=== PATIENT | male | born 1955 | race Caucasian/White ===

== ENCOUNTER → 2024-06-10 | Outpatient (CLI) | payer MEDICARE, SELFPAY ==
[2024-06-10 17:35] LABS: Color, Urine Yellow (Yellow); Glucose, Dipstick Normal (Normal); Ketone-Dipstick 5 mg/dl (Negative); Leukocyte Esterase-Dipstick 25 /ul (Negative); Nitrite-Dipstick Negative (Negative); Occult Blood-Urine 10 /ul (Negative); Protein-Dipstick Negative (Negative); Specific Gravity, Urine 1.025 (1.002-1.030); Urine Bilirubin Dipstick Negative (Negative); Urine Clarity Clear (Clear); Urine Urobilinogen 1 mg/dl (Normal)
[2024-06-10 17:42] LABS: Absolute Lymphocyte Count 4.28 X10^3/uL (0.83-4.51); Absolute Neutrophil Count 8.1 X10^3/uL (2.0-7.7); Basophil% 0.7 % (0-1); Eosinophil# 0.23 X10^3/uL; Eosinophils% 1.7 % (0-5); Hematocrit 45.1 % (40-54); Hemoglobin 14.4 g/dL (13.0-16.5); Lymphocyte # 4.28 X10^3/ul (0.83-4.51); Lymphocyte % 31.3 % (19-41); Mean Corp Hgb Conc 31.9 g/dL (32-36); Mean Corpuscular Hgb 28.3 pg (27.0-32.0); Mean Corpuscular Volume 88.6 fL (80-94); Mean Platelet Vol. 9.9 fl (6.2-12.0); Monocyte# 0.89 X10^3/uL; Monocyte% 6.5 % (0-10); NRBC Flagged by Analyzer 0 % (0-5); Neutrophil % 59.4 % (47-70); Platelet Count 372 K/mm3 (150-450); RBC Distribution Width CV 13.2 % (11.6-14.6); RBC Distribution Width SD 43.1 fl (35.1-43.9); Red Blood Count 5.09 M/mm3 (4.6-6.2); White Blood Count 13.7 K/mm3 (4.4-11.0)
[2024-06-10 18:20] LABS: ALB/GLOB Ratio 0.9 RATIO (0.9-2.4); AST(SGOT) 15 U/L (15-37); Alanine Aminotransfer ALT/SGPT 22 U/L (16-61); Albumin, Serum 3.5 g/dL (3.2-5.0); Alkaline Phosphatase 66 U/L (45-117); Anion Gap 5 (5-15); BUN 19 mg/dL (7-18); BUN/Creat Ratio 20.7 RATIO (10-20); Calcium,Total 8.8 mg/dL (8.5-10.1); Chloride 108 mmol/L (98-107); Cholesterol 189 mg/dL (200); Creatinine, Serum 0.92 mg/dL (0.70-1.30); EST Glomerular Filtration Rate 87 mL/min (>60); Est Glom Filt Rate - Afr Amer 105 mL/min (>60); Globulin 3.7 g/dL (2.2-4.2); Glucose 92 mg/dL (74-106); High Density Lipoprotein 42 mg/dL; Potassium 4.1 mmol/L (3.5-5.1); Protein, Total 7.2 g/dL (6.4-8.2); Sodium Level 142 mmol/L (136-145); T4 Free Direct 1.05 ng/dL (0.76-1.46); Thyroid Stim Hormone (TSH) 0.384 uIU/mL (0.358-3.740); Triglycerides 240 mg/dL; Very Low Density Lipoprotein 48 mg/dL (5-40)
[2024-06-10 19:04] LABS: White Blood Cells 10-25 SEEN /hpf (0-5)
[2024-06-10 19:06] LABS: Mucous, Urine 1+ /hpf (<or=2+); Red Blood Cells-Urine 0-5 SEEN /hpf (0-5); Squamous Epithelial Cells - UA 0-5 SEEN /hpf (0-5)
[2024-06-10 19:08] LABS: Bacteria RARE /hpf (None Seen)
[2024-06-15 09:08] LABS: Anti-Thyroglobulin AB < 1.0 IU/mL (0.0-0.9); Thyroglobulin, Serum Qt. 8.2 ng/mL (1.4-29.2); Thyroid Peroxidase AB 14 IU/mL (0-34); Thyroid Stim Immunoglob <0.10 IU/L (0.00-0.55)
== END | disposition home or self-care (01) ==
PROVIDERS: PCP Family Medicine; Referring Provider Family Medicine; Visit Provider Family Medicine
DX: R82.81 Pyuria (principal); E78.5 Hyperlipidemia, unspecified; E01.0 Iodine-deficiency related diffuse (endemic) goiter
CPT/HCPCS: 36415; 80053; 80061; 81001; 84432; 84439; 84443; 84445; 85025; 86376; 86800; 87086

== ENCOUNTER → 2024-06-19 | Outpatient (CLI) | payer MEDICARE, SELFPAY ==
--- NOTE | 2024-06-19 11:12 | US_ITS ---
EXAM: US SOFT TISSUES HEAD AND NECK, THYROID CLINICAL INDICATION: THYROMEGALY TECHNIQUE: Ramsay scale and color doppler imaging was performed of the thyroid gland. COMPARISON: No relevant prior studies available. FINDINGS: LEFT THYROID LOBE: Left thyroid lobe measures 4.7 x 1.4 x 2.7 cm. Tiny millimeters nodule noted. This nodule is mixed cystic and solid, hyperechoic or isoechoic, [id number], smoothly marginated and contains no echogenic foci. TI-RADS points: 2. TI-RADS category: TR2. This nodule is not suspicious and no FNA or follow-up is necessary. RIGHT THYROID LOBE: Right thyroid lobe measures 5.2 x 1.3 x 2.5 cm. 5 mm colloid cyst noted. There is also a 3 mm hypoechoic nodule appearing wider than tall, well-defined and without microcalcification. TI-RADS points: 4. TI-RADS category: TR4. This nodule is moderately suspicious but no FNA or follow-up is necessary given the small size of this nodule. ISTHMUS: Isthmus measures 2.3 mm in AP dimension. No thyroid nodules are present. US/Thyroid IMPRESSION: Thyromegaly with nodules noted bilaterally as described above. Electronically Signed: Noble Freeman MD at 13:38 EST ,
== END | disposition home or self-care (01) ==
PROVIDERS: PCP Family Medicine; Referring Provider Family Medicine; Visit Provider Family Medicine
DX: E01.0 Iodine-deficiency related diffuse (endemic) goiter (principal)
CPT/HCPCS: 76536

== ENCOUNTER → 2024-09-01 | Outpatient (CLI) | payer MEDICARE, SELFPAY ==
--- NOTE | 2024-09-01 16:10 | RAD_ITS ---
PROCEDURE: KNEE 3 VIEWS 09/01/2024 REASON FOR EXAM: PAIN, FALL TECHNIQUE: 3 view(s) of the right knee COMPARISON: None available FINDINGS: Bones: No acute displaced fracture or dislocation. Joints: Joint spaces are preserved. Effusion: No joint effusion Soft tissues: No overlying soft tissue swelling Other: None RAD/Knee 3 Views IMPRESSION: No acute displaced fracture or dislocation. Reading Location: [id number]
== END | disposition home or self-care (01) ==
LOC: MTRAD 16:10
PROVIDERS: PCP Family Medicine; Referring Provider Family Medicine; Visit Provider Family Medicine
DX: M25.561 Pain in right knee (principal)
CPT/HCPCS: 73562

== ENCOUNTER → 2024-10-07 | Outpatient (CLI) | payer MEDICARE, SELFPAY ==
[2024-10-07 10:48] LABS: PSA,Total - Annual Screen 3.68 ng/mL (0.02-4.00)
== END | disposition home or self-care (01) ==
LOC: MFPLAB 09:29
PROVIDERS: PCP Family Medicine; Referring Provider Family Medicine; Visit Provider Family Medicine
DX: Z12.5 Encounter for screening for malignant neoplasm of prostate (principal)
CPT/HCPCS: 36415; 84153; G0103

== ENCOUNTER → 2024-11-23 | Outpatient (CLI) | payer MEDICARE, SELFPAY ==
--- NOTE | 2024-11-23 08:07 | CT_ITS ---
PROCEDURE: LOW DOSE CT LUNG SCREENING 11/23/2024 REASON FOR EXAM: SMOKER 1 pack per day smoker times 54 years, quit 3 years ago TECHNIQUE: LOW DOSE CT LUNG SCREENING Coronal and Sagittal reconstruction series were provided. One or more dose reduction techniques were used (e.g., Automated exposure control, adjustment of the mA and/or kV according to patient size, use of iterative reconstruction technique). REFERENCE LINK: [employer] Lung-RADS RADIATION DOSE SUMMARY: CTDlvol: 3.18 mGy DLP: 109.20 mGycm COMPARISON: None FINDINGS: Lung windows show underlying emphysema with nonspecific pleural thickening in both apices in both hemithoraces. Emphysematous blebs noted throughout both lung hall, there is evidence of chronic bronchitis but no organized infiltrate or effusion. No suspicious noncalcified mass or nodule. Soft tissue windows show a normal-appearing thyroid gland. No suspicious adenopathy. There are calcified coronary vessels. The thoracic aorta tapers normally. Bony structures show degenerative change. Limited cuts of the upper abdomen show a low-density lesion within the liver which is incompletely evaluated. CT/Low Dose CT Lung Screening IMPRESSION: Underlying emphysema without evidence of a superimposed process or suspicious n oncalcified mass or nodule Coronary artery calcification (CAC) is is present Lung-RADS Category: 2 BENIGN (BASED ON IMAGING FEATURES OR INDOLENT BEHAVIOR). RECOMMEND 12-MONTH SCREENING LDCT. Other Significant Findings: Incompletely evaluated low-density lesion within th e liver, likely a cyst but further evaluation of this is needed with either ultrasound or contrasted CT or MRI Reading Location: [id number]
== END | disposition home or self-care (01) ==
LOC: CT 08:05
PROVIDERS: PCP Family Medicine; Referring Provider Family Medicine; Visit Provider Family Medicine
DX: F17.210 Nicotine dependence, cigarettes, uncomplicated (principal)
CPT/HCPCS: 71271

== ENCOUNTER → 2024-11-29 | Outpatient (CLI) | payer MEDICARE, SELFPAY | END | disposition home or self-care (01) | LOC: CVS 08:22 → US 08:22 | PROVIDERS: PCP Family Medicine; Referring Provider Family Medicine; Visit Provider Family Medicine | DX: K76.89 Other specified diseases of liver (principal) | CPT/HCPCS: 76705 ==

== ENCOUNTER → 2024-12-22 | Outpatient (CLI) | payer MEDICARE, SELFPAY ==
--- NOTE | 2024-12-22 06:06 | CT_ITS ---
PROCEDURE: ABDOMEN W/WO IV CONTRAST 12/22/2024 REASON FOR EXAM: Abnormal ultrasound TECHNIQUE: ABDOMEN W/WO IV CONTRAST. Multiplanar Sagittal and Coronal images were obtained. One or more dose reduction techniques were used (e.g., Automated exposure control, adjustment of the mA and/or kV according to patient size, use of iterative reconstruction technique. CONTRAST: Isovue 370 VOLUME: 100 mL RADIATION DOSE SUMMARY: CTDlvol: 82.68 mGy DLP: 2159.91 mGycm COMPARISON: Ultrasound from 11/30/2019 FINDINGS: Lung bases: Mild dependent atelectasis. There is a small 5 mm thick pericardial effusion Liver: Mild fatty infiltration of the liver is noted without a suspicious enhancing lesion. There are scattered simple cysts in the liver the largest is in the right lobe measuring 3.5 cm. Gallbladder: Surgically absent. Spleen: Normal size. Pancreas: Normal size without evidence of mass surrounding inflammation or ductal dilation. Adrenals: Unremarkable Kidneys: Normal renal sizes. No hydronephrosis. Bowel: Small bowel loops are unremarkable, retained stool noted in the colon with scattered diverticula. No CT evidence of acute diverticulitis. Lymph nodes: No suspicious mesenteric or retroperitoneal lymph nodes Vasculature: Peripheral calcifications in the aorta without aneurysm or dissection. Peritoneum / Retroperitoneum: No free fluid or air Bones: Degenerative bony changes with postsurgical changes noted in the lumbar spine. No hardware complication or failure CT/Abdomen W/WO IV Contrast IMPRESSION: Fatty infiltration of the liver with scattered simple hepatic cysts in both lob es. Largest is in the right lobe measuring 3.5 cm. No specific follow-up needed. No suspicious enhancing solid lesion. No free intraperitoneal fluid, air, or suspicious adenopathy, normal appendix v isualized on coronal recon images 67 through 75 Retained stool in the colon with scattered diverticula, no CT evidence of acute diverticulitis Degenerative and postsurgical changes in the lumbar spine without hardware comp lication or failure Reading Location: [id number]
--- OUTSIDE RECORDS SUMMARY | 2024-12-22 06:24 | XMS RPT_ITS | CCD ---
Author Organization [facility] Care Team Providers Care Keg Header Name Role Phone Jaqueline Shoemaker Unavailable NON STAFF Primary Care Provider Unavailabl CARLEY Church Attending Provider NO FAMILY, PHYSICIAN Primary Care Provider Unava ilTONI Wheeler Attending Provider MD Adiel Sandoval Attending Provider [phone] Unavailable Primary Care Provider Unavailabl e NO FAMILY, PHYSICIAN Primary Care Provider Unava Adiel Cavanaugh MD Attending Provider Lukas Tolliver PA-C Attending Provider YASMIN BENITES Attending Unavailable NO, PHYSICIAN Primary Care Unavailable MICHAEL ARNOLD Admitting Unavailable NANCY FRAUSTO Referring Unavailab le NANCY FRAUSTO Attending Unavailab le NO, PHYSICIAN Primary Care Unavailable NO FAMILY, PHYSICIAN Primary Care Provider Unava Bruno Wheatley MD Attending Provider [phone] NO FAMILY, PHYSICIAN Primary Care Provider Unava Bruno Wheatley MD Attending Provider NON STAFF Primary Care Provider Unavailabl e NO FAMILY, PHYSICIAN Primary Care Provider Unava Bruno Wheatley MD Attending Provider NON STAFF Primary Care Provider Unavailabl e NO FAMILY, PHYSICIAN Primary Care Provider Unava Bruno Wheatley MD Attending Provider [phone] Bruno Cruz MD Admit Provider Josesito MANN, Dr. Fabiana Rodas Primary Care Provider Josesito MANN, Dr. Fabiana Rodas Attending Provider Josesito MANN, Dr. Fabiana Rodas Referring Provider Fabiana Sharma MD Primary Care Provider HORTENCIA GILBERT Referring Unavailable FABIANA SHARMA Primary Care Unavailable HORTENCIA GILBERT Attending Unavailable FABIANA SHARMA Primary Care Unavailable Bruno Cruz MD Attending Provider [phone] NO FAMILY, PHYSICIAN Primary Care Provider Unava ilable Josesito MANN, Dr. Fabiana Rodas Primary Care Provider Josesito MANN, Dr. Fabiana Rodas Attending Provider Josesito MANN, Dr. Fabiana Rodas Referring Provider Josesito MANN, Dr. Fabiana Rodas Primary Care Provider Josesito MANN, Dr. Fabiana Rodas Attending Provider Josesito MANN, Dr. Fabiana Rodas Referring Provider Cruz Bruno E Attending Unavailable Cruz, Bruno E Admitting Unavailable NO FAMILY, PHYSICIAN Primary Care Unavailable NON STAFF Primary Care Unavailable Cruz, Bruno E Attending Unavailable Cruz, Bruno E Admitting Unavailable Cruz, Bruno E Attending Unavailable Cruz, Bruno E Admitting Unavailable NON STAFF Primary Care Unavailable Curz, Bruno E Attending Unavailable Cruz, Bruno E Admitting Unavailable NO FAMILY, PHYSICIAN Primary Care Unavailable Cruz, Bruno E Admitting Unavailable Cruz, Bruno E Attending Unavailable NO FAMILY, PHYSICIAN Primary Care Unavailable Rita Floresna Attending Unavailable Sandra Nisreen Admitting Unavailable NO FAMILY, PHYSICIAN Primary Care Unavailable Jaime Adiel S Admitting Unavailable Adiel Sandoval S Attending Unavailable NO FAMILY, PHYSICIAN Primary Care Unavailable NO FAMILY, PHYSICIAN Primary Care Unavailable Lukas Tolliver Admitting Unavailable Lukas Tolliver Attending Unavailable Cruz, Bruno E Attending Unavailable Cruz, Bruno E Admitting Unavailable NO FAMILY, PHYSICIAN Primary Care Unavailable Cruz, Bruno E Attending Unavailable Cruz, Bruno E Admitting Unavailable NO FAMILY, PHYSICIAN Primary Care Unavailable Cruz, Bruno E Attending Unavailable Cruz, Bruno E Admitting Unavailable NO FAMILY, PHYSICIAN Primary Care Unavailable Jaime, Adiel S Admitting Unavailable Jaime, Adiel S Attending Unavailable NO FAMILY, PHYSICIAN Primary Care Unavailable Fabiana Sharma Primary Care Unavailable Fabiana Sharma Referring Unavailable Fabiana Sharma Attending Unavailable Fabiana Sharma Referring Unavailable Fabiana Sharma Attending Unavailable Fabiana Sharma Primary Care Unavailable Fabiana Sharma Referring Unavailable Fabiana Sharma Attending Unavailable Fabiana Sharma Primary Care Unavailable Fabiana Sharma Referring Unavailable Fabiana Sharma Primary Care Unavailable Fabiana Sharma Attending Unavailable Fabiana Sharma Primary Care Unavailable Fabiana Sharma Referring Unavailable Fabiana Sharma Attending Unavailable Fabiana Sharma Primary Care Unavailable Fabiana Sahrma Referring Unavailable Fabiana Sharma Attending Unavailable Fabiana Sharma Primary Care Unavailable Fabiana Sharma Referring Unavailable Fabiana Sharma Attending Unavailable Medications Current Medications Medication Drug Class(es) Dates Sig (Normalized) Sig (Original) amoxicillin 875 mg oral tablet (2 sources) Penicillin-class Antibacterial Start: 10-31-2014 take 1 tablet by mouth every twelve hours Amoxicillin 875 MG 1 tablet Orally Twice a day for 7 day(s) Oct, Active docusate sodium 100 mg oral capsule (2 sources) take 1 capsule by mouth once daily as needed Colace 100 mg 1 capsule as needed Orally Once a day/PRN Active doxycycline monohydrate 100 mg oral tablet (2 sources) Tetracycline-class Drug Start: 05-28-2024 End: 06-04-2024 take 1 tablet by mouth twice daily doxycycline monohydrate 100 mg tablet Indications: Lower resp. tract infection , Pneumonia exposure Take 1 tablet by mouth two times a day for 7 days. 14 tablet 05/28/2024 06/04/2024 Active Start: 04-02-2024 End: 04-16-2024 take 1 capsule by mouth twice daily doxycycline hyclate (VIBRAMYCIN) 100 mg capsule Indications: Puncture wound Take 1 capsule (100 mg) by mouth two times a day for 14 days. 28 capsule 04/02/2024 04/16/2024 Active 72 hr fentaNYL 0.025 mg/hr transdermal system (2 sources) Opioid Agonist apply 25 ug transdermal route every hour fentaNYL 25 MCG/HR 1 patch to skin Transdermal Active fluticasone propionate 0.05 mg/actuat metered dose nasal spray (1 source) Corticosteroid Start: 025 take 2 spray(s) by mouth once daily fluticasone (FLONASE) 50 mcg/actuation nasal spray Use 2 sprays in each nostril once daily. Rinse mouth after use. 9.9 mL 09/20/2024 Active ibuprofen 800 mg oral tablet (17 sources) Nonsteroidal Anti-inflammatory Drug Start: 024 take 1 tablet by mouth every eight hours as needed for pain Ibuprofen 800 mg tablet Active 800 MG PO Every 8 hours as needed for pain September 09, 2023 12:00am POLYETHYLENE GLYCOL 3350 (2 sources) Osmotic Laxative Miralax 17 gram s orally at hour of sleep Active Completed/Discontinued Medications Medication Drug Class(es) Dates Sig (Normalized) Sig (Original) cephalexin 500 mg oral capsule (6 sources) Cephalosporin Antibacterial Start: 08-13-2024 End: 08-26-2024 take 1 capsule by mouth three times daily Cephalexin 500 mg capsule Discontinued 500 MG PO Three times daily August 13, 2024 12:00am August 26, 2024 1:18pm take 1 capsule by mouth three ti mes daily Keflex 500 mg 1 capsule Orally tid Active cyclobenzaprine hydrochloride 10 mg oral tablet (6 sources) Muscle Relaxant Start: 08-13-2024 End: 10-05-2024 take 1 tablet by mouth three times daily as needed for muscle spasms Cyclobenzaprine 10 mg tablet Discontinued 10 MG PO Three times daily as needed for back spasms August 13, 2024 12:00am October 05, 2024 1:27pm take 1 tablet by cristobal th every eight hours Cyclobenzaprine HCl 10 MG 1 tablet Orall y Three times a day Active diazePAM 5 mg oral tablet (1 source) Benzodiazepine Start: 08-02-2014 End: 04-02-2024 diazepam (VALIUM) 5 mg tablet Take 1 tab orally 30 minutes prior to procedure and may repeat x1. 2 tablet 0 08/02/2014 04/02/2024 Discontinued (Other) DULoxetine 30 mg delayed release oral capsule (1 source) Serotonin and Norepinephrine Reuptake Inhibitor Start: 09-07-2014 End: 04-02-2024 take 1 capsule by mouth once daily DULoxetine (CYMBALTA) 30 mg capsule Take 1 capsule by mouth once daily. 30 capsule 0 09/07/2014 04/02/2024 Discontinued (Other) gabapentin 300 mg oral capsule (20 sources) Anti-epileptic Agent Start: 05-31-2024 End: 07-21-2024 Gabapentin 300 mg capsule Discontinued 0 .ROUTE .COMPLEX 60 July 02, 2024 10:34am July 21, 2024 10:38am TAKE 1 CAPSULE BY MOUTH AT BEDTIME FOR 3 TO 5 DAYS, THEN INCREASE TO TWICE DAILY TOLERATED. Start: 05-06-2024 End: 05-31-2024 Gabapentin 300 mg capsule Di scontinued 300 MG PO .COMPLEX 60 May 06, 2024 1:00am May 31, 2024 9:20am 300 mg orally take 1 capsule at bedtime for 3-5 days then increase to twice daily as tolerated; oxyCODONE hydrochloride 5 mg oral tablet (11 sources) Opioid Agonist Start: 08-13-2024 End: 10-05-2024 take 5-10 mg by mouth every six hours as needed for pain Oxycodone 5 mg tablet Discontinued 5 - 10 MG PO Q6H as needed for Pain 56 August 27, 2024 October 05, 2024 1:27pm take 1-2 tablets by mouth every six hours oxyCODONE HCl 5 mg 1-2 tablets Orally every 6 hrs Active predniSONE 10 mg oral tablet (18 sources) Start: 08-13-2024 End: 08-26-2024 Prednisone 10 mg tablets,dos e pack Discontinued 1 dose pk PO per package directions August 13, 2024 12:00am August 26, 2024 1:18pm take 4 tabs for 3 days then take 3 tabs for 3 days then take 2 tabs for 3 days then take 1 tab for 3 days Start: 12-18-2023 End: 01-30-2024 take 4 tablets by mouth once daily, then take 1 tablet by mouth once daily Prednisone 10 mg tablet Discontinued 10 MG PO As Directed December 18, 2023 12:00am January 30, 2024 9:34am see taper instructions Take 40 mg daily x 3 days then Take 20 mg daily x 3 days Then 10 mg daily x 3 days Start: 12-18-2023 End: 01-30-2024 take 40 mg by mouth once daily, then take 10 mg by mouth once daily Prednisone Discontinued 10 MG PO As Directed December 18, 2023 12:00am January 30, 2024 9:34am see taper instructions Take 40 mg daily x 3 days then Take 20 mg daily x 3 days Then 10 mg daily x 3 days VITAMIN B COMPLEX ORAL (1 source) End: 04-02-2024 VITAMIN B COMPLEX ORAL Indic ations: Neuralgia, neuritis, and radiculitis, unspecified , Lumbago Take by mouth. 04/02/2024 Discontinued Problems Active Problems Problem Classification Problem Date Documented Date Episodic/Chronic Immunizations and screening for infectious disease (1 source) Contact with and (suspected) exposure to other communicable diseases; Translations: [Contact with or exposure to other communicable diseases] 05-28-2024 Episodic Nonspecific chest pain (4 sources) Chest pain, unspecified; Translations: [Chest pain, unspecified] Onset: 05-15-2024 Episodic Osteoarthritis (18 sources) Osteoarthritis of left hip joint; Translations: [Unilateral primary osteoarthritis, left hip] Onset: 01-30-2024 01-30-2024 Chronic Osteoporosis (1 source) Age-related osteoporosis without current pathological fracture; Translations: [Age-related osteoporosis without current pathological fracture] Onset: 06-10-2024 Chronic Other acquired deformities (4 sources) Spondylolisthesis, lumbar region; Translations: [Acquired spondylolisthesis] Onset: 11-16-2024 07-22-2023 Episodic Other connective tissue disease (17 sources) Trochanteric bursitis; Translations: [Trochanteric bursitis, left hip] 09-09-2023 Episodic Other connective tissue disease (15 sources) Trochanteric bursitis, left hip; Translations: [Enthesopathy of hip region] 09-09-2023 Episodic Other injuries and conditions due to external causes (1 source) Puncture wound - injury; Translations: [Other injury of unspecified body region, initial encounter] 04-02-2024 Episodic Other liver diseases (2 sources) Other specified diseases of liver; Translations: [Other specified diseases of liver] Onset: 12-02-2024 Chronic Other lower respiratory disease (1 source) Lower respiratory tract infection; Translations: [Unspecified acute lower respiratory infection] 05-28-2024 Episodic Other lower respiratory disease (1 source) Cough; Translations: [Acute cough] 09-20-2024 Episodic Other nervous system disorders (16 sources) Chronic pain; Translations: [Other chronic pain] 09-17-2023 Chronic Other nervous system disorders (15 sources) Other chronic pain; Translations: [Other chronic pain] Onset: 02-11-2024 09-17-2023 Chronic Other nervous system disorders (3 sources) Peripheral nerve disease ; Translations: [Polyneuropathy, unspecified] Onset: 12-29-2012 12-29-2012 Chronic Other nervous system disorders (1 source) Difficulty in walking, not elsewhere classified; Translations: [Difficulty in walking, not elsewhere classified] Onset: 08-11-2024 Chronic Other non-traumatic joint disorders (16 sources) Hip pain; Translations: [Pain in left hip] 09-17-2023 Episodic Other nutritional; endocrine; and metabolic disorders (2 sources) Body mass index 30+ - obesity; Translations: [Body mass index (BMI) 31.0-31.9, adult] Chronic Other nutritional; endocrine; and metabolic disorders (1 source) Body mass index (BMI) 31.0-31.9, adult Chronic Other screening for suspected conditions (not mental disorders or infectious disease) (1 source) Encounter for screening for malignant neoplasm of prostate; Translations: [Encounter for screening for malignant neoplasm of prostate] Onset: 10-12-2024 Episodic Other upper respiratory infections (1 source) Acute sinusitis, unspecified; Translations: [Acute non-recurrent sinusitis, unspecified location] Onset: 09-20-2024 Episodic Screening and history of mental health and substance abuse codes (1 source) Encounter for screening for depression Episodic Spondylosis; intervertebral disc disorders; other back problems (20 sources) Degeneration of lumbar intervertebral disc; Translations: [DDD (degenerative disc disease), lumbar] Onset: 10-22-2011 Chronic Spondylosis; intervertebral disc disorders; other back problems (20 sources) Radiculopathy, lumbar region; Translations: [Neurogenic claudication] Onset: 10-22-2011 Episodic Substance-related disorders (2 sources) Nicotine dependence, unspecified, uncomplicated; Translations: [Nicotine dependence, cigarettes, uncomplicated] Onset: 07-28-2024 Chronic Thyroid disorders (1 source) Iodine-deficiency related diffuse (endemic) goiter; Translations: [Iodine-deficiency related diffuse (endemic) goiter] Onset: 08-19-2024 Chronic Unclassified (1 source) Acute cough; Translations: [Acute cough] Onset: 09-20-2024 Unclassified (1 source) Low back pain, unspecified; Translations: [Low back pain, unspecified] Onset: 04-20-2024 Unclassified (1 source) Pyuria; Translations: [Pyuria] Onset: 07-01-2024 Past or Other Problems Problem Classification Problem Date Documented Da te Episodic/Chronic Other connective tissue disease (3 sources) Neuropathy; Translations: [Neuralgia, neuritis, and radiculitis, unspecified] Onset: 10-22-2011 10-22-2011 Episodic Other non-traumatic joint disorders (6 sources) Pain in left hip; Translations: [Pain in joint, pelvic region and thigh] Onset: 04-01-2024 09-17-2023 Episodic Other non-traumatic joint disorders (18 sources) Pain in right shoulder; Translations: [Right shoulder pain] Onset: 01-30-2024 01-30-2024 Episodic Other non-traumatic joint disorders (1 source) Pain in right knee; Translations: [Pain in right knee] Onset: 09-07-2024 Episodic Residual codes; unclassified (3 sources) Tobacco user; Translations: [Tobacco use] Onset: 10-22-2011 10-22-2011 Episodic Results Test Name Value Interpretation Reference Range Facility Abdomen Limitedon 11-29-2024 Abdomen Limited [facility] Imaging Services [address] [place] [id number] Abdomen Limited MR#: [id number] Acct: [id number] Name: SOFIA CALVIN Rep #: [id number] : 1955 M 69 From: Lewis funez MD PCP: Dr. Fabiana Sharma MD Status: REG CLI Study: Abdomen Limited Date of Exam: 11/29/24 Exam# [id number] Ordering Dr: Fabiana Sharma MD PROCEDURE: ABDOMEN LIMITED 11/29/2024 REASON FOR EXAM: DIAGNOSIS OF LIVER CYST COMPARISON: None FINDINGS: Liver: Grossly normal size and echotexture. There is a 2.1 cm 2.1 cm 2.7 cm septated cyst in the right lobe of the liver. Gallbladder: Surgically absent. Common bile duct: Normal measuring 3.8 mm. . Pancreas: Visualized portions are unremarkable. The distal body and tail are obscured by bowel gas. Other: Visualized portions of the right kidney are unremarkable. No right upper quadrant ascites. US/Abdomen Limited IMPRESSION: Septated cyst in the right lobe of the liver. Status post cholecystectomy. Reading Location: [place] [address] CC: Dr. Fabiana Sharma MD Senior Medical Director: Signed Normal [facility] Low Dose CT Lung Screeningon 11-23-[address] Lung Screening [facility] Imaging Services [address] [place] [address] Lung Screening MR#: [id number] Acct: [id number] Name: SOFIA CALVIN Rep #: [id number] : 1955 M 69 From: Eleazar Wu MD PCP: Dr. Fabiana Sharma MD Status: [facility] CLI Study: Low Dose CT Lung Screening Date of Exam: 11/23 Exam# [id number] Ordering Dr: Fabiana Sharma MD PROCEDURE: LOW DOSE CT LUNG SCREENING 11/23/2024 REASON FOR EXAM: SMOKER 1 pack per day smoker times 54 years, quit 3 years ago TECHNIQUE: LOW DOSE CT LUNG SCREENING Coronal and Sagittal reconstruction series were provided. One or more dose reduction techniques were used (e.g., Automated exposure control, adjustment of the mA and/or kV according to patient size, use of iterative reconstruction technique). REFERENCE LINK: Engage Lung-RADS RADIATION DOSE SUMMARY: CTDlvol: 3.18 mGy DLP: 109.20 mGycm COMPARISON: None FINDINGS: Lung windows show underlying emphysema with nonspecific pleural thickening in both apices in both hemithoraces. Emphysematous blebs noted throughout both lung hall, there is evidence of chronic bronchitis but no organized infiltrate or effusion. No suspicious noncalcified mass or nodule. Soft tissue windows show a normal-appearing thyroid gland. No suspicious adenopathy. There are calcified coronary vessels. The thoracic aorta tapers normally. Bony structures show degenerative change. Limited cuts of the upper abdomen show a low-density lesion within the liver which is incompletely evaluated. CT/Low Dose CT Lung Screening IMPRESSION: Underlying emphysema without evidence of a superimposed process or suspicious noncalcified mass or nodule Coronary artery calcification (CAC) is is present Lung-RADS Category: 2 BENIGN (BASED ON IMAGING FEATURES OR INDOLENT BEHAVIOR). RECOMMEND 12-MONTH SCREENING LDCT. Other Significant Findings: Incompletely evaluated low-density lesion within the liver, likely a cyst but further evaluation of this is needed with either ultrasound or contrasted CT or MRI Reading Location: [id number] CC: Dr. Fabiana Sharma MD Senior Medical Director: Signed Normal [facility] XR lumbar spine 2-3V*on 10-25 XR lumbar spine 2-3V* [facility] [place] [address] [place] [address] XRay Report Signed Patient: Sofia Calvin MR#: [id number] 10 : 1955 Acct:[id number] Age/Sex: 69 / M ADM Date: 11/16/24 Loc: XD Room: Type: [facility] Attending Dr: Bruno Cruz MD Copies to: Bruno Cruz MD Ordering Provider: Bruno Cruz MD Date of Service: 11/16/24 XR/XR lumbar spine 2-3V*: M54.16 - Radiculopathy, lumbar region LUMBAR SPINE - 2 views CLINICAL HISTORY: Numbness and tingling in lower extremities. Follow up lumbar fusion COMPARISON: Lumbar spine 10/05/2024 FINDINGS: Posterior hardware fixation L3-L4 without hardware complication. Retained pedicular screws are seen involving S1 unchanged. Vertebral body heights appear maintained. XR/XR lumbar spine 2-3V* IMPRESSION: NO NEW HARDWARE COMPLICATION. Impression dictated by: Christian Obrien Jr., D.OKaycee 11/16/2024 2:18 PM Dictation Location: [facility]-22 Transcribed By: [facility] 11/16/24 1418 Dictated By: Christian Obrien Jr, DO 11/16/24 1412 Signed By: 11/16/24 1418 Normal [facility] PSA,Total - Annual Screenon 10-07-2024 PSA,TOT SCREEN 3.68 ng/mL Normal 0.02-4.00 [facility] Comment on above: Order Comment: Order Date: 10/07/24 Order Info: [id number] - PSA Result Comment: This test was performed using the [employer] tPSA method. Measured values of a patient??sample can vary depending on the testing procedure used. PSA values determined on patient samples by different testing procedures cannot be used interchangeably. If there is a change in PSA assays while monitoring therapy, sequential testing should be performed to confirm baseline values. Performed By: #### L [id number] #### [facility] [address] [place], [address] X-ray reportOrdered By: Bennett Obrien on 10-05-2024 Study report [facility] [place] [address] [place] [address] XRay Report Signed Patient: Sofia Calvin MR#: [id number] : 1955 Acct:[id number] Age/Sex: 69 / M ADM Date: 5 Loc: XD Room: Type: [facility] Attending Dr: Bruno Cruz MD Copies to: Bruno Cruz MD~ Ordering Provider: Bruno Cruz MD Date of Service: 10/05/24 XR/XR lumbar spine 2-3V*: M54.16 - Radiculopathy, lumbar region LUMBAR SPINE - 2 views CLINICAL HISTORY: Follow-up lumbar surgery COMPARISON: Lumbar spine 08/12/2024 FINDINGS: Posterior hardware fixation L2-L4 without hardware complication. Retained screws are seen involving S1. Vertebral body heights appear maintained. Scattered endplate and facet joint degenerative changes. SI jointsalso demonstrate degenerative change. XR/XR lumbar spine 2-3V* IMPRESSION: POSTERIOR HARDWARE FIXATION L2-L4 WITHOUT HARDWARE COMPLICATION. Impression dictated by: Christian Obrien Jr., D.OKaycee 10/05/2024 1:06 PM Dictation Location: [place] [address] Transcribed By: [facility] 10/05/24 1306 Dictated By: Christian Obrien Jr, DO 10/05/24 1304 Signed By: 10/05/24 1306 [facility] XR lumbar spine 2-3V*on 05-1 3-2025 XR lumbar spine 2-3V* [facility] [place] [address] [place] [address] XRay Report Signed Patient: Sofia Calvin MR#: [id number] 10 : 1955 Acct:[id number] Age/Sex: 69 / M ADM Date: 10/05/24 Loc: XD Room: Type: [facility] Attending Dr: Bruno Cruz MD Copies to: Bruno Cruz MD Ordering Provider: Bruno Cruz MD Date of Service: 10/05/24 XR/XR lumbar spine 2-3V*: M54.16 - Radiculopathy, lumbar region LUMBAR SPINE - 2 views CLINICAL HISTORY: Follow-up lumbar surgery COMPARISON: Lumbar spine 08/12/2024 FINDINGS: Posterior hardware fixation L2-L4 without hardware complication. Retained screws are seen involving S1. Vertebral body heights appear maintained. Scattered endplate and facet joint degenerative changes. SI joints also demonstrate degenerative change. XR/XR lumbar spine 2-3V* IMPRESSION: POSTERIOR HARDWARE FIXATION L2-L4 WITHOUT HARDWARE COMPLICATION. Impression dictated by: Christian Obrien Jr., D.O. 10/05/2024 1:06 PM Dictation Location: [facility]- Transcribed By: [facility] 10/05/24 1306 Dictated By: Christian Obrien Jr, DO 10/05/24 1304 Signed By: 10/05/24 1306 Normal [facility] CNOVon 09-20-2024 CNOV Office Visit (UCWSTR ) -- MARIXASOFIA Weaver ([id number]) 1955 M Date Time Provider Department 09/20/24 9:30 AM HORTENCIA GILBERT [facility] During your visit today, we recorded the following information about you: Temperature Pulse Respiration Blood pressure 98.1 degrees 95/minute 18/minute 122/86 Weight 102.4 kg [place], Hortencia M, PA-C 09/20/2024 10:22 AM Signed SUBJECTIVE Sofia Weaver Marixa is a 68 year old male who presents with 1 week of symptoms that are stable. Symptoms include: Fever (>=100.4F): No or Chills: yes Cough: Yes Shortness of breath: No or Difficulty breathing: No Fatigue: Yes Muscle aches: Yes Headache: Yes New loss of smell or taste: No Sore throat: No Nasal congestion: Yes or Rhinorrhea: No Nausea: Yes or Vomiting: No Diarrhea: No PAST MEDICAL HISTORY Diagnosis Date Peripheral neuropathy No past surgical history on file. ALLERGIES Patient has no known allergies. MEDICATIONS gabapentin (NEURONTIN) 300 mg capsule Take 300 mg by mouth two times a day. No family history on file. Social History Tobacco Use Smoking status: Every Day Tobacco comments: On e-cig now OTC meds/remedies that patient has tried: Mucinex daily antihistamine. High risk category assessment He reports that he has been smoking. He does not have any smokeless tobacco history on file. OBJECTIVE BP 122/86 (BP Site: Left Arm, BP Position: Sitting, BP Cuff Size: Regular Adult) Pulse 95 Temp 36.7 ?C (98.1 ?F) (Tympanic) Resp 18 Wt 102.4 kg (225 lb 12 oz) SpO2 96% GENERAL: well appearing, alert, in no acute distress HEENT: no conjunctival injection, pupils equal, moist mucous membranes, oropharynx clear without erythema, and TMs clear bilaterally PULMONARY: breathing comfortably on room air , no coughing noted, no wheezing noted, and lungs CTA bilaterally Heart: RRR Last XR Chest - Impression Only XR CHEST 2V FRONTAL/LAT Exam End: 09/20/2024 9:54 AM (Final result) Impression: IMPRESSION: No acute radiographic abnormality. ... ASSESSMENT/PLAN: 1. Acute cough - ICD9: 786.2, ICD10: R05.1 (primary diagnosis) - XR CHEST 2V FRONTAL/LAT 2. Acute non-recurrent sinusitis, unspecified location - ICD9: 461.9, ICD10: J01.90 - Will begin treatment with Doxycycline - Supportive care with plenty of fluids, rest, and analgesia prn. - flonase nasal spray for congestion and daily antihistamine Patient declines COVID/flu and RSV testing here Hortencia Gilbert PA-C This note was partially generated using [employer] voice recognition system, any errors noted are unintentional and are due to this technology. Patient declines printed AVS. Prefers to look at AVS in [place]. s History and Record Review External record(s) reviewed: prior outpatient record. Differential Diagnoses - uri/sinusitis is more likely for the following reason(s): suggested by HANDP - pneumonia is less likely for the following reason(s): no evidence on imaging Disposition The patient was discharged. OTC Medications were advised: Procedures Hortencia Gilbert PA-C 09/20/2024 10:21 AM Signed [facility] PATIENT INFO ACUTE SINUSITIS OVERVIEW Rhinosinusitis, or more commonly sinusitis, is the medical term for inflammation (swelling) of the lining of the sinuses and nose. The sinuses are the hollow areas within the facial bones that are connected to the nasal openings. The sinuses are lined with mucous membranes, similar to the inside of the nose. There are two main types of sinusitis: acute and chronic. Acute sinusitis is inflammation that lasts for less than four weeks while chronic sinusitis lasts for more than 12 weeks. Acute sinusitis is common, affecting approximately one million people per year in the [place]. ACUTE SINUSITIS CAUSES The most common cause of acute sinusitis is a viral infection associated with the common cold. Bacterial sinusitis occurs much less commonly, in only 0.5 to 2 percent of cases, usually as a complication of viral sinusitis. Because antibiotics are effective only against bacterial, and not viral, infections, most people do not need antibiotics for acute sinusitis. ACUTE SINUSITIS SYMPTOMS Symptoms of acute sinusitis include: Nasal congestion or blockage Thick, yellow to green discharge from the nose Pain in the teeth Pain or pressure in the face that is worse when bending forwards Other acute sinusitis symptoms can include fever (temperature greater than 100.4?F or 38?C), fatigue, cough, difficulty or inability to smell, ear pressure or fullness, headache, and bad breath. In most cases, these symptoms develop over the course of one day and begin to improve within seven to 10 days. DO I NEED TO BE EXAMINED? It is difficult to know if you have a viral or bacterial sinus infection initially. However, most people with a viral infection improve without treatment (more content not included)... Normal [facility] XR CHEST 2V FRONTAL/LATon XR CHEST 2V FRONTAL/LAT * * *Final Report* * * DATE OF EXAM: Sep 20 2024 9:54AM WOX 5291 - XR CHEST 2V FRONTAL/LAT / PROCEDURE REASON: Acute cough * * * * Physician Interpretation * * * * EXAMINATION: CHEST RADIOGRAPH (2 VIEW FRONTAL and LATERAL) CLINICAL HISTORY: Acute cough MQ: XC2_6 EXAM DATE/TIME: 09/20/2024 9:54 AM COMPARISON: Chest x-ray dated 04/17/2013 RESULT: Lines, tubes, and devices: None. Lungs and pleura: No consolidation. No lung mass. No pleural effusion. No pneumothorax. Cardiomediastinal silhouette: Normal cardiomediastinal silhouette. Bones and soft tissues: Degenerative changes are present within the thoracic spine. IMPRESSION: No acute radiographic abnormality. Senior Medical Director: [facility] Transcribe Date/Time: Sep 20 2024 9:58A Dictated by : ALEX SARKAR MD This examination was interpreted and the report reviewed and electronically signed by: ALEX SARKAR MD on Sep 20 2024 9:59AM EST [id number] Normal [facility] XR Chest PA and Lateralon IMPRESSION: No acute radiographic abnormality. Senior Medical Director: [facility] Transcribe Date/Time: Sep 20 2024 9:58A Dictated by : ALEX SARKAR MD This examination was interpreted and the report reviewed and electronically signed by: ALEX SARKAR MD on Sep 20 2024 9:59AM EST DIVISION OF RADIOLOGY * * *Final Report* * * DATE OF EXAM: Sep 20 2024 9:54AM WOX 5291 - XR CHEST 2V FRONTAL/LAT / PROCEDURE REASON: Acute cough * * * * Physician Interpretation * * * * EXAMINATION: CHEST RADIOGRAPH (2 VIEW FRONTAL & LATERAL) CLINICAL HISTORY: Acute cough MQ: XC2_6 EXAM DATE/TIME: 09/20/2024 9:54 AM COMPARISON: Chest x-ray dated 04/17/2013 RESULT: Lines, tubes, and devices: None. Lungs and pleura: No consolidation. No lung mass. No pleural effusion. No pneumothorax. Cardiomediastinal silhouette: Normal cardiomediastinal silhouette. Bones and soft tissues: Degenerative changes are present within the thoracic spine. DIVISION OF RADIOLOGY Provider, Elvis Ibrahim - 09/20/2024 * * *Final Report* * * DATE OF EXAM: Sep 20 2024 9:54AM WOX 5291 - XR CHEST 2V FRONTAL/LAT / PROCEDURE REASON: Acute cough * * * * Physician Interpretation * * * * EXAMINATION: CHEST RADIOGRAPH (2 VIEW FRONTAL & LATERAL) CLINICAL HISTORY: Acute cough MQ: XC2_6 EXAM DATE/TIME: 09/20/2024 9:54 AM COMPARISON: Chest x-ray dated 04/17/2013 RESULT: Lines, tubes, and devices: None. Lungs and pleura: No consolidation. No lung mass. No pleural effusion. No pneumothorax. Cardiomediastinal silhouette: Normal cardiomediastinal silhouette. Bones and soft tissues: Degenerative changes are present within the thoracic spine. IMPRESSION IMPRESSION: No acute radiographic abnormality. Senior Medical Director: [facility] Transcribe Date/Time: Sep 20 2024 9:58A Dictated by : ALEX SARKAR MD This examination was interpreted and the report reviewed and electronically signed by: ALEX SARKAR MD on Sep 20 2024 9:59AM EST [facility] Radiology Study observation (narrative) [facility] XR Chest PA and LateralOrder ed By: [facility] Provider on 09-20-2024 [facility] Knee 3 Viewson 09-01-2024 Knee 3 Views [facility] Imaging Services [address] [place] [id number] Knee 3 Views MR#: [id number] Acct: [id number] Name: MARIXASOFIA ALAN Rep #: [id number] : 1955 M 68 From: Geraldine Avila MD PCP: Dr. Fabiana Sharma MD Status: REG CLI Study: Knee 3 Views Date of Exam: 09/01/24 Exam# [id number] Ordering Dr: Fabiana Sharma MD PROCEDURE: KNEE 3 VIEWS 09/01/2024 REASON FOR EXAM: PAIN, FALL TECHNIQUE: 3 view(s) of the right knee COMPARISON: None available FINDINGS: Bones: No acute displaced fracture or dislocation. Joints: Joint spaces are preserved. Effusion: No joint effusion Soft tissues: No overlying soft tissue swelling Other: None RAD/Knee 3 Views IMPRESSION: No acute displaced fracture or dislocation. Reading Location: [facility] CC: Dr. Fabiana Sharma MD Senior Medical Director: Signed Normal [facility] Basic Metabolic Panelon 2 Anion gap [Moles/Vol] 11.3 mmol/L Normal 6.0-15.0 [facility] Comment on above: Performed By: #### C BC, BMP #### [address] Calcium [Mass/Vol] 8.4 mg/dL Low 8.6-10.3 [facility] Comment on above: Performed By: #### C BC, BMP #### [address] Chloride [Moles/Vol] 106 mmol/L Normal 98-107 [facility] Comment on above: Performed By: #### C BC, BMP #### [address] CO2 [Moles/Vol] 25.0 mmol/L Normal 21.0-31.0 [facility] Comment on above: Performed By: #### C BC, BMP #### [address] Creatinine [Mass/Vol] 0.89 mg/dL Normal 0.70-1.30 [facility] Comment on above: Performed By: #### C BC, BMP #### [place] [address] [place] Creatinine Clr Calc Pharmacy 101.55 Normal [facility] Comment on above: Result Comment: PERF ORMED BY: [place] [address] PATHOLOGIST MOWER SHARPENER GEO WELCH M.D. Performed By: #### C BC, BMP #### [facility] [address] [place] [address] [place] GFR/1.73 sq M.predicted MDRD (S/P/Bld) [Vol rate/Area] mL/min/{1.73_m2} Normal [facility] Comment on above: Performed By: #### C BC, BMP #### [address] Glucose [Mass/Vol] 155 mg/dL High 70-100 [facility] Comment on above: Result Comment: [facility] Glucose Reference Range is dependent on time and content of last meal. Glucose of more than 200 mg/dL in a nonstressed, ambulatory subject supports the diagnosis of Diabetes Mellitus. ADA recommended reference range Performed By: #### C BC, BMP #### [address] Potassium [Moles/Vol] 4.3 mmol/L Normal 3.5-5.1 [facility] Comment on above: Performed By: #### C BC, BMP #### [address] Sodium [Moles/Vol] 138 mmol/L Normal 136-145 [facility] Comment on above: Performed By: #### C BC, BMP #### [address] Urea nitrogen [Mass/Vol] 17 mg/dL Normal 7-25 [facility] Comment on above: Performed By: #### C TIANNA, BMP #### [place] [address] [place] Basophils Auto (Bld) [#/Vol] Ordered By: Bruno Cruz on 08-12-2024 Basophils (Bld) [#/Vol] Automated basophil count 0.0-0.2 [facility] Basophils/100 WBC Auto (Bld) Ordered By: Bruno Cruz on 08-12-2024 Basophils/100 WBC (Bld) Automated basophil % . [facility] Calcium [Mass/volume] in Ser um or PlasmaOrdered By: Bruno Cruz on 08-12-2024 Calcium [Mass/Vol] Calcium [Mass/volume ] in Serum or Plasma Low 8.6-10.3 [facility] Carbon dioxide, total [Moles /volume] in Serum or PlasmaOrdered By: Bruno Cruz on 08-12-2024 CO2 [Moles/Vol] Carbon dioxide, tota l [Moles/volume] in Serum or Plasma 21.0-31.0 [facility] Chloride [Moles/volume] in S stephanie or PlasmaOrdered By: Bruno Cruz on 08-12-2024 Chloride [Moles/Vol] Chloride [Moles/vol ume] in Serum or Plasma 98-107 [facility] Complete Blood Count Auto Di ffon 08-12-2024 Basophils (Bld) [#/Vol] 0.2 10*3/uL Normal 0.0-0.2 [facility] Comment on above: Result Comment: PERF ORMED BY: [place] [address] PATHOLOGIST MOWER SHARPENER GEO WELCH M.D. Performed By: #### C BC, BMP #### [address] Basophils/100 WBC (Bld) 1.1 % Normal . [facility] Comment on above: Performed By: #### C BC, BMP #### [address] Eosinophils (Bld) [#/Vol] 0.0 10*3/uL Normal 0.0-0.45 [facility] Comment on above: Performed By: #### C BC, BMP #### [address] Eosinophils/100 WBC (Bld) 0.0 % Normal . [facility] Comment on above: Performed By: #### C BC, BMP #### [address] Erythrocyte distribution width (RBC) [Ratio] 14.4 % Normal 12.0-14.8 [facility] Comment on above: Performed By: #### C BC, BMP #### [address] Hematocrit (Bld) [Volume fraction] 41.4 % Normal 38.8-50.0 [facility] Comment on above: Performed By: #### C BC, BMP #### [address] Hemoglobin (Bld) [Mass/Vol] 13.8 g/dL Normal 13.0-17.0 [facility] Comment on above: Performed By: #### C BC, BMP #### [address] Lymphocytes (Bld) [#/Vol] 2.1 10*3/uL Normal 1.00-4.8 [facility] Comment on above: Performed By: #### C BC, BMP #### [address] Lymphocytes/100 WBC (Bld) 11.4 % Normal . [facility] Comment on above: Performed By: #### C BC, BMP #### [address] MCH (RBC) [Entitic mass] 28.3 pg Normal 27.5-35.2 [facility] Comment on above: Performed By: #### C BC, BMP #### [address] MCV (RBC) [Entitic vol] 84.9 fL Normal 83.5-101 [facility] Comment on above: Performed By: #### C BC, BMP #### [address] Mean Corpuscular HGB Conc 33.4 g/dL Normal 32.5-35.6 [facility] Comment on above: Performed By: #### C BC, BMP #### [address] Monocytes (Bld) [#/Vol] 0.8 10*3/uL Normal 0.0-0.8 [facility] Comment on above: Performed By: #### C BC, BMP #### [address] [place] [address] [place] Monocytes/100 WBC (Bld) 4.5 % Normal . [facility] Comment on above: Performed By: #### C BC, BMP #### [facility] [address] Neutrophils (Bld) [#/Vol] 14.9 10*3/uL High 1.8-7.7 [facility] Comment on above: Performed By: #### C BC, BMP #### [address] Neutrophils/100 WBC (Bld) 83.0 % Normal . [facility] Comment on above: Performed By: #### C BC, BMP #### [address] NRBC% 0.1 /100{WBC} Normal 0-0.5 [facility] Comment on above: Performed By: #### C BC, BMP #### [address] Platelet mean volume (Bld) [Entitic vol] 8.1 fL Normal 6.6-10.1 [facility] Comment on above: Performed By: #### C BC, BMP #### [place] [address] [place] Platelets (Bld) [#/Vol] 266 10*3/uL Normal 150-450 [facility] Comment on above: Performed By: #### C BC, BMP #### [address] RBC (Bld) [#/Vol] 4.87 10*6/uL Normal 3.90-5.60 [facility] Comment on above: Performed By: #### C BC, BMP #### [address] WBC (Bld) [#/Vol] 18.0 10*3/uL High 4.1-10.5 [facility] Comment on above: Performed By: #### C BC, BMP #### [address] [place] [address] [facility] Creatinine [Mass/volume] in Serum or PlasmaOrdered By: Bruno Cruz on 08-12-2024 Creatinine [Mass/Vol] Creatinine [Mass/v olume] in Serum or Plasma 0.70-1.30 [facility] Eosinophils Auto (Bld) [#/Vo l]Ordered By: Bruno Cruz on 08-12-2024 Eosinophils (Bld) [#/Vol] Automated eosinophil count 0.0-0.45 [facility] Eosinophils/100 WBC Auto (Bl d)Ordered By: Bruno Cruz on 08-12-2024 Eosinophils/100 WBC (Bld) Automated eosinophil % . [facility] Erythrocyte distribution wid th Auto (RBC) [Ratio]Ordered By: Bruno Cruz on 08-12-2024 Erythrocyte distribution width (RBC) [Ratio] Erythrocyte distribution width [Ratio] by Automated count 12.0-14.8 [facility] Glucose [Mass/volume] in Ser um or PlasmaOrdered By: Bruno Cruz on 08-12-2024 Glucose [Mass/Vol] Glucose [Mass/volume ] in Serum or Plasma High 70-100 [facility] Comment on above: ADA recommended refe rence rangeRandom Glucose Reference Range is dependent on time and content of last meal. Glucose of more than 200 mg/dL in a nonstressed, ambulatory subject supports the diagnosis of Diabetes Mellitus. Hematocrit Auto (Bld) [Volum e fraction]Ordered By: Bruno Cruz on 08-12-2024 Hematocrit (Bld) [Volume fraction] Hematocrit [Volume Fraction] of Blood by Automated count 38.8-50.0 [facility] Hemoglobin [Mass/volume] in BloodOrdered By: Bruno Cruz on 08-12-2024 Hemoglobin (Bld) [Mass/Vol] Hemoglobin [Mass/volume] in Blood 13.0-17.0 [facility] Leukocytes [#/volume] correc xiomara for nucleated erythrocytes in Blood by Automated counOrdered By: Bruno Cruz on 08-12-2024 WBC corrected for nucl RBC Auto (Bld) [#/Vol] Leukocytes [#/volume] corrected for nucleated erythrocytes in Blood by Automated coun High 4.1-10.5 [facility] Lymphocytes Auto (Bld) [#/Vo l]Ordered By: Bruno Cruz on 08-12-2024 Lymphocytes (Bld) [#/Vol] Lymphocytes [#/volume] in Blood by Automated count 1.00-4.8 [facility] Lymphocytes/100 WBC Auto (Bl d)Ordered By: Bruno Cruz on 08-12-2024 Lymphocytes/100 WBC (Bld) Lymphocytes/100 leukocytes in Blood by Automated count . [facility] MCH Auto (RBC) [Entitic mass ]Ordered By: Bruno Cruz on 08-12-2024 MCH (RBC) [Entitic mass] MCH [Entitic mass] by Automated count 27.5-35.2 [facility] MCHC Auto (RBC) [Mass/Vol]Or dered By: Bruno Cruz on 08-12-2024 MCHC (RBC) [Mass/Vol] MCHC [Mass/volume] by Automated count 32.5-35.6 [facility] MCV Auto (RBC) [Entitic vol] Ordered By: Bruno Cruz on 08-12-2024 MCV (RBC) [Entitic vol] MCV [Entitic volume] by Automated count 83.5-101 [facility] Monocytes Auto (Bld) [#/Vol] Ordered By: Bruno Cruz on 08-12-2024 Monocytes (Bld) [#/Vol] Automated blood monocyte count 0.0-0.8 [facility] Monocytes/100 WBC Auto (Bld) Ordered By: Bruno Cruz on 08-12-2024 Monocytes/100 WBC (Bld) Automated monocyte % . [facility] Neutrophils Auto (Bld) [#/Vo l]Ordered By: Bruno Cruz on 08-12-2024 Neutrophils (Bld) [#/Vol] Neutrophils [#/volume] in Blood by Automated count High 1.8-7.7 [facility] Neutrophils/100 WBC Auto (Bl d)Ordered By: Bruno Cruz on 08-12-2024 Neutrophils/100 WBC (Bld) Automated neutrophil % . [facility] No Panel InformationOrdered By: Bruno Cruz on 08-12-2024 Estimated GFR (CKD-EPI) > 60.0 mL/Min [facility] Creatinine Clearance (Chem 101.55 [facility] Nucleated erythrocytes [Pres ence] in Blood by Automated countOrdered By: Bruno Cruz on 08-12-2024 Nucleated RBC Auto Ql (Bld) Nucleated erythrocytes [Presence] in Blood by Automated count 0-0.5 [facility] Platelet mean volume Auto (B ld) [Entitic vol]Ordered By: Bruno Cruz on 08-12-2024 Platelet mean volume (Bld) [Entitic vol] Platelet mean volume [Entitic volume] in Blood by Automated count 6.6-10.1 [facility] Platelets Auto (Bld) [#/Vol] Ordered By: Bruno Cruz on 08-12-2024 Platelets (Bld) [#/Vol] Platelets [#/volume] in Blood by Automated count 150-450 [facility] Potassium [Moles/volume] in Serum or PlasmaOrdered By: Bruno Cruz on 08-12-2024 Potassium [Moles/Vol] Potassium [Moles/v olume] in Serum or Plasma 3.5-5.1 [facility] RBC Auto (Bld) [#/Vol]Ordere d By: Bruno Cruz on 08-12-2024 RBC (Bld) [#/Vol] Erythrocytes [#/volu me] in Blood by Automated count 3.90-5.60 [facility] Serum or plasma anion gap de terminationOrdered By: Bruno Cruz on 08-12-2024 Anion gap [Moles/Vol] Serum or plasma an ion gap determination 6.0-15.0 [facility] Sodium [Moles/volume] in Ser um or PlasmaOrdered By: Bruno Cruz on 08-12-2024 Sodium [Moles/Vol] Sodium [Moles/volume ] in Serum or Plasma 136-145 [facility] Urea nitrogen [Mass/volume] in Serum or PlasmaOrdered By: Bruno Cruz on 08-12-2024 Urea nitrogen [Mass/Vol] Urea nitrogen [Mass/volume] in Serum or Plasma 7-25 [facility] WBC Auto (Bld) [#/Vol]Ordere d By: Bruno Cruz on 08-12-2024 WBC (Bld) [#/Vol] Leukocytes [#/volume ] in Blood by Automated count High 4.1-10.5 [facility] X-ray reportOrdered By: Elida Sharp on 08-12-2024 Study report [facility] Main [address] [address] XRay Report Signed Patient: Sofia Calvin MR#: [id number] : 1955 Acct:[id number] Age/Sex: 68 / M ADM Date: 5 Loc: Room: [address] [place] [address] Type: ADM IN Attending Dr: Bruno Cruz MD Copies to: Bruno Cruz MD~ Ordering Provider: Bruno Cruz MD Date of Service: 08/12/24 XR/XR lumbar spine 2-3V*: Lumbar fusion LUMBAR SPINE - 2 views COMPARISON: 04/20/2024 and 08/11/2024 (intraoperative) CLINICAL DATA: Follow-up after lumbar fusion. Weightbearing AP and lateral views were obtained. There is interval revision ofhardware. There are now posterior rods, pedicle screws and laminectomy defects extending from L2 through L4. Both pedicle screws have been removed at L5 however there are still portions of the S1 pedicle screws bilaterally. There are interbody fusion devices from L2 - 3 down. The hardware appears intact. There are no developing fractures. There is still slight retrolisthesis of L3 on L4. Endplate spurring is noted. There is lower lumbar facet hypertrophy. The SI joints are intact. There are vertical posterior midline skin jaqueline alejandro small amount of underlying subcutaneous air. XR/XR lumbar spine 2-3V* IMPRESSION: MULTILEVEL POSTOPERATIVE AND MILD DEGENERATIVE CHANGES, DESCRIBED. Impression dictated by: Cathy Sharp M.D.08/12/2024 10:02 AM Dictation Location: [place] [address] Transcribed By: [facility] 08/12/24 1002 Dictated By: Cathy Sharp MD 08/12/24 0959 Signed By: 08/12/24 1002 [facility] Work Phone: XR lumbar spine 2-3V*on 07-25 XR lumbar spine 2-3V* [facility] Main [address] [address] XRay Report Signed Patient: Sofia Calvin MR#: [id number] 10 : 1955 Acct:[id number] Age/Sex: 68 / M ADM Date: 08/11/24 Loc: 4N Room: 6K5201-4 Type: ADM IN Attending Dr: Bruno Cruz MD Copies to: Bruno Cruz MD Ordering Provider: Bruno Cruz MD Date of Service: 08/12/24 XR/XR lumbar spine 2-3V*: Lumbar fusion LUMBAR SPINE - 2 views COMPARISON: 04/20/2024 and 08/11/2024 (intraoperative) CLINICAL DATA: Follow-up after lumbar fusion. Weightbearing AP and lateral views were obtained. There is interval revision of hardware. There are now posterior rods, pedicle screws and laminectomy defects extending from L2 through L4. Both pedicle screws have been removed at L5 however there are still portions of the S1 pedicle screws bilaterally. There are interbody fusion devices from L2 - 3 down. The hardware appears intact. There are no developing fractures. There is still slight retrolisthesis of L3 on L4. Endplate spurring is noted. There is lower lumbar facet hypertrophy. The SI joints are intact. There are vertical posterior midline skin jaqueline and a small amount of underlying subcutaneous air. XR/XR lumbar spine 2-3V* IMPRESSION: MULTILEVEL POSTOPERATIVE AND MILD DEGENERATIVE CHANGES, DESCRIBED. Impression dictated by: Cathy Sharp M.D.08/12/2024 10:02 AM Dictation Location: [place] [address] Transcribed By: [facility] 08/12/24 1002 Dictated By: Cathy Sharp MD 08/12/24 0959 Signed By: 08/12/24 1002 Normal [facility] X-ray reportOrdered By: Bennett Obrien on 08-11-2024 Study report [facility] [place] [address] XRay Report Signed Patient: Sofia Calvin MR#: [id number] : 1955 Acct:[id number] Age/Sex: 68 / M ADM Date: 5 Loc: 4N Room: 4M2914-5 Type: ADM IN Attending Dr: Bruno Cruz MD Copies to: Bruno Cruz MD~ Ordering Provider: Bruno Cruz MD Date of Service: 08/11/24 XR/XR lumbar spine 2-3V*: . Intraoperative study. Reason for exam: PLIF L2-L3 and L3-L4. Removal hardware L5-S1. Findings: 194 images were obtained intraoperatively. Postoperative changes are seen. Cumulative Air Kerma in mGy: 4.09 mGy XR/XR lumbar spine 2-3V* Impression: Intraoperative study. Impression dictated by: Christian Obrien Jr., D.O.08/11/2024 3:38 PM Dictation Location: [facility]IO-PC-19 Transcribed By: PÉREZ 08/11/241537 Dictated By: Christian Obrien Jr DO 08/11/241536 Signed By: 08/11/24 1538 [facility] XR lumbar spine 2-3V*on 07-24 XR lumbar spine 2-3V* [facility] [place] [address] XRay Report Signed Patient: Sofia Calvin MR#: [id number] 10 : 1955 Acct:[id number] Age/Sex: 68 / M ADM Date: 08/11/24 Loc: 4N Room: [address] [place] [address] Type: ADM IN Attending Dr: Bruno Cruz MD Copies to: Bruno Cruz MD Ordering Provider: Bruno Cruz MD Date of Service: 08/11/24 XR/XR lumbar spine 2-3V*: . Intraoperative study. Reason for exam: PLIF L2-L3 and L3-L4. Removal hardware L5-S1. Findings: 194 images were obtained intraoperatively. Postoperative changes are seen. Cumulative Air Kerma in mGy: 4.09 mGy XR/XR lumbar spine 2-3V* Impression: Intraoperative study. Impression dictated by: Christian Obrien Jr., D.O.08/11/2024 3:38 PM Dictation Location: RADIO-PC-19 Transcribed By: PÉREZ 08/11/241537 Dictated By: Christian Obrien Jr, DO 03/19/25 1537 Signed By: 08/11/24 1538 Normal [facility] Cotinine [Mass/volume] in Se rum or PlasmaOrdered By: Bruno Cruz on 07-28-2024 Cotinine [Mass/Vol] Cotinine [Mass/volum e] in Serum or Plasma . [facility] Comment on above: This test was develo ped and its performance characteristicsdetermined by [facility]. It has not been cleared orapproved by the Food and Drug Administration.Cotinine levels greater than 20.0 are consistent with theuse of tobacco or tobacco cessation products.Performed at: - [facility] [id number] Director: Parker Ramirez MD, Phone: [phone] Nicotine [Mass/volume] in Se rum or PlasmaOrdered By: Bruno Cruz on 07-28-2024 Nicotine [Mass/Vol] Nicotine [Mass/volum e] in Serum or Plasma . [facility] Comment on above: This test was develo ped and its performance characteristicsdetermined by [facility]. It has not been cleared orapproved by the Food and Drug Administration.Nicotine levels greater than 2.0 are consistent with theuse of tobacco or tobacco cessation products. Nicotine/Cotinine Bloodon Cotinine, Blood 2.5 ng/mL Normal . [facility] Comment on above: Result Comment: This test was developed and its performance characteristics determined by [facility]. It has not been cleared or approved by the Food and Drug Administration. Cotinine levels greater than 20.0 are consistent with the use of tobacco or tobacco cessation products. Performed at: [facility] [id number] Farm Owner Operator: Parker Ramirez MD, Phone: [phone] PERFORMED BY: [address] [place] [address] PATHOLOGIST MOWER SHARPENER GEO WELCH M.D. Performed By: #### N ICOTINE #### [facility] , Nicotine, Blood <1.0 Normal . [facility] Comment on above: Result Comment: This test was developed and its performance characteristics determined by [facility]. It has not been cleared or approved by the Food and Drug Administration. Nicotine levels greater than 2.0 are consistent with the use of tobacco or tobacco cessation products. Performed By: #### N ICOTINE #### [facility] , Basic Metabolic Panelon 06-27 Anion gap [Moles/Vol] 11.5 mmol/L Normal 6.0-15.0 [facility] Comment on above: Performed By: #### C BC, BMP #### [address] Calcium [Mass/Vol] 9.1 mg/dL Normal 8.6-10.3 [facility] Comment on above: Result Comment: PERF ORMED BY: [place] [address] PATHOLOGIST MOWER SHARPENER GEO WELCH M.D. Performed By: #### C BC, BMP #### [address] Chloride [Moles/Vol] 106 mmol/L Normal 98-107 [facility] Comment on above: Performed By: #### C BC, BMP #### [address] CO2 [Moles/Vol] 26.6 mmol/L Normal 21.0-31.0 [facility] Comment on above: Performed By: #### C BC, BMP #### [address] Creatinine [Mass/Vol] 0.85 mg/dL Normal 0.70-1.30 [facility] Comment on above: Performed By: #### C BC, BMP #### [place] [address] [place] GFR/1.73 sq M.predicted MDRD (S/P/Bld) [Vol rate/Area] mL/min/{1.73_m2} Normal [facility] Comment on above: Performed By: #### C BC, BMP #### [place] [address] [place] Glucose [Mass/Vol] 90 mg/dL Normal 70-100 [facility] Comment on above: Result Comment: [place] Glucose Reference Range is dependent on time and content of last meal. Glucose of more than 200 mg/dL in a nonstressed, ambulatory subject supports the diagnosis of Diabetes Mellitus. ADA recommended reference range Performed By: #### C BC, BMP #### [facility] [address] [id number] [place] Potassium [Moles/Vol] 4.1 mmol/L Normal 3.5-5.1 [facility] Comment on above: Performed By: #### C BC, BMP #### [facility] [address] [phone] [place] Sodium [Moles/Vol] 140 mmol/L Normal 136-145 [facility] Comment on above: Performed By: #### C BC, BMP #### [facility] [address] [phone] [facility] Urea nitrogen [Mass/Vol] 15 mg/dL Normal 7-25 [facility] Comment on above: Performed By: #### C BC, BMP #### [facility] [address] [phone] [place] Basophils Auto (Bld) [#/Vol] Ordered By: Bruno Cruz on 07-21-2024 Basophils (Bld) [#/Vol] Automated basophil count 0.0-0.2 [facility] Basophils/100 WBC Auto (Bld) Ordered By: Bruno Cruz on 07-21-2024 Basophils/100 WBC (Bld) Automated basophil % . [facility] Calcium [Mass/volume] in Ser um or PlasmaOrdered By: Bruno Cruz on 07-21-2024 Calcium [Mass/Vol] Calcium [Mass/volume ] in Serum or Plasma 8.6-10.3 [facility] Carbon dioxide, total [Moles /volume] in Serum or PlasmaOrdered By: Bruno Cruz on 07-21-2024 CO2 [Moles/Vol] Carbon dioxide, tota l [Moles/volume] in Serum or Plasma 21.0-31.0 [facility] Chloride [Moles/volume] in S stephanie or PlasmaOrdered By: Bruno Cruz on 07-21-2024 Chloride [Moles/Vol] Chloride [Moles/vol ume] in Serum or Plasma 98-107 [facility] Complete Blood Count Auto Di ffon 07-21-2024 Basophils (Bld) [#/Vol] 0.1 10*3/uL Normal 0.0-0.2 [facility] Comment on above: Result Comment: PERF ORMED BY: [place] [address] PATHOLOGIST MOWER SHARPENER GEO WELCH M.D. Performed By: #### C BC, BMP #### [address] Basophils/100 WBC (Bld) 0.9 % Normal . [facility] Comment on above: Performed By: #### C BC, BMP #### [address] Eosinophils (Bld) [#/Vol] 0.2 10*3/uL Normal 0.0-0.45 [facility] Comment on above: Performed By: #### C BC, BMP #### [address] Eosinophils/100 WBC (Bld) 1.4 % Normal . [facility] Comment on above: Performed By: #### C BC, BMP #### [address] Erythrocyte distribution width (RBC) [Ratio] 14.2 % Normal 12.0-14.8 [facility] Comment on above: Performed By: #### C BC, BMP #### [address] Hematocrit (Bld) [Volume fraction] 44.4 % Normal 38.8-50.0 [facility] Comment on above: Performed By: #### C BC, BMP #### [address] Hemoglobin (Bld) [Mass/Vol] 15.3 g/dL Normal 13.0-17.0 [facility] Comment on above: Performed By: #### C BC, BMP #### [facility] [address] [place] [address] [place] Lymphocytes (Bld) [#/Vol] 3.7 10*3/uL Normal 1.00-4.8 [facility] Comment on above: Performed By: #### C BC, BMP #### [facility] [address] [phone] [place] Lymphocytes/100 WBC (Bld) 27.5 % Normal . [facility] Comment on above: Performed By: #### C BC, BMP #### [address] MCH (RBC) [Entitic mass] 29.4 pg Normal 27.5-35.2 [facility] Comment on above: Performed By: #### C BC, BMP #### [address] MCV (RBC) [Entitic vol] 85.6 fL Normal 83.5-101 [facility] Comment on above: Performed By: #### C BC, BMP #### [address] Mean Corpuscular HGB Conc 34.3 g/dL Normal 32.5-35.6 [facility] Comment on above: Performed By: #### C BC, BMP #### [place] [address] [place] Monocytes (Bld) [#/Vol] 1.0 10*3/uL High 0.0-0.8 [facility] Comment on above: Performed By: #### C BC, BMP #### [place] [phone] [place] Monocytes/100 WBC (Bld) 7.8 % Normal . [facility] Comment on above: Performed By: #### C BC, BMP #### [place] [address] [place] Neutrophils (Bld) [#/Vol] 8.3 10*3/uL High 1.8-7.7 [facility] Comment on above: Performed By: #### C BC, BMP #### [facility] [address] Neutrophils/100 WBC (Bld) 62.4 % Normal . [facility] Comment on above: Performed By: #### C BC, BMP #### [facility] [address] [phone] [facility] NRBC% 0.2 /100{WBC} Normal 0-0.5 [facility] Comment on above: Performed By: #### C BC, BMP #### [facility] [address] [phone] [facility] Platelet mean volume (Bld) [Entitic vol] 7.8 fL Normal 6.6-10.1 [facility] Comment on above: Performed By: #### C BC, BMP #### [facility] [address] [place] [address] [place] Platelets (Bld) [#/Vol] 282 10*3/uL Normal 150-450 [facility] Comment on above: Performed By: #### C BC, BMP #### [facility] [address] [place] [address] [place] RBC (Bld) [#/Vol] 5.19 10*6/uL Normal 3.90-5.60 [facility] Comment on above: Performed By: #### C BC, BMP #### [place] [phone] [place] WBC (Bld) [#/Vol] 13.4 10*3/uL High 4.1-10.5 [facility] Comment on above: Performed By: #### C BC, BMP #### [place] [phone] [place] Creatinine [Mass/volume] in Serum or PlasmaOrdered By: Bruno Cruz on 07-21-2024 Creatinine [Mass/Vol] Creatinine [Mass/v olume] in Serum or Plasma 0.70-1.30 [facility] ECG 12 lead ECGon 07-21-2024 ECG 12 lead ECG [facility] [place] [address] [place] [address] Electrocardiograph Report Signed Patient: Sofia Calvin MR#: [id number] 10 : 1955 Acct:[id number] Age/Sex: 68 / M ADM Date: 07/21/24 Loc: PS Room: Type: [facility] Attending Dr: Bruno Cruz MD Ordering Provider: Bruno Cruz MD Date of Service: 07/21/24 ECG/ECG 12 lead ECG: pre-op Copies to: Test Reason : Blood Pressure : */* mmHG Vent. Rate : 60 BPM Atrial Rate : 60 BPM P-R Int : 166 ms QRS Dur : 96 ms QT Int : 418 ms P-R-T Axes : 23 -7 5 degrees QTcB Int : 418 ms Normal sinus rhythm Normal ECG Confirmed by Yessy Travis ([id number]) on 07/21/2024 8:27:43 PM Referred By: Electronically Signed By: Yessy Travis Transcribed By: MUS Signed By Yessy Travis MD 2026 Normal [facility] Eosinophils Auto (Bld) [#/Vo l]Ordered By: Bruno Cruz on 07-21-2024 Eosinophils (Bld) [#/Vol] Automated eosinophil count 0.0-0.45 [facility] Eosinophils/100 WBC Auto (Bl d)Ordered By: Bruno Cruz on 07-21-2024 Eosinophils/100 WBC (Bld) Automated eosinophil % . [facility] Erythrocyte distribution wid th Auto (RBC) [Ratio]Ordered By: Bruno Cruz on 07-21-2024 Erythrocyte distribution width (RBC) [Ratio] Erythrocyte distribution width [Ratio] by Automated count 12.0-14.8 [facility] Glucose [Mass/volume] in Ser um or PlasmaOrdered By: Bruno Cruz on 07-21-2024 Glucose [Mass/Vol] Glucose [Mass/volume ] in Serum or Plasma 70-100 [facility] Comment on above: ADA recommended refe rence rangeRandom Glucose Reference Range is dependent on time and content of last meal. Glucose of more than 200 mg/dL in a nonstressed, ambulatory subject supports the diagnosis of Diabetes Mellitus. Hematocrit Auto (Bld) [Volum e fraction]Ordered By: Bruno Cruz on 07-21-2024 Hematocrit (Bld) [Volume fraction] Hematocrit [Volume Fraction] of Blood by Automated count 38.8-50.0 [facility] Hemoglobin [Mass/volume] in BloodOrdered By: Bruno Cruz on 07-21-2024 Hemoglobin (Bld) [Mass/Vol] Hemoglobin [Mass/volume] in Blood 13.0-17.0 [facility] Leukocytes [#/volume] correc xiomara for nucleated erythrocytes in Blood by Automated counOrdered By: Bruno Cruz on 07-21-2024 WBC corrected for nucl RBC Auto (Bld) [#/Vol] Leukocytes [#/volume] corrected for nucleated erythrocytes in Blood by Automated coun High 4.1-10.5 [facility] Lymphocytes Auto (Bld) [#/Vo l]Ordered By: Bruno Cruz on 07-21-2024 Lymphocytes (Bld) [#/Vol] Lymphocytes [#/volume] in Blood by Automated count 1.00-4.8 [facility] Lymphocytes/100 WBC Auto (Bl d)Ordered By: Bruno Cruz on 07-21-2024 Lymphocytes/100 WBC (Bld) Lymphocytes/100 leukocytes in Blood by Automated count . [facility] MCH Auto (RBC) [Entitic mass ]Ordered By: Bruno Cruz on 07-21-2024 MCH (RBC) [Entitic mass] MCH [Entitic mass] by Automated count 27.5-35.2 [facility] MCHC Auto (RBC) [Mass/Vol]Or dered By: Bruno Cruz on 07-21-2024 MCHC (RBC) [Mass/Vol] MCHC [Mass/volume] by Automated count 32.5-35.6 [facility] MCV Auto (RBC) [Entitic vol] Ordered By: Bruno Cruz on 07-21-2024 MCV (RBC) [Entitic vol] MCV [Entitic volume] by Automated count 83.5-101 [facility] Monocytes Auto (Bld) [#/Vol] Ordered By: Bruno Cruz on 07-21-2024 Monocytes (Bld) [#/Vol] Automated blood monocyte count High 0.0-0.8 [facility] Monocytes/100 WBC Auto (Bld) Ordered By: Bruno rCuz on 07-21-2024 Monocytes/100 WBC (Bld) Automated monocyte % . [facility] Neutrophils Auto (Bld) [#/Vo l]Ordered By: Bruno Cruz on 07-21-2024 Neutrophils (Bld) [#/Vol] Neutrophils [#/volume] in Blood by Automated count High 1.8-7.7 [facility] Neutrophils/100 WBC Auto (Bl d)Ordered By: Bruno Cruz on 07-21-2024 Neutrophils/100 WBC (Bld) Automated neutrophil % . [facility] No Panel InformationOrdered By: Bruno Cruz on 07-21-2024 Estimated GFR (CKD-EPI) > 60.0 mL/Min [facility] Creatinine Clearance (Chem N/A [facility] Nucleated erythrocytes [Pres ence] in Blood by Automated countOrdered By: Bruno Cruz on 07-21-2024 Nucleated RBC Auto Ql (Bld) Nucleated erythrocytes [Presence] in Blood by Automated count 0-0.5 [facility] PST Type and Screenon 2024 ABO and Rh group Nom (Bld) Blood group A Rh(D) positive Normal [facility] Comment on above: Order Comment: Date of Surgery: [id number] Result Comment: PERF ORMED BY: [facility] [address] [place] [address] PATHOLOGIST MOWER SHARPENER GEO WELCH M.D. Platelet mean volume Auto (B ld) [Entitic vol]Ordered By: Bruno Cruz on 07-21-2024 Platelet mean volume (Bld) [Entitic vol] Platelet mean volume [Entitic volume] in Blood by Automated count 6.6-10.1 [facility] Platelets Auto (Bld) [#/Vol] Ordered By: Bruno Cruz on 07-21-2024 Platelets (Bld) [#/Vol] Platelets [#/volume] in Blood by Automated count 150-450 [facility] Potassium [Moles/volume] in Serum or PlasmaOrdered By: Bruno Cruz on 07-21-2024 Potassium [Moles/Vol] Potassium [Moles/v olume] in Serum or Plasma 3.5-5.1 [facility] RBC Auto (Bld) [#/Vol]Ordere d By: Bruno Cruz on 07-21-2024 RBC (Bld) [#/Vol] Erythrocytes [#/volu me] in Blood by Automated count 3.90-5.60 [facility] Serum or plasma anion gap de terminationOrdered By: Bruno Cruz on 07-21-2024 Anion gap [Moles/Vol] Serum or plasma an ion gap determination 6.0-15.0 [facility] Sodium [Moles/volume] in Ser um or PlasmaOrdered By: Bruno Cruz on 07-21-2024 Sodium [Moles/Vol] Sodium [Moles/volume ] in Serum or Plasma 136-145 [facility] Urea nitrogen [Mass/volume] in Serum or PlasmaOrdered By: Bruno Cruz on 07-21-2024 Urea nitrogen [Mass/Vol] Urea nitrogen [Mass/volume] in Serum or Plasma 7-25 [facility] WBC Auto (Bld) [#/Vol]Ordere d By: Bruno Cruz on 07-21-2024 WBC (Bld) [#/Vol] Leukocytes [#/volume ] in Blood by Automated count High 4.1-10.5 [facility] Thyroidon 06-19-2024 Thyroid [facility] Imaging Services [address] [place] [id number] Thyroid MR#: [id number] Acct: [id number] Name: SOFIA CALVIN Rep #: [id number] : 1955 M 68 From: Noble Freeman MD PCP: Dr. Fabiana Sharma MD Status: [facility] Study: Thyroid Date of Exam: 06/19/24 Exam# [id number] Ordering Dr: Fabiana Sharma MD [id number] EXAM: US SOFT TISSUES HEAD AND NECK, THYROID CLINICAL INDICATION: THYROMEGALY TECHNIQUE: Ramsay scale and color doppler imaging was performed of the thyroid gland. COMPARISON: No relevant prior studies available. FINDINGS: LEFT THYROID LOBE: Left thyroid lobe measures 4.7 x 1.4 x 2.7 cm. Tiny millimeters nodule noted. This nodule is mixed cystic and solid, hyperechoic or isoechoic, korcx-ijjy-yfdv, smoothly marginated and contains no echogenic foci. TI-RADS points: 2. TI-RADS category: TR2. This nodule is not suspicious and no FNA or follow-up is necessary. RIGHT THYROID LOBE: Right thyroid lobe measures 5.2 x 1.3 x 2.5 cm. 5 mm colloid cyst noted. There is also a 3 mm hypoechoic nodule appearing wider than tall, well-defined and without microcalcification. TI-RADS points: 4. TI-RADS category: TR4. This nodule is moderately suspicious but no FNA or follow-up is necessary given the small size of this nodule. ISTHMUS: Isthmus measures 2.3 mm in AP dimension. No thyroid nodules are present. US/Thyroid IMPRESSION: Thyromegaly with nodules noted bilaterally as described above. Electronically Signed: Noble Freeman MD at 13:38 EST Reading Location ID and State: [facility] / [place] Tel , Service support , CC: Dr. Fabiana Sharma MD Senior Medical Director: Signed Normal [facility] Thyroglobulin w/Anti-TG ABon 06-15-2024 Anti-TG AB < 1.0 Normal 0.0-0.9 [facility] Comment on above: Order Comment: Order Date: 06/10/24 Order Info: [id number] - TSIMM Result Comment: Thyr oglobulin Antibody measured by Mikaela Joao Methodology It should be noted that the presence of thyroglobulin antibodies may not be pathogenic nor diagnostic, especially at very low levels. The assay funeral service manager has found that four percent of individuals without evidence of thyroid disease or autoimmunity will have positive TgAb levels up to 4 IU/mL. Performed By: #### L 3300.6900, L3300.6820, M100.2200, L400.0001 #### [facility] [place], [address] THYROGLOB QUANT 8.2 ng/mL Normal 1.4-29.2 [facility] Comment on above: Order Comment: Order Date: 06/10/24 Order Info: [id number] - TSIMM Result Comment: Acco rding to the National Academy of Clinical Biochemistry, the reference interval for Thyroglobulin (TG) should be related to euthyroid patients and not for patients who underwent thyroidectomy. TG reference intervals for these patients depend on the residual mass of the thyroid tissue left after surgery. Establishing a post-operative baseline is recommended. The assay limit of quantitation is 0.1 ng/mL Thyroglobulin measured by Mikaela [place] Immunometric Assay Performed By: #### L 3300.6900, L3300.6820, M100.2200, L400.0001 #### [facility] [address] [place], [place], [id number] Thyroid Peroxidase ABon 05-27 THYR PEROX AB 14 IU/mL Normal 0-34 [facility] Comment on above: Order Comment: Order Date: 06/10/24 Order Info: [id number] - TSIMM Result Comment: Perf ormed at: - [facility] [address] [id number] Farm Owner Operator: Parker Ramirez MD, Phone: [phone] Performed at: - [facility] [address] [id number] Farm Owner Operator: César Gutierrez PhD, Phone: [phone] Performed By: #### L 3300.6900, L3300.6820, M100.2200, L400.0001 #### [facility] [address] [place], [address] Thyroid Stim Immunoglobon THY STIM IMMUNO <0.10 Normal 0.00-0.55 [facility] Comment on above: Order Comment: Order Date: 06/10/24 Order Info: [id number] - TSIMM Performed By: #### L 3400.4700, L506.0400 #### [facility] [address] [place], [place], [id number] Urine Cultureon 06-12-2024 [facility] PLEASE ADD CULTURE T O URINE SAMPLE COLLECTED 06/10/24 Culture exhibits no growth. Normal [facility] Comment on above: Performed By: #### L 3300.6900, L3300.6820, M100.2200, L400.0001 #### [facility] [address] [place], [address] Absolute neutrophil countOrd ered By: Fabiana Sharma on 06-10-2024 Neutrophils (Bld) [#/Vol] 8.1 10*3/uL High 2.0-7.7 [facility] Albumin to globulin ratioOrd ered By: Fabiana Sharma on 06-10-2024 Albumin/Globulin [Mass ratio] 0.9 {ratio} 0.9-2.4 [facility] Bacteria LM.HPF (Urine sed) [#/Area]Ordered By: Fabiana Sharma on 06-10-2024 Urine Bacteria RARE /hpf None Seen [facility] Basophil percentageOrdered B y: Fabiana Sharam on 06-10-2024 Basophils/100 WBC (Bld) 0.7 % 0-1 [facility] Bilirubin Test strip Ql (U)O rdered By: Fabiana Sharma on 06-10-2024 Bilirubin Ql (U) Negative Negative [facility] Bilirubin, totalOrdered By: Fabiana Sharma on 06-10-2024 Bilirubin [Mass/Vol] 0.30 mg/dL 0.20-1.00 [facility] Comment on above: For patients on eltr ombopag therapy, use of Dimension Sabine TBIL is not recommended. Blood urea nitrogen (BUN)/cr eatinine ratioOrdered By: Fabiana Sharma on 06-10-2024 Urea nitrogen/Creatinine [Mass ratio] 20.7 mg/mg High 10-20 [facility] CBC W/Diff, Automatedon 05-26 Absolute Lymph 4.28 X10 3/uL Normal 0.83-4.51 [facility] Comment on above: Order Comment: Order Date: 06/10/24 Order Info: [id number] - TSIMM Performed By: #### L 3400.4700, L506.0400 #### [facility] [address] [place], [place], [id number] Absolute Neut 8.1 X10 3/uL High 2.0-7.7 [facility] Comment on above: Order Comment: Order Date: 06/10/24 Order Info: [id number] - TSIMM Performed By: #### L 3400.4700, L506.0400 #### [facility] [address] [place], [address] Basophils/100 WBC (Bld) 0.7 % Normal 0-1 [facility] Comment on above: Order Comment: Order Date: 06/10/24 Order Info: [id number] - TSIMM Performed By: #### L 3400.4700, L506.0400 #### [facility] [address] [place], [address] Eosinophils/100 WBC (Bld) 1.7 % Normal 0-5 [facility] Comment on above: Order Comment: Order Date: 06/10/24 Order Info: [id number] - TSIMM Performed By: #### L 3400.4700, L506.0400 #### [facility] [address] [place], [address] Erythrocyte distribution width (RBC) [Ratio] 13.2 % Normal 11.6-14.6 [facility] Comment on above: Order Comment: Order Date: 06/10/24 Order Info: [id number] - TSIMM Performed By: #### L 3400.4700, L506.0400 #### [facility] [address] [place], [address] Hematocrit (Bld) [Volume fraction] 45.1 % Normal 40-54 [facility] Comment on above: Order Comment: Order Date: 06/10/24 Order Info: [id number] - TSIMM Performed By: #### L 3400.4700, L506.0400 #### [facility] [address] [place], [address] Hemoglobin (Bld) [Mass/Vol] 14.4 g/dL Normal 13.0-16.5 [facility] Comment on above: Order Comment: Order Date: 06/10/24 Order Info: [id number] - TSIMM Performed By: #### L 3400.4700, L506.0400 #### [facility] [address] [place], [address] IG% 0.400 Normal 0.0-0.9 [facility] Comment on above: Order Comment: Order Date: 06/10/24 Order Info: [id number] - TSIMM Result Comment: IG% - Immature Granulocytes (promyelocytes, myelocytes and metamyelocytes) > 1% indicates that a LEFT SHIFT is Present. Performed By: #### L 3400.4700, L506.0400 #### [facility] [address] [place], [address] Lymphocytes/100 WBC (Bld) 31.3 % Normal 19-41 [facility] Comment on above: Order Comment: Order Date: 06/10/24 Order Info: [id number] - TSIMM Performed By: #### L 3400.4700, L506.0400 #### [facility] [address] [place], [address] MCH (RBC) [Entitic mass] 28.3 pg Normal 27.0-32.0 [facility] Comment on above: Order Comment: Order Date: 06/10/24 Order Info: [id number] - TSIMM Performed By: #### L 3400.4700, L506.0400 #### [facility] [address] [place], [address] MCHC (RBC) [Mass/Vol] 31.9 g/dL Low 32-36 [facility] Comment on above: Order Comment: Order Date: 06/10/24 Order Info: [id number] - TSIMM Performed By: #### L 3400.4700, L506.0400 #### [facility] [address] [place], [address] MCV (RBC) [Entitic vol] 88.6 fL Normal 80-94 [facility] Comment on above: Order Comment: Order Date: 06/10/24 Order Info: [id number] - TSIMM Performed By: #### L 3400.4700, L506.0400 #### [facility] [address] [place], [address] Monocytes/100 WBC (Bld) 6.5 % Normal 0-10 [facility] Comment on above: Order Comment: Order Date: 06/10/24 Order Info: [id number] - TSIMM Performed By: #### L 3400.4700, L506.0400 #### [facility] [address] [place], [address] Neutrophils/100 WBC (Bld) 59.4 % Normal 47-70 [facility] Comment on above: Order Comment: Order Date: 06/10/24 Order Info: [id number] - TSIMM Performed By: #### L 3400.4700, L506.0400 #### [facility] [address] [place], [address] Nucleated RBC (Bld) [#/Vol] 0 10*3/uL Normal 0-5 [facility] Comment on above: Order Comment: Order Date: 06/10/24 Order Info: [id number] - TSIMM Performed By: #### L 3400.4700, L506.0400 #### [facility] [address] [place], [address] Platelet mean volume (Bld) [Entitic vol] 9.9 fL Normal 6.2-12.0 [facility] Comment on above: Order Comment: Order Date: 06/10/24 Order Info: [id number] - TSIMM Performed By: #### L 3400.4700, L506.0400 #### [facility] [address] [place], [address] Platelets (Bld) [#/Vol] 372 10*3/uL Normal 150-450 [facility] Comment on above: Order Comment: Order Date: 06/10/24 Order Info: [id number] - TSIMM Performed By: #### L 3400.4700, L506.0400 #### [facility] [address] [place], [address] RBC (Bld) [#/Vol] 5.09 10*6/uL Normal 4.6-6.2 [facility] Comment on above: Order Comment: Order Date: 06/10/24 Order Info: [id number] - TSIMM Performed By: #### L 3400.4700, L506.0400 #### [facility] [address] [place], [address] RDW SD 43.1 fl Normal 35.1-43.9 [facility] Comment on above: Order Comment: Order Date: 06/10/24 Order Info: [id number] - TSIMM Performed By: #### L 3400.4700, L506.0400 #### [facility] [address] [place], [address] WBC (Bld) [#/Vol] 13.7 10*3/uL High 4.4-11.0 [facility] Comment on above: Order Comment: Order Date: 06/10/24 Order Info: [id number] - TSIMM Performed By: #### L 3400.4700, L506.0400 #### [facility] [address] [place], [address] Carbon dioxide measurementOr dered By: Fabiana Sharma on 06-10-2024 CO2 [Moles/Vol] 28.0 mmol/L 21.0-32.0 [facility] Chloride measurementOrdered By: Fabiana Sharma on 06-10-2024 Chloride [Moles/Vol] 108 mmol/L High 98-107 [facility] Comprehensive Metabolic Prof ilon 06-10-2024 Albumin [Mass/Vol] 3.5 g/dL Normal 3.2-5.0 [facility] Comment on above: Order Comment: Order Date: 06/10/24 Order Info: [id number] - TSIMM Performed By: #### L 3400.4700, L506.0400 #### [facility] [address] [place], [address] Albumin/Globulin [Mass ratio] 0.9 {ratio} Normal 0.9-2.4 [facility] Comment on above: Order Comment: Order Date: 06/10/24 Order Info: [id number] - TSIMM Performed By: #### L 3400.4700, L506.0400 #### [facility] [address] [place], [address] ALK P 66 U/L Normal 45-117 [facility] Comment on above: Order Comment: Order Date: 06/10/24 Order Info: [id number] - TSIMM Performed By: #### L 3400.4700, L506.0400 #### [facility] [address] [place], [address] ALT [Catalytic activity/Vol] 22 U/L Normal 16-61 [facility] Comment on above: Order Comment: Order Date: 06/10/24 Order Info: [id number] - TSIMM Performed By: #### L 3400.4700, L506.0400 #### [facility] [address] [place], [address] AST [Catalytic activity/Vol] 15 U/L Normal 15-37 [facility] Comment on above: Order Comment: Order Date: 06/10/24 Order Info: [id number] - TSIMM Performed By: #### L 3400.4700, L506.0400 #### [facility] [address] [place], [address] Bilirubin [Mass/Vol] 0.30 mg/dL Normal 0.20-1.00 [facility] Comment on above: Order Comment: Order Date: 06/10/24 Order Info: [id number] - TSIMM Result Comment: For patients on eltrombopag therapy, use of Dimension Sabine TBIL is not recommended. Performed By: #### L 3400.4700, L506.0400 #### [facility] [address] [place], [address] BUN/CRE 20.7 RATIO High 10-20 [facility] Comment on above: Order Comment: Order Date: 06/10/24 Order Info: [id number] - TSIMM Performed By: #### L 3400.4700, L506.0400 #### [facility] [address] [place], [address] CA,Total 8.8 mg/dL Normal 8.5-10.1 [facility] Comment on above: Order Comment: Order Date: 06/10/24 Order Info: [id number] - TSIMM Performed By: #### L 3400.4700, L506.0400 #### [facility] [address] [place], [address] Chloride [Moles/Vol] 108 mmol/L High 98-107 [facility] Comment on above: Order Comment: Order Date: 06/10/24 Order Info: [id number] - TSIMM Performed By: #### L 3400.4700, L506.0400 #### [facility] [address] [place], [address] CO2 [Moles/Vol] 28.0 mmol/L Normal 21.0-32.0 [facility] Comment on above: Order Comment: Order Date: 06/10/24 Order Info: [id number] - TSIMM Performed By: #### L 3400.4700, L506.0400 #### [facility] [address] [place], [address] Creatinine [Mass/Vol] 0.92 mg/dL Normal 0.70-1.30 [facility] Comment on above: Order Comment: Order Date: 06/10/24 Order Info: [id number] - TSIMM Result Comment: The validity of the calculated GFR GFRAA in patients over 70 years has not been determined. Clinical correlation is essential. Performed By: #### L 3400.4700, L506.0400 #### [facility] [address] [place], [address] EST GFR - AA 105 mL/min Normal >60 [facility] Comment on above: Order Comment: Order Date: 06/10/24 Order Info: [id number] - TSIMM Result Comment: Afri can Malaysian GFR Calc Performed By: #### L 3400.4700, L506.0400 #### [facility] [address] [place], [address] GAP 5 Normal 5-15 [facility] Comment on above: Order Comment: Order Date: 06/10/24 Order Info: [id number] - TSIMM Performed By: #### L 3400.4700, L506.0400 #### [facility] [address] [place], [address] GFR/1.73 sq M.predicted among non-blacks MDRD (S/P/Bld) [Vol rate/Area] 87 mL/min/{1.73_m2} Normal >60 [facility] Comment on above: Order Comment: Order Date: 06/10/24 Order Info: [id number] - TSIMM Result Comment: Non- GFR Calc Performed By: #### L 3400.4700, L506.0400 #### [facility] [address] [place], [address] Globulin (S) [Mass/Vol] 3.7 g/dL Normal 2.2-4.2 [facility] Comment on above: Order Comment: Order Date: 06/10/24 Order Info: [id number] - TSIMM Performed By: #### L 3400.4700, L506.0400 #### [facility] [address] [place], [address] Glucose [Mass/Vol] 92 mg/dL Normal 74-106 [facility] Comment on above: Order Comment: Order Date: 06/10/24 Order Info: [id number] - TSIMM Performed By: #### L 3400.4700, L506.0400 #### [facility] [address] [place], [address] Potassium [Moles/Vol] 4.1 mmol/L Normal 3.5-5.1 [facility] Comment on above: Order Comment: Order Date: 06/10/24 Order Info: [id number] - TSIMM Performed By: #### L 3400.4700, L506.0400 #### [facility] [address] [place], [address] Sodium [Moles/Vol] 142 mmol/L Normal 136-145 [facility] Comment on above: Order Comment: Order Date: 06/10/24 Order Info: [id number] - TSIMM Performed By: #### L 3400.4700, L506.0400 #### [facility] [address] [place], [address] T PROT 7.2 g/dL Normal 6.4-8.2 [facility] Comment on above: Order Comment: Order Date: 06/10/24 Order Info: [id number] - TSIMM Performed By: #### L 3400.4700, L506.0400 #### [facility] [address] [place], [address] Urea nitrogen [Mass/Vol] 19 mg/dL High 7-18 [facility] Comment on above: Order Comment: Order Date: 06/10/24 Order Info: [id number] - TSIMM Performed By: #### L 3400.4700, L506.0400 #### [facility] [address] [place], [address] Direct serum free thyroxine (FT4) measurementOrdered By: Fabiana Sharma on 06-10-2024 Free T4 [Mass/Vol] 1.05 ng/dL 0.76-1.46 [facility] Eosinophil percentageOrdered By: Fabiana Sharma on 06-10-2024 Eosinophils/100 WBC (Bld) 1.7 % 0-5 [facility] Epithelial cells.squamous LM Ql (Urine sed)Ordered By: Fabiana Sharma on 06-10-2024 Epithelial cells.squamous LM.HPF (Urine sed) [#/Area] 0 /[HPF] 0-5 [facility] Erythrocyte distribution wid th (RBC) [Ratio]Ordered By: Fabiana Sharma on 06-10-2024 Erythrocyte distribution width (RBC) [Entitic vol] 43.1 fL 35.1-43.9 [facility] Erythrocyte distribution wid th ratioOrdered By: Fabiana Sharma on 06-10-2024 Erythrocyte distribution width (RBC) [Ratio] 13.2 % 11.6-14.6 [facility] Estimated glomerular filtrat ion rate (GFR) AmericanOrdered By: Fabiana Sharma on 06-10-2024 Estimated GFR (MDRD) Amer 105 mL/min >60 [facility] Comment on above: GFR Calc Glomerular filtration rate ( GFR) estimationOrdered By: Fabiana Sharma on 06-10-2024 Estimated GFR (MDRD) Non-Af Amer 87 mL/min >60 [facility] Comment on above: Non- GFR Calc Glucose Ql (U)Ordered By: Lidia Sharma on 06-10-2024 Urine Glucose (UA) Normal mg/dl Normal [facility] Glucose measurementOrdered B y: Fabiana Sharma on 06-10-2024 Glucose [Mass/Vol] 92 mg/dL 74-106 [facility] Hematocrit Auto (Bld) [Volum e fraction]Ordered By: Fabiana Sharma on 06-10-2024 Hematocrit (Bld) [Volume fraction] 45.1 % 40-54 [facility] Hemoglobin measurementOrdere d By: Fabiana Sharma on 01-16-2025 Hemoglobin (Bld) [Mass/Vol] 14.4 g/dL 13.0-16.5 [facility] High density lipoprotein (HD L) measurementOrdered By: Fabiana Sharma on 06-10-2024 Cholesterol in HDL [Mass/Vol] 42 mg/dL >40 [facility] Comment on above: The drugs N-Acetylcy steine and Metamizole may falsely depress this assay. Reference Range HDL <40 mg/dL Low HDL Cholesterol HDL >or= 60 mg/dL High HDL Cholesterol Immature granulocytes/100 WB C Auto (Bld)Ordered By: Fabiana Sharma on 06-10-2024 Immature granulocytes/100 WBC (Bld) 0.400 % 0.0-0.9 [facility] Comment on above: IG% - Immature Granu locytes (promyelocytes, myelocytes and metamyelocytes) > 1% indicates that a LEFT SHIFT is Present. Ketones Test strip Ql (U)Ord ered By: Fabiana Sharma on 06-10-2024 Ketones Ql (U) 5 mg/dl High Negative [facility] - Chemistry and C hemistry - challengeOrdered By: Fabiana Sharma on 06-10-2024 AST [Catalytic activity/Vol] 15 U/L 15-37 [facility] Lipid Profileon 06-10-2024 Cholesterol [Mass/Vol] 189 mg/dL Normal 200 [facility] Comment on above: Order Comment: Order Date: 06/10/24 Order Info: [id number] - TSIMM Result Comment: <200 mg/dL Desirable 200-240 mg/dL Borderline >240 mg/dL High Risk Performed By: #### L 3400.4700, L506.0400 #### [facility] [address] [place], [place], [address] Cholesterol in HDL [Mass/Vol] 42 mg/dL Normal [facility] Comment on above: Order Comment: Order Date: 06/10/24 Order Info: [id number] - TSIMM Result Comment: The drugs N-Acetylcysteine and Metamizole may falsely depress this assay. Reference Range HDL <40 mg/dL Low HDL Cholesterol HDL >or= 60 mg/dL High HDL Cholesterol Performed By: #### L 3400.4700, L506.0400 #### [facility] [address] [place], [address] Cholesterol in LDL [Mass/Vol] 99 mg/dL Normal 0-130 [facility] Comment on above: Order Comment: Order Date: 06/10/24 Order Info: [id number] - TSIMM Performed By: #### L 3400.4700, L506.0400 #### [facility] [address] [place], [address] Cholesterol in VLDL [Mass/Vol] 48 mg/dL High 5-40 [facility] Comment on above: Order Comment: Order Date: 06/10/24 Order Info: [id number] - TSIMM Performed By: #### L 3400.4700, L506.0400 #### [facility] [address] [place], [address] Triglyceride [Mass/Vol] 240 mg/dL High [facility] Comment on above: Order Comment: Order Date: 06/10/24 Order Info: [id number] - TSIMM Result Comment: The drugs N-Acetylcysteine and Metamizole may falsely depress this assay. Serum Triglycerides Reference Interval Normal <150 mg/dL Borderline high 150 - 199 mg/dL High 200 - 499 mg/dL Very High > or = 500 mg/dL Performed By: #### L 3400.4700, L506.0400 #### [facility] [address] [place], [address] Low density lipoprotein (LDL ) cholesterol measurementOrdered By: Fabiana Sharma on 06-10-2024 Cholesterol in LDL [Mass/Vol] 99 mg/dL 0-130 [facility] Lymphocytes Auto (Unsp spec) [#/Vol]Ordered By: Fabiana Sharma on 06-10-2024 Lymphocytes (Bld) [#/Vol] 4.28 10*3/uL 0.83-4.51 [facility] Lymphocytes/100 WBC Auto (Un sp spec)Ordered By: Fabiana Sharma on 06-10-2024 Lymphocytes/100 WBC (Bld) 31.3 % 19-41 [facility] MCV (mean corpuscular volume ) determinationOrdered By: Fabiana Sharma on 06-10-2024 MCV (RBC) [Entitic vol] 88.6 fL 80-94 [facility] Mean corpuscular hemoglobin (MCH) determinationOrdered By: Fabiana Sharma on 06-10-2024 MCH (RBC) [Entitic mass] 28.3 pg 27.0-32.0 [facility] Mean corpuscular hemoglobin concentration (MCHC) determinationOrdered By: Fabiana Sharma on 06-10-2024 MCHC (RBC) [Mass/Vol] 31.9 g/dL Low 32-36 [facility] Mean platelet volume determi nationOrdered By: Fabiana Sharma on 06-10-2024 Platelet mean volume (Bld) [Entitic vol] 9.9 fL 6.2-12.0 [facility] Microscopic analysis of urin e for red blood cells (RBC)Ordered By: Fabiana Sharma on 06-10-2024 Urine RBC 0-5 SEEN /hpf 0-5 [facility] Monocyte percentageOrdered B y: Fabiana Sharma on 06-10-2024 Monocytes/100 WBC (Bld) 6.5 % 0-10 [facility] Mucus LM Ql (Urine sed)Order ed By: Fabiana Sharma on 06-10-2024 Mucus Ql (Urine sed) 1+ /hpf [facility] Neutrophil percentageOrdered By: Fabiana Sharma on 06-10-2024 Neutrophils/100 WBC (Bld) 59.4 % 47-70 [facility] Nitrite Test strip Ql (U)Ord ered By: Fabiana Sharma on 06-10-2024 Nitrite Ql (U) Negative Negative [facility] Nucleated red blood cell per centageOrdered By: Fabiana Sharma on 06-10-2024 Nucleated RBC/100 WBC (Bld) [Ratio] 0 % 0-5 [facility] Platelet countOrdered By: Lidia Sharma on 06-10-2024 Platelets (Bld) [#/Vol] 372 10*3/uL 150-450 [facility] Potassium measurementOrdered By: Fabiana Sharma on 06-10-2024 Potassium [Moles/Vol] 4.1 mmol/L 3.5-5.1 [facility] Protein Test strip Ql (U)Ord ered By: Fabiana Shamra on 06-10-2024 Protein Ql (U) Negative Negative [facility] RBC Auto (Bld) [#/Vol]Ordere d By: Fabiana Sharma on 06-10-2024 RBC (Bld) [#/Vol] 5.09 10*6/uL 4.6-6.2 [facility] Serum anion gap measurementO rdered By: Fabiana Sharma on 06-10-2024 Anion gap [Moles/Vol] 5 mmol/L 5-15 [facility] Serum globulin measurementOr dered By: Fabiana Sharma on 06-10-2024 Globulin (S) [Mass/Vol] 3.7 g/dL 2.2-4.2 [facility] Serum or plasma alanine capellan otransferase (ALT) measurementOrdered By: Fabiana Sharma on 06-10-2024 ALT [Catalytic activity/Vol] 22 U/L 16-61 [facility] Serum or plasma albumin marco antonio urement (mass/volume)Ordered By: Fabiana Sharma on 06-10-2024 Albumin [Mass/Vol] 3.5 g/dL 3.2-5.0 [facility] Serum or plasma alkaline laurence sphatase measurementOrdered By: Fabiana Sharma on 06-10-2024 ALP [Catalytic activity/Vol] 66 U/L 45-117 [facility] Serum or plasma calcium marco antonio urement (mass/volume)Ordered By: Fabiana Sharma on 06-10-2024 Calcium [Mass/Vol] 8.8 mg/dL 8.5-10.1 [facility] Serum or plasma cholesterol measurement (mass/volume)Ordered By: Fabiana Sharma on 06-10-2024 Cholesterol [Mass/Vol] 189 mg/dL <200 [facility] Comment on above: <200 mg/dL Desirable 200-240 mg/dL Borderline >240 mg/dL High Risk Serum or plasma creatinine m easurement (mass/volume)Ordered By: Fabiana Sharma on 06-10-2024 Creatinine [Mass/Vol] 0.92 mg/dL 0.70-1.30 [facility] Comment on above: The validity of the calculated GFR & GFRAA in patients over 70 years has not been determined. Clinical correlation is essential. Serum or plasma urea nitroge n measurement (mass/volume)Ordered By: Fabiana Sharma on 06-10-2024 Urea nitrogen [Mass/Vol] 19 mg/dL High 7-18 [facility] Sodium levelOrdered By: Fabiana Sharma on 06-10-2024 Sodium [Moles/Vol] 142 mmol/L 136-145 [facility] T4 Free Directon 06-10-2024 T4 FREE DIRECT 1.05 ng/dL Normal 0.76-1.46 [facility] Comment on above: Order Comment: Order Date: 06/10/24 Order Info: [id number] - CMP Order Info: [id number] - LIPID Order Info: [id number] - TSH Order Info: [id number] - T4F Performed By: #### L 3400.4700, L506.0400 #### [facility] [address] [place] [address], [address] TPO Ab QnOrdered By: Fabiana patel on 06-10-2024 Thyroid Peroxidase Antibodies 14 IU/mL 0-34 [facility] Comment on above: Performed at: [address] [id number] Director: Parker Ramirez MD, Phone: [phone] at: [facility] [id number] Director: César Gutierrez PhD, Phone: [phone] TSH QnOrdered By: Fabiana flores on 06-10-2024 Thyroid Stimulating Hormone (TSH) 0.384 uIU/mL 0.358-3.74 0 [facility] Thyroglobulin Ab serumOrdere d By: Fabiana Sharma on 06-10-2024 Thyroglobulin Antibody < 1.0 IU/mL 0.0-0.9 [facility] Comment on above: Thyroglobulin Antibo dy measured by Mikaela CoulterMethodologyIt should be noted that the presence of thyroglobulinantibodies may not be pathogenic nor diagnostic, especiallyat very low levels. The assay funeral service manager has found thatfour percent of individuals without evidence of thyroiddisease or autoimmunity will have positive TgAb levels upto 4 IU/mL. Thyroglobulin serOrdered By: Fabiana Sharma on 06-10-2024 Thyroglobulin Level 8.2 ng/mL 1.4-29.2 [facility] Comment on above: According to the [facility] [employer] of Clinical [employer]ochemistry,the reference interval for Thyroglobulin (TG) should berelated to euthyroid patients and not for patients whounderwent thyroidectomy. TG reference intervals for thesepatients depend on the residual mass of the thyroid tissueleft after surgery. Establishing a post-operative baselineis recommended. The assay limit of quantitation is 0.1ng/mLThyroglobulin measured by Mikaela [place] [employer] Thyroid Stim Hormone (TSH)on 06-10-2024 TSH 0.384 uIU/mL Normal 0.358-3.74 0 [facility] Comment on above: Order Comment: Order Date: 06/10/24 Order Info: [id number] - TSIMM Performed By: #### L 3400.4700, L506.0400 #### [facility] [address] [place] [address]. [place], [address] Thyroid stimulating immunogl obulins Ql (S)Ordered By: Fabiana Sharma on 06-10-2024 Thyroid Stimulating Immunoglobulin <0.10 IU/L 0.00-0.55 [facility] Total proteinOrdered By: Kd Sharma on 06-10-2024 Protein [Mass/Vol] 7.2 g/dL 6.4-8.2 [facility] Triglycerides measurementOrd ered By: Fabiana Sharma on 06-10-2024 Triglyceride [Mass/Vol] 240 mg/dL High <199 [facility] Comment on above: The drugs N-Acetylcy steine and Metamizole may falsely depress this assay.Serum Triglycerides Reference Interval Normal <150 mg/dL Borderline high 150 - 199 mg/dL High 200 - 499 mg/dL Very High > or = 500 mg/dL Urinalysis, Completeon 06-10 BACTERIA RARE Normal None Seen [facility] Comment on above: Order Comment: CLEAN CATCH Performed By: #### L 3300.6900, L3300.6820, M100.2200, L400.0001 #### [facility] [address] [place], [address] EPI,SQUAMOUS 0-5 SEEN Normal 0-5 [facility] Comment on above: Order Comment: CLEAN CATCH Performed By: #### L 3300.6900, L3300.6820, M100.2200, L400.0001 #### [facility] [address] [place], [address] Mucus Ql (Urine sed) 1+ /hpf Normal [facility] Comment on above: Order Comment: CLEAN CATCH Performed By: #### L 3300.6900, L3300.6820, M100.2200, L400.0001 #### [facility] [address] [place], [address] RBC 0-5 SEEN Normal 0-5 [facility] Comment on above: Order Comment: CLEAN CATCH Performed By: #### L 3300.6900, L3300.6820, M100.2200, L400.0001 #### [facility] [address] [place], [address] WBC 10-25 SEEN Normal 0-5 [facility] Comment on above: Order Comment: CLEAN CATCH Performed By: #### L 3300.6900, L3300.6820, M100.2200, L400.0001 #### [facility] [address] [place], [address] Urine blood detectionOrdered By: Fabiana Sharma on 06-10-2024 Urine Occult Blood 10 /ul High Negative [facility] Urine clarityOrdered By: Kd Sharma on 06-10-2024 Clarity (U) Clear Clear [facility] Urine color determinationOrd ered By: Fabiana Sharma on 06-10-2024 Color (U) Yellow Yellow [facility] Urine cultureOrdered By: Kd Sharma on 06-10-2024 Bacteria identified Cx Nom (U) Culture exhibits no growth. [facility] Urine leukocyte esterase det ection by dipstickOrdered By: Fabiana Sharma on 06-10-2024 Leukocyte esterase Test strip Ql (U) 25 /ul High Negative [facility] Urine pHOrdered By: Fabiana waldron on 06-10-2024 pH (U) 5.0 [pH] 5.0 - 8.0 [facility] Urine specific gravity measu rementOrdered By: Fabiana Sharma on 06-10-2024 Specific gravity (U) [Rel density] 1.025 1.002-1.03 0 [facility] Urobilinogen Ql (U)Ordered B y: Fabiana Sharma on 06-10-2024 Urobilinogen (U) [Mass/Vol] 1 mg/dL High Normal [facility] Very low density lipoprotein (VLDL) cholesterol measurementOrdered By: Fabiana Sharma on 06-10-2024 VLDL Cholesterol 48 mg/dL High 5-40 [facility] White blood cell (WBC) count Ordered By: Fabiana Sharma on 06-10-2024 WBC (Bld) [#/Vol] 13.7 10*3/uL High 4.4-11.0 [facility] White blood cell countOrdere d By: Fabiana Sharma on 06-10-2024 Urine WBC 10-25 SEEN /hpf 0-5 [facility] CNOVon 05-28-2024 CNOV Office Visit ([facility] ) -- SOFIA CALVIN ([id number]) 1955 M Date Time Provider Department 05/28/24 10:00 AM [facility] DAILY [facility] During your visit today, we recorded the following information about you: Temperature Pulse Respiration Blood pressure 98.9 degrees 92/minute 18/minute 92/58 Weight 104.2 kg Ferdinand Daily APRN.DATA TECHNICAL LEAD 05/28/2024 10:29 AM Signed Subjective HPI HPI Sofia Weaver Marixa is a 68 year old male who presents today for CC of cough, chest congestion. This started 1 week ago. Has tried otc medication for relief. Symptoms are worsened by nothing. Risk factors with pneumonia currently. .Patient presents with: Cough: With chest congestion x 1 week PAST MEDICAL HISTORY Diagnosis Date Peripheral neuropathy No past surgical history on file. ALLERGIES Patient has no known allergies. MEDICATIONS gabapentin (NEURONTIN) 300 mg capsule Take 300 mg by mouth two times a day. No family history on file. Social History Tobacco Use Smoking status: Every Day Tobacco comments: On e-cig now Review of Systems Constitutional: Negative for fever. HENT: Positive for congestion. Negative for ear pain, nosebleeds and sore throat. Respiratory: Positive for cough. Negative for shortness of breath and wheezing. Musculoskeletal: Negative for neck pain. Objective Blood pressure 92/58, pulse 92, temperature 37.2 ?C (98.9 ?F), temperature source Left Tympanic, resp. rate 18, weight 104.2 kg (229 lb 11.5 oz), SpO2 97%. Physical Exam Constitutional: General: He is not in acute distress. Appearance: He is not toxic-appearing or diaphoretic. HENT: Head: Normocephalic and atraumatic. Cardiovascular: Rate and Rhythm: Normal rate and regular rhythm. Heart sounds: Normal heart sounds, S1 normal and S2 normal. Pulmonary: Effort: Pulmonary effort is normal. Breath sounds: Normal breath sounds. Lymphadenopathy: Cervical: No cervical adenopathy. Right cervical: No superficial cervical adenopathy. Left cervical: No superficial cervical adenopathy. Neurological: Mental Status: He is alert and oriented to person, place, and time. Gait: Gait is intact. ASSESSMENT/PLAN: 1. Lower resp. tract infection - ICD9: 519.8, ICD10: J22 (primary diagnosis) - Discussed supportive care - Limit exposure to smoke and other inhaled irritants - Discussed possible red flags and when to seek medical attention - Follow up in 3-5 days or sooner if no better or worse -If you experience chest pain/shortness of breath go to ER - DOXYCYCLINE MONOHYDRATE 100 MG TABLET 2. Pneumonia exposure - ICD9: V01.89, ICD10: Z20.89 - DOXYCYCLINE MONOHYDRATE 100 MG TABLET Ferdinand Daily APRN.DATA TECHNICAL LEAD Allergies As of Date: 05/28/2024 (No Known Allergies) Date Reviewed: 05/28/2024 Reviewed by: Tammi Uriarte MA - Fully Assessed Reason for Visit: Cough [28] Cmt: With chest congestion x 1 week Primary Visit Diagnosis:Lower resp. tract infection [J22] Other Visit Diagnosis:Pneumonia exposure [Z20.89] Order(s):doxycycline monohydrate 100 mg tabletTake 1 tablet by mouth two times a day for 7 days.Disp: 14 tabletRfl: 0 Prescriptions as of 05/28/2024 - gabapentin (NEURONTIN) 300 mg capsule Take 300 mg by mouth two times a day. - doxycycline monohydrate 100 mg tablet Take 1 tablet by mouth two times a day for 7 days. 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 Route: ORAL Sig: Take 1 tablet by mouth two times a day for 7 days. Encounter Status:Closed by FERDINAND DAILY on 05/28/24 Normal [facility] COVID-19, MOLECULARon 2023 SARS-CoV-2 (COVID-19) Ab IA Ql Not detected Normal Not Detected [facility] Comment on above: Result Comment: Test ing was performed using the [place] ID NOW COVID-19 assay on the ID NOW platform. This test has not been approved for use in asymptomatic patients and its performance in this patient population has not been evaluated. Negative results do not rule out the presence of SARS-CoV-2/COVID-19. CT ANGIOGRAM CHEST ABDOMEN P ELVISon 05-15-2024 CT ANGIOGRAM CHEST ABDOMEN PELVIS EXAMINATION: CT ANGIOGRAM CHEST ABDOMEN PELVIS HISTORY: ORDERING SYSTEM PROVIDED HISTORY: Aortic aneurysm, known or suspected, TECHNOLOGIST PROVIDED HISTORY: Illness/Other Reason for exam: chest pain Encounter Type: Initial Additional signs and symptoms: chest pain ORDERING SYSTEM PROVIDED DIAGNOSIS CODES: R07.9 Chest pain, unspecified type COMPARISON: None TECHNIQUE: CTA examination of the chest, abdomen, and pelvis following the administration of intravenous contrast. Coronal and sagittal 3D reformations were performed. Dose reduction techniques were achieved by using automated exposure control and/or adjustment of mA and/or kV according to patient size and/or use of iterative reconstruction technique. CONTRAST: IOPAMIDOL 370 MG IODINE/ML (76 %) INTRAVENOUS SOLUTION - 75 mL, FINDINGS: CT chest: Lungs: Mild right mid and lower lung subsegmental atelectasis. Pleura: No effusions. No pneumothorax. Breast tissue: Symmetric. Cardiovascular: Normal heart and aorta. The main pulmonary artery is normal. Mediastinum: Normal thyroid, trachea, and esophagus. Lymph nodes: No adenopathy. CT abdomen: Liver: There are few small cysts.. Spleen: Normal. Stomach: Small sliding hiatal hernia.. Gallbladder and bile ducts: Cholecystectomy. Bowel: No obstruction, free air, or ascites. There is no mucosal thickening. There is diffuse sigmoid diverticulosis with mild fat stranding around some of the more proximal diverticula. There other scattered colonic diverticula. Mildly heavy colonic stool burden. Appendix: Normal. Kidneys: Normal. Adrenal glands: Normal. Pancreas: Normal. Vascular: Normal aorta and IVC. No aneurysm or dissection. Normal celiac, mesenteric, renal, and iliac arteries. CT pelvis: Normal bladder. No abnormalities of the prostate or seminal vesicles. No pelvic adenopathy or ascites. Skeletal: No lytic or sclerotic lesions. Mild osteoarthritis of the right glenohumeral joint. Posterior fusion L4-S1. IMPRESSION: 1. Diffuse colonic diverticulosis. There is mild fat stranding around some of the proximal diverticula, most likely representing mild diverticulitis. This could also represent epiploic appendagitis, however. 2. Mildly heavy colonic stool burden. 3. A few scattered liver cysts. 4. Tiny sliding hiatal hernia. The 5. Cholecystectomy. Workstation ID: [id number] Dictated by: MINI SOLANO on Sat May 15, 2024 5:09:47 AM EST Transcribed by: MINI SOLANO on Sat May 15, 2024 5:09:47 AM EST Finalized by: MINI SOLANO on Sat May 15, 2024 5:09:47 AM EST Normal [facility] Comment on above: Order Comment: Injur y/Trauma or Illness?:Illness/Other How long have you had these symptoms (acute/chronic)?:Acute Reason for exam?:chest pain Type of Exam?:Initial Additional signs and symptoms?:chest pain ED Prov Noteon 05-15-2024 ED Prov Note ED PROVIDER NOTE [facility] EMERGENCY DEPARTMENT NAME: Sofia Calvin AGE: 68 y.o. 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 States he is also has slight cough he is a smoker denies hypertension diabetes high cholesterol denies any prior history of coronary disease valvular disease or arrhythmias and is here triaged to room 3, blood pressure of 123/80 pulse of 92 respiration 19 pulse ox 100% he took aspirin prior to arrival here he is accompanied by his daughter No past medical history on file. No past surgical history on file. No family history on file. Social History Socioeconomic History Marital status: No current outpatient medications on file prior to encounter. No Known Allergies Review of Systems All other systems reviewed and are negative. Patient Vitals for the past 24 hrs: BP Temp Temp src Pulse Resp SpO2 Height Weight 05/15/24 0615 123/80 -- -- 92 (!) 19 93 % -- -- 05/15/24 0600 127/89 -- -- 96 17 92 % -- -- 05/15/24 0545 129/85 -- -- 86 (!) 20 94 % -- -- 05/15/24 0530 134/86 -- -- 89 (!) 20 93 % -- -- 05/15/24 0515 135/85 -- -- 87 12 95 % -- -- 05/15/24 0500 135/82 -- -- 87 (!) 19 92 % -- -- 05/15/24 0445 128/81 -- -- 86 17 96 % -- -- 05/15/24 0415 138/81 -- -- 89 15 94 % -- -- 05/15/24 0400 -- -- -- 91 18 95 % -- -- 05/15/24 0345 (!) 149/85 -- -- 95 17 93 % -- -- 05/15/24 0330 (!) 139/90 -- -- 97 18 94 % -- -- 05/15/24 0320 115/86 98.6 degrees F (37 degrees C) Temporal 82 18 93 % 6' 1 99.8 kg (220 lb) Physical Exam Vitals and nursing note reviewed. Constitutional: Appearance: He is well-developed and normal weight. HENT: Head: Normocephalic and atraumatic. Eyes: Extraocular Movements: Extraocular movements intact. Pupils: Pupils are equal, round, and reactive to light. Cardiovascular: Rate and Rhythm: Normal rate and regular rhythm. Heart sounds: Normal heart sounds. Musculoskeletal: General: Normal range of motion. Cervical back: Normal range of motion and neck supple. Pulmonary: Effort: Pulmonary effort is normal. Breath sounds: Normal breath sounds. Skin: General: Skin is warm. Capillary Refill: Capillary refill takes less than 2 seconds. Neurological: Mental Status: He is alert. Laboratory & Radiographic Imaging (if done): Results for orders placed or performed during the hospital encounter of 05/15/24 POC CBC and Differential Result Value Ref Range WBC 14.04 (H) 4.50 - 11.00 K/mcL RBC 5.45 4.50 - 5.90 M/mcL Hemoglobin 15.6 13.5 - 17.5 g/dL Hematocrit 47.7 41.0 - 53.0 % MCV 87.5 80.0 - 100.0 fL MCH 28.6 26.0 - 34.0 pg MCHC 32.7 31.0 - 37.0 g/dL RDW - CV 13.1 11.6 - 14.8 % Platelets 287 150 - 400 K/mcL MPV 9.3 (L) 9.4 - 12.4 fL Neutrophils 72.9 % Lymphocytes 18.1 % Monocytes 7.8 % Eosinophils 0.9 % Basophils 0.2 % IG Percent 0.10 % Neutrophils Abs 10.22 (H) 1.70 - 7.00 K/mcL Lymphocytes Abs 2.54 0.90 - 4.00 K/mcL Monocytes Abs 1.10 (H) 0.30 - 0.90 K/mcL Eosinophils Abs 0.13 0.00 - 0.50 K/mcL Basophils Abs 0.03 0.00 - 0.30 K/mcL IG Absolute 0.02 0.00 - 0.30 K/mcL COVID-19, Molecular Specimen: Swab Result Value Ref Range SARS-CoV-2 Not Detected Not Detected POC Basic Metabolic Panel Result Value Ref Range Glucose 127 (H) 65 - 99 mg/dL BUN 16 8 - 25 mg/dL Creatinine 0.95 0.80 - 1.30 mg/dL GFR 88 >=60 mL/min/1.73 m2 Sodium 142 135 - 145 mmol/L Potassium 4.2 3.5 - 5.1 mmol/L Chloride 104 98 - 108 mmol/L TCO2 28 21 - 32 mmol/L Ionized Calcium 4.6 4.5 - 5.3 mg/dL POC B-type natriuretic peptide (BNP) Result Value Ref Range BNP <5.0 <100 pg/mL POC D-dimer Result Value Ref Range POC D-Dimer 329 <350 ng/mL DDU POC Troponin I Result Value Ref Range Troponin I <0.05 <0.05 ng/mL POC Influenza A/B Result Value Ref Range POC Rapid Influenza A Ag Not Detected Not Detected POC Influenza B Ag Not Detected Not Detected CT Angiogram Chest Abdomen Pelvis Final Result 1. Diffuse colonic diverticulosis. There is mild fat stranding around some of the proximal diverticula, most likely representing mild diverticulitis. This could also represent epiploic appendagitis, however. 2. Mildly heavy colonic stool burden. 3. A few scattered liver cysts. 4. Tiny sliding hiatal hernia. The 5. Cholecystectomy. Workstation ID: [id number] Procedures Medical Decision Making Amount and/or Complexity of Data Reviewed ECG/medicine tests: ordered and independent interpretation performed. Details: EKG reveals normal sinus rhythm with a rate of 97 no acute ischemic changes noted as interpreted by me The patient has been informed that they may have pr (more content not included)... Normal [facility] LIPID PANELon 05-15-2024 Cholesterol [Mass/Vol] 204 mg/dL High 100-199 [facility] Comment on above: Result Comment: [place]ena onal Cholesterol Education Program Guidelines: Cholesterol Desirable: <200 mg/dL Borderline High: 200-239 mg/dL High: greater than or equal to 240 mg/dL Performed By: #### [id number] #### LAB [address] [place], [place] [address] Ferdinand Lopez M.D. [id number] Cholesterol in HDL [Mass/Vol] 50 mg/dL Normal 40-59 [facility] Comment on above: Result Comment: [place]ena onal Cholesterol Education Program Guidelines: HDL Cholesterol Low: <40 mg/dL Near Optimal: 40-59 mg/dL High: greater than or equal to 60 mg/dL Performed By: #### [id number] #### LAB [address] [place] [address] Ferdinand Lopez M.D. [id number] Cholesterol.total/Cho lesterol in HDL [Mass ratio] 4.1 {ratio} Normal [facility] Comment on above: Result Comment: Male s Cholesterol/HDL Ratio: Average risk: 5.0 1/2 average risk: 3.4 2 x average risk: 9.6 Performed By: #### [id number] #### [address] [place] [address] Ferdinand Lopez M.D. [id number] LDL CHOLESTEROL CALCULATED 130 mg/dL Normal 10-130 [facility] Comment on above: Result Comment: [place]ena on[place] Cholesterol Education Program Guidelines: LDL Cholesterol Optimal: <100 mg/dL Near Optimal/above Optimal: 100-129 mg/dL Borderline High: 130-159 mg/dL High: 160-189 mg/dL Very High: greater than or equal to 190 mg/dL Performed By: #### [id number] #### [address] [place] [address] Ferdinand Lopez M.D. [id number] NON HDL CHOL 154 mg/dL Normal [facility] Comment on above: Result Comment: [place]ena onal Cholesterol Education Program Guidelines: NON HDL Cholesterol Desirable: <130 mg/dL Borderline High: 130-159 mg/dL High: 160-189 mg/dL Very High: > or = 190 mg/dL Performed By: #### [id number] #### [address] [place] [address] Ferdinand Lopez M.D. [id number] Triglyceride [Mass/Vol] 122 mg/dL Normal 30-150 [facility] Comment on above: Result Comment: Dena onal Cholesterol Education Program Guidelines: Triglyceride Normal: <150 mg/dL Borderline High: 150-199 mg/dL High: 200-499 mg/dL Very High: greater than or equal to 500 mg/dL Performed By: #### [id number] #### [facility] [address] [place] [address] Ferdinand Lopez M.D. [id number] POC B-TYPE NATRIURETIC PEPTI DE (BNP) - [facility] 05-15-2024 POC B-TYPE NATRIURETIC PEPTIDE < Normal <100 [facility] POC BASIC METABOLIC PANEL - [facility] 05-15-2024 Chloride [Moles/Vol] 104 mmol/L Normal 98-108 [facility] Comment on above: Order Comment: [facility] has implemented the eGFR calculation approach that does not have a coefficient for race that conforms to the NKF-ASN Task Force Recommendations. CO2 [Moles/Vol] 28 mmol/L Normal 21-32 [facility] Comment on above: Order Comment: [facility] has implemented the eGFR calculation approach that does not have a coefficient for race that conforms to the NKF-ASN Task Force Recommendations. Creatinine [Mass/Vol] 0.95 mg/dL Normal 0.80-1.30 [facility] Comment on above: Order Comment: [facility] has implemented the eGFR calculation approach that does not have a coefficient for race that conforms to the NKF-ASN Task Force Recommendations. Glucose [Mass/Vol] 127 mg/dL High 65-99 [facility] Comment on above: Order Comment: [facility] has implemented the eGFR calculation approach that does not have a coefficient for race that conforms to the NKF-ASN Task Force Recommendations. POC GFR 88 mL/min/1.73 m2 Normal >=60 [facility] Comment on above: Order Comment: [facility] has implemented the eGFR calculation approach that does not have a coefficient for race that conforms to the NKF-ASN Task Force Recommendations. Result Comment: Aracelis mated GFR was calculated using the 2020 CKD-EPI creatinine equation. POC IONIZED CALCIUM 4.6 mg/dL Normal 4.5-5.3 [facility] Comment on above: Order Comment: [facility] has implemented the eGFR calculation approach that does not have a coefficient for race that conforms to the NKF-ASN Task Force Recommendations. Potassium [Moles/Vol] 4.2 mmol/L Normal 3.5-5.1 [facility] Comment on above: Order Comment: [facility] has implemented the eGFR calculation approach that does not have a coefficient for race that conforms to the NKF-ASN Task Force Recommendations. Sodium [Moles/Vol] 142 mmol/L Normal 135-145 [facility] Comment on above: Order Comment: [facility] has implemented the eGFR calculation approach that does not have a coefficient for race that conforms to the NKF-ASN Task Force Recommendations. Urea nitrogen [Mass/Vol] 16 mg/dL Normal 8-25 [facility] Comment on above: Order Comment: [facility] has implemented the eGFR calculation approach that does not have a coefficient for race that conforms to the NKF-ASN Task Force Recommendations. POC CBC AND DIFFERENTIALon 07-16-2023 BASOPHILS ABSOLUTE COUNT 0.03 K/mcL Normal 0.00-0.30 [facility] Basophils/100 WBC (Bld) 0.2 % Normal [facility] Eosinophils (Bld) [#/Vol] 0.13 10*3/uL Normal 0.00-0.50 [facility] Eosinophils/100 WBC (Bld) 0.9 % Normal [facility] Erythrocyte distribution width (RBC) [Ratio] 13.1 % Normal 11.6-14.8 [facility] Hematocrit (Bld) [Volume fraction] 47.7 % Normal 41.0-53.0 [facility] Hemoglobin (Bld) [Mass/Vol] 15.6 g/dL Normal 13.5-17.5 [facility] IG ABSOLUTE 0.02 K/mcL Normal 0.00-0.30 [facility] IG PERCENT 0.10 % Normal [facility] Comment on above: Result Comment: The IG parameter is the percentage of metamyelocytes, myelocytes and promyelocytes. An immature granulocyte count (IG) of 1% or more suggests the possibility of infection, an IG count of 3% is very likely related to an infection. Lymphocytes (Bld) [#/Vol] 2.54 10*3/uL Normal 0.90-4.00 [facility] Lymphocytes/100 WBC (Bld) 18.1 % Normal [facility] MCH (RBC) [Entitic mass] 28.6 pg Normal 26.0-34.0 [facility] MCV (RBC) [Entitic vol] 87.5 fL Normal 80.0-100.0 [facility] MEAN CORPUSCULAR HEMOGLOBIN CONC 32.7 g/dL Normal 31.0-37.0 [facility] Monocytes (Bld) [#/Vol] 1.10 10*3/uL High 0.30-0.90 [facility] Monocytes/100 WBC (Bld) 7.8 % Normal [facility] NEUTROPHILS ABSOLUTE COUNT 10.22 K/mcL High 1.70-7.00 [facility] Neutrophils/100 WBC (Bld) 72.9 % Normal [facility] Platelet mean volume (Bld) [Entitic vol] 9.3 fL Low 9.4-12.4 [facility] Platelets (Bld) [#/Vol] 287 10*3/uL Normal 150-400 [facility] RBC (Bld) [#/Vol] 5.45 10*6/uL Normal 4.50-5.90 [facility] WBC (Bld) [#/Vol] 14.04 10*3/uL High 4.50-11.00 [facility] POC D-DIMER [facility] 4 POC D-DIMER 329 ng/mL DDU Normal <350 [facility] Comment on above: Order Comment: A D-D ramin concentration of <350 ng/mL DDU is considered a low probability for pulmonary embolism (PE) and deep venous thrombosis (DVT). Results of this test should always be interpreted in conjunction with the patient's medical history, clinical presentation, and other findings. Clinical diagnosis should not be based on the results of the D-dimer alone. The above D-dimer cutoff pertains to its use for the exclusion of DVT or PE. The range associated with other clinical conditions (e.g. sepsis) has not been validated for this method. 90% of normal patients are less than 400 ng/ml. POC INFLUENZA A/B - [place] [id number] 07-16-2023 POC INFLUENZA A (FSED) Not detected Normal Not Detected [facility] POC INFLUENZA B (FSED) Not detected Normal Not Detected [facility] POC TROPONIN I RALSon 2023 POC TROPONIN I < Normal <0.05 [facility] TROPONINon 05-15-2024 TROPONIN T DELTA CHANGE INTERPRETATION Delta troponin requires at least 3 hours between collections. Normal [facility] Comment on above: Performed By: #### [id number] #### [facility] [address] [place], [place] [address] Ferdinand Lopez M.D. [id number] TROPONIN T NG/L 12 ng/L Normal <=22 [facility] Comment on above: Performed By: #### [id number] #### [facility] [address] [place], [place] [address] Ferdinand Lopez M.D. [id number] BASELINE TROPONIN T NG/L 12 ng/L Normal <=22 [facility] Comment on above: Performed By: #### [id number] #### LAB [address] [place], [place] [address] Ferdinand Lopez M.D. [id number] TROPONIN T INTERPRETATION Normal Normal [facility] Comment on above: Performed By: #### [id number] #### LAB [address] [place], [place] [address] Ferdinand Lopez M.D. [id number] MR lumbar spine wo [facility] MR lumbar spine wo [facility] [place] [address] MRI Report Signed Patient: Sofia Calvin MR#: [id number] 10 : 1955 Acct:[id number] Age/Sex: 68 / M ADM Date: 05/13/24 Loc: MR Room: Type: [facility] Attending Dr: Bruno Cruz MD Copies to: Bruno Cruz MD Ordering Provider: Bruno Cruz MD Date of Service: 05/13/24 MR/MR lumbar spine wo con: M48.062 - Spinal stenosis, lumbar region with neurogenic ... MRI LUMBAR SPINE WITHOUT CONTRAST COMPARISON: 03/18/2023 and plain films 04/20/2024 CLINICAL DATA: Neurogenic claudication due to spinal stenosis. Previous lumbar laminectomy and fusion. Multiecho imaging in the axial and sagittal plane was performed without contrast. Slight levoscoliotic curvature is present. There is prior laminectomy and fusion with posterior rods, pedicle screws and interbody fusion devices extending from L4 through S1. There is some associated susceptibility artifact. A fluid collection is again visualized at the laminectomy site. There is approximately 6 mm of retrolisthesis of L3 on L4. Alignment is otherwise maintained. No acute compression fractures are identified. There are degenerative endplate signal changes and spurring. The conus medullaris is within normal limits for caliber, position and signal intensity. No paraspinal soft tissue abnormalities are noted. At T12-L1, there is no disc disease or stenosis. At L1-2, there is minor annular disc bulging toward the neural foramen. There is also mild facet and ligament hypertrophy. Mild thecal sac effacement is visualized. The neural foramen are patent. At L2-3, there is slight narrowing of the disc space. Disco-osteophytic osteophytic bulging is again visualized, greater toward the neural foramen and extending laterally. There is bilateral facet and ligamentous hypertrophy. There is mild thecal sac effacement. There is mild to moderate bilateral foraminal encroachment. At L3-4, there is narrowing of the disc space. There is continued disco-osteophytic bulging as well as uncovering of the disc. There is facet and ligamentous hypertrophy. There is fluid within the facet joints. Severe central stenosis is again noted. There is moderate bilateral foraminal encroachment. At L4-5, there is no disc disease or thecal sac deformation. The left neural foramen appears patent however there is potential moderate foraminal encroachment on the right due to endplate spurring. At the lumbosacral junction, there is some endplate spurring. There is no deformation of thecal sac. There is mild right and potential moderate left foraminal encroachment due to hypertrophy. MR/MR lumbar spine wo con IMPRESSION: SUBTLE SCOLIOSIS WITH POSTOPERATIVE AND DISCOVERTEBRAL DEGENERATIVE CHANGES, SIMILAR TO THE PRIOR. THERE IS CONTINUED ASSOCIATED STENOSIS, GREATEST AT L3-4. Impression dictated by: Cathy Sharp M.D.05/13/2024 3:50 PM Dictation Location: [place] [address] Transcribed By: PÉREZ 05/13/24 1550 Dictated By: Cathy Sharp MD 05/13/24 1538 Signed By: 05/13/24 1550 Normal [facility] XR lumbar spine 6V w bending on 04-20-2024 XR lumbar spine 6V w bending [facility] [place] [address] [place], [place] [id number] XRay Report Signed Patient: Sofia Calvin MR#: [id number] 10 : 1955 Acct:[id number] Age/Sex: 68 / M ADM Date: 04/20/24 Loc: XD Room: Type: [facility] Attending Dr: Bruno Cruz MD Copies to: Bruno Cruz MD Ordering Provider: Bruno Cruz MD Date of Service: 04/20/24 XR/XR lumbar spine 6V w bending: M54.50 - Low back pain, unspecified XR lumbar spine 6V w bending 04/20/2024 9:16 AM SIGNS AND SYMPTOMS: Numbness and tingling down left leg, low back pain PROTOCOLS: Frontal, lateral, and flexion-extension views of the lumbar spine COMPARISON: 12/18/2023 FINDINGS: There is posterior fusion hardware from L4 through S1 with transpedicular screw fractures at S1 bilaterally. Fusion appears to be complete at these levels. There is moderate disc height loss with anterior osteophyte formation at L2-L3 and L3-L4. There is mild disc height loss and anterior osteophyte formation at L1-L2. There is 7 mm of retrolisthesis of L3 upon L4 which reduces to approximately 3 mm from extension and neutral to flexion. This is suspicious for pathologic movement. There is 5 mm of retrolisthesis of L2 on 3 on extension reducing to near neutral on flexion suggesting pathologic movement. The sacrum and sacroiliac joints are normal. Atherosclerotic changes are noted in the abdominal aorta. There is evidence of prior cholecystectomy. XR/XR lumbar spine 6V w bending IMPRESSION: Unchanged L4-S1 fusion with bilateral S1 transpedicular screw fractures. There is 7 mm of retrolisthesis of L3 upon L4 which reduces to approximately 3 mm from extension and neutral to flexion. This is suspicious for pathologic movement. There is 5 mm of retrolisthesis of L2 on 3 on extension reducing to near neutral on flexion suggesting pathologic movement. Impression dictated by: Tuan Leal M.D.04/20/2024 11:45 AM Dictation Location: [facility]-- Transcribed By: [facility] 04/20/24 1145 Dictated By: Tuan Leal II, MD 04/20/24 1141 Signed By: 04/20/24 1145 [facility] CNOVon 04-02-2024 CNOV Office Visit (UCWSTR ) -- SOFIA CALVIN ([id number]) 1955 M Date Time Provider Department 04/02/24 11:15 AM JASVIR LISA [facility] During your visit today, we recorded the following information about you: Temperature Pulse Respiration Blood pressure 97.2 degrees 70/minute 20/minute 123/77 Weight 104 kg Jasvir Lisa APRN.DATA TECHNICAL LEAD 04/02/2024 11:55 AM Signed Subjective Noticed a tick on him several days ago. Now he has a redness around the bite area he is concerned about. Patient is not having any other symptoms at this time. The history is provided by the patient. No foreign language instructor was used. Review of Systems Constitutional: Negative. Objective Physical Exam Constitutional: Appearance: Normal appearance. Pulmonary: Effort: Pulmonary effort is normal. Abdominal: Comments: Bite tuan in the area marked purple. Red area is redness around the bite tuan. Neurological: Mental Status: He is alert. PAST MEDICAL HISTORY Diagnosis Date Peripheral neuropathy No past surgical history on file. ALLERGIES Patient has no known allergies. MEDICATIONS No prescriptions on file. No family history on file. Social History Tobacco Use Smoking status: Every Day Tobacco comments: On e-cig now ASSESSMENT/PLAN: 1. Puncture wound - ICD9: 879.8, ICD10: T14.8XXA - DOXYCYCLINE HYCLATE 100 MG CAPSULE Patient is educated about proper use of medication and supportive therapy. Will monitor for signs and symptoms of red flags. Patient was agreeable to this care plan. Jasvir Lisa APRN.DATA TECHNICAL LEAD Allergies As of Date: 04/02/2024 (No Known Allergies) Date Reviewed: 04/02/2024 Reviewed by: Ammy Hamm LPN - Fully Assessed Reason for Visit: Tick Bite [Other] Cmt: Middle of back, and Left side area, 4-5 days tick removed, redness, swelling Primary Visit Diagnosis:Puncture wound [T14.8XXA] Order(s):doxycycline hyclate (VIBRAMYCIN) 100 mg capsuleTake 1 capsule (100 mg) by mouth two times a day for 14 days.Disp: 28 capsuleRfl: 0 Prescriptions as of 04/02/2024 - doxycycline hyclate (VIBRAMYCIN) 100 mg capsule Take 1 capsule (100 mg) by mouth two times a day for 14 days. 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 Medications Discontinued During This Encounter Prescriptions - diazepam (VALIUM) 5 mg tablet (Discontinued) Take 1 tab orally 30 minutes prior to procedure and may repeat x1. - DULoxetine (CYMBALTA) 30 mg capsule (Discontinued) Take 1 capsule by mouth once daily. - VITAMIN B COMPLEX ORAL (Discontinued) Take by mouth. Encounter Status:Closed by JASVIR LISA on 04/02/24 [facility] MR hip LT wo santino MR hip LT wo con [facility] Main [place] [id number] MRI Report Signed Patient: Sofia Calvin MR#: [id number] 10 : 1955 Acct:[id number] Age/Sex: 68 / M ADM Date: 04/01/24 Loc: MR Room: Type: [facility] CLI Attending Dr: Lukas Tolliver PA-C Copies to: Lukas Tolliver PA-C Ordering Provider: Lukas Tolliver PA-C Date of Service: 04/01/24 MR/MR hip LT wo con: M25.552 EXAMINATION: MRI OF THE LEFT HIP CLINICAL HISTORY: Generalized hip pain. No known injury. COMPARISON: None TECHNIQUE: Multiecho, multiplanar imaging was performed with use of an extremity coil. No contrast was administered. FINDINGS: Bones/Joint: Minimal joint effusion. No evidence of avascular necrosis, bone marrow edema or fracture. Mild degenerative change. Left pubic rami appear unremarkable. Labrum: No definite abnormality. Muscles: Normal Soft tissues: Normal Pelvic contents: No acute process. MR/MR hip LT wo con IMPRESSION: MILD DEGENERATIVE CHANGES OF THE LEFT HIP WITH MINIMAL JOINT EFFUSION. NO FRACTURE, BONE CONTUSION OR AVASCULAR NECROSIS IS SEEN. Impression dictated by: Christian Obrien Jr., D.OKaycee04/01/2024 4:19 PM Dictation Location: [place] [address] Transcribed By: [facility] 04/01/24 161 Dictated By: Christian Obrien Jr, DO 04/01/241615 Signed By: 04/01/241618 [facility] Magnetic resonance imaging r eportOrdered By: Christian Obrien on 04-01-2024 Study report [facility] [place] [address] MRI Report Signed Patient: Sofia Calvin MR#: [id number] : 1955 Acct:[id number] Age/Sex: 68 / M ADM Date: 4 Loc: MR Room: Type: [facility] CLI Attending Dr: Lukas Tolliver PA-C Copies to: Lukas Tolliver PA-C~ Ordering Provider: Lukas Tolliver PA-C Date of Service: 04/01/24 MR/MR hip LT wo con: M25.552 EXAMINATION: MRI OF THE LEFT HIP CLINICAL HISTORY: Generalized hip pain. No known injury. COMPARISON: None TECHNIQUE: Multiecho, multiplanar imaging was performed with use of an extremity coil. No contrast was administered. FINDINGS: Bones/Joint: Minimal joint effusion. No evidence of avascular necrosis, bone marrow edema or fracture. Mild degenerative change. Left pubic rami appear unremarkable. Labrum: No definite abnormality. Muscles: Normal Soft tissues: Normal Pelvic contents: No acute process. MR/MR hip LT wo con IMPRESSION: MILD DEGENERATIVE CHANGES OF THE LEFT HIP WITH MINIMAL JOINT EFFUSION. NO FRACTURE, BONE CONTUSION OR AVASCULAR NECROSIS IS SEEN. Impression dictated by: Christian Obrien Jr., D.OKaycee04/01/2024 4:19 PM Dictation Location: [place] [address] Transcribed By: [facility] 04/01/241618 Dictated By: Christian Obrien Jr, DO 04/01/241615 Signed By: 04/01/241618 [facility] XR hip LT min 2V(w/wo pelvis )*on 01-30-2024 XR hip LT min 2V(w/wo pelvis)* [facility] Main [place] [address] [place] [address] XRay Report Signed Patient: Sofia Calvin MR#: [id number] 10 : 1955 Acct:[id number] Age/Sex: 68 / M ADM Date: 01/30/24 Loc: XD Room: Type: [facility] Attending Dr: Adiel Sandoval MD Copies to: Adiel Sandoval MD Ordering Provider: Adiel Sandoval MD Date of Service: 01/30/24 XR/XR hip LT min 2V(w/wo pelvis)*: M16.12 - Unilateral primary osteoarthritis, left hip ([id number]) XR/XR shoulder RT min 2V*: M25.511 - Pain in right shoulder CLINICAL HISTORY: Chronic right shoulder pain and pain at the left hip. No injury. RIGHT SHOULDER - 3 views COMPARISON: None AP, Y and Grashey views were obtained. There is no evidence of fracture or dislocation. There is mild hypertrophic degenerative change at the acromioclavicular joint and sclerosis at the greater tuberosity. There is moderate to severe degenerative change at the glenohumeral joint with narrowing of the joint space and large enthesophyte at the inferior margin of the humeral head. There are no significant soft tissue abnormalities. XR/XR shoulder RT min 2V* IMPRESSION: DEGENERATIVE CHANGES, DESCRIBED LEFT HIP COMPARISON: CT pelvis 11/16/2014 AP and lateral views were obtained. No fracture or dislocation is identified. The hip joint space is maintained. There is no significant hypertrophy. The SI joints are intact. There are postoperative changes involving the lower imaged lumbar spine. No soft tissue anomalies are seen. IMPRESSION: NO ACUTE BONY FINDINGS. Impression dictated by: Cathy Sharp M.D.01/30/2024 3:25 PM Dictation Location: [place] [address] Transcribed By: [facility] 01/30/24 1525 Dictated By: Cathy Sharp MD 01/30/24 1520 Signed By: 01/30/24 1525 [facility] XR lumbar spine 6V w bending on 12-18-2023 XR lumbar spine 6V w bending [facility] Main [place] [address] [place] [address] XRay Report Signed Patient: Sofia Calvin MR#: [id number] 10 : 1955 Acct:[id number] Age/Sex: 68 / M ADM Date: 12/18/23 Loc: XD Room: Type: [facility] Attending Dr: Nisreen Flores APRN Copies to: Nisreen Flores APRN Ordering Provider: Nisreen Flores APRN Date of Service: 12/18/23 XR/XR lumbar spine 6V w bending: M48.062 - Spinal stenosis, lumbar region with neurogenic ... LUMBAR SPINE - 6 views CLINICAL HISTORY: Injury mowing the lawn. Low back numbness radiating down left leg. COMPARISON: Lumbar spine 02/10/2023. FINDINGS: Posterior hardware fixation L4-S1 without radiographic complication. No pathological motion is seen on flexion or extension views. Scattered endplate and facet joint degenerative changes with moderate disc space narrowing and mild retrolisthesis of L3 on L4 grossly similar to the prior study. XR/XR lumbar spine 6V w bending IMPRESSION: NO EVIDENCE OF HARDWARE COMPLICATION. NO SIGNIFICANT CHANGE IN LUMBAR SPINE FINDINGS. Impression dictated by: Christian Obrien Jr., D.OKaycee12/18/2023 12:58 PM Dictation Location: [facility]--12 Transcribed By: [facility] 12/18/23 1258 Dictated By: Christian Obrien Jr, DO 12/18/23 1257 Signed By: 12/18/23 1258 [facility] XR lumbar spine 6V w bending on 02-11-2023 XR lumbar spine 6V w bending [facility] [employer] Other XR lumbar spine 6V w bending [facility] [employer] Other XR lumbar spine 6V w bending [address] [place] [address] [employer] Other XR lumbar spine 6V [place] [address] [employer] Other XR lumbar spine 6V w bending XRay Report [employer] Other XR lumbar spine 6V w bending Signed [employer] Other XR lumbar spine 6V w bending Patient: Sofia Calvin MR#: [id number] [employer] Other XR lumbar spine 6V w bending 10 [employer] Other XR lumbar spine 6V w bending : 1955 Acct:[id number] [employer] Other XR lumbar spine 6V w bending Age/Sex: 67 / M ADM Date: 02/11/23 [employer] Other XR lumbar spine 6V w bending Loc: XD Room: Type: [facility] [employer] Other XR lumbar spine 6V w bending Attending Dr: Jaqueline HENAOC [employer] Other XR lumbar spine 6V w bending Copies to: EARLENE DumontC [employer] Other XR lumbar spine 6V w bending Ordering Provider: Jaqueline Shoemaker NP-C [employer] Other XR lumbar spine 6V w bending Date of Service: 02/11/23 [employer] Other XR lumbar spine 6V w bending XR/XR lumbar spine 6V w bending: Other intervertebral disc degeneration, [employer] Other XR lumbar spine 6V w bending lumbar region [employer] Other XR lumbar spine 6V w bending LUMBAR SPINE WITH FLEXION, EXTENSION AND BENDING VIEWS- 6 views: [employer] Other XR lumbar spine 6V w bending CLINICAL HISTORY: Low back and lower extremity pain. Previous lumbar fusion. [employer] Other XR lumbar spine 6V w bending COMPARISON: 05/01/2015 [employer] Other XR lumbar spine 6V w bending AP, lateral, both oblique and AP and lateral coned-down views of the lumbosacral junction were [employer] Other XR lumbar spine 6V w bending obtained. There is prior laminectomy and fusion with posterior rods, pedicle screws and interbody [employer] Other XR lumbar spine 6V w bending fusion devices extending from L4 through S1. There is subtle angulation involving one of the S1 [employer] Other XR lumbar spine 6V w bending pedicle screws on the lateral images where fractured hardware is difficult to exclude. No developing [employer] Other XR lumbar spine 6V w bending compression deformities are noted. There is still stairstep retrolisthesis of L2 on L3 and L3 on L4. [employer] Other XR lumbar spine 6V w bending This does not change with extension though there is improvement at L2-3 with flexion. There is [employer] Other XR lumbar spine 6V w bending slight disc space narrowing at L2-3 and L3-4. There is endplates spurring. Lower lumbar facet [employer] Other XR lumbar spine 6V w bending hypertrophy is seen. The SI joints are intact. No paraspinal soft tissue abnormalities are present. [employer] Other XR lumbar spine 6V w bending XR/XR lumbar spine 6V w bending [employer] Other XR lumbar spine 6V w bending IMPRESSION: [employer] Other XR lumbar spine 6V w bending POSTOPERATIVE AND DEGENERATIVE CHANGES, DESCRIBED. [employer] Other XR lumbar spine 6V w bending Impression dictated by: Cathy Sharp M.D.02/11/2023 1:08 PM [employer] Other XR lumbar spine 6V w bending Dictation Location: [place] [address] [employer] Other XR lumbar spine 6V w bending Transcribed By: [facility] 02/11/23 1308 [employer] Other XR lumbar spine 6V w bending Dictated By: Cathy Sharp MD 02/11/23 [facility] [employer] Other XR lumbar spine 6V w bending Signed By: [employer] Other XR lumbar spine 6V w bending 02/11/23 [facility] [employer] Other Vital Signs Date Time Vital Sign Value Performing Clinician Facility 10-05-2024 13:25-0400 Body weight 100.9 kg Bruno Cruz MD Work Phone: [facility] 10-05-2024 13:25-0400 Diastolic blood pressure 77 mm[Hg] Bruno Cruz MD Work Phone: [facility] 10-05-2024 13:25-0400 Systolic blood pressure 170 mm[Hg] Bruno Cruz MD Work Phone: [facility] 08-26-2024 13:17-0400 Body weight 102.4 kg PHYSICIAN NO [facility] 08-13-2024 08:40-0400 Body temperature 97.7 [degF] PHYSICIAN NO [facility] 08-13-2024 08:40-0400 Diastolic blood pressure 82 mm[Hg] PHYSICIAN NO [facility] 08-13-2024 08:40-0400 Heart rate 76 /min PHYSICIAN NO [facility] 08-13-2024 08:40-0400 Respiratory rate 18 /min PHYSICIAN NO [facility] 08-13-2024 08:40-0400 SaO2% (BldA) [Mass fraction] 92 % PHYSICIAN NO [facility] 08-13-2024 08:40-0400 Systolic blood pressure 126 mm[Hg] PHYSICIAN NO [facility] 08-12-2024 03:20-0400 Inhaled oxygen flow rate 1 L/min PHYSICIAN NO [facility] 08-11-2024 17:30-0400 Body height 185.42 cm PHYSICIAN NO [facility] 08-11-2024 17:30-0400 Body weight 103 kg PHYSICIAN NO [facility] 07-22-2024 11:04-0500 Body height 185.42 cm PHYSICIAN NO [facility] 07-22-2024 11:04-0500 Body mass index (BMI) [Ratio] 30.5 kg/m2 PHYSICIAN NO [facility] 07-22-2024 11:04-0500 Body weight 105 kg PHYSICIAN NO [facility] 06-22-2024 09:26-0500 Body height 185.42 cm PHYSICIAN NO [facility] 06-22-2024 09:26-0500 Body mass index (BMI) [Ratio] 30.2 kg/m2 PHYSICIAN NO [facility] 06-22-2024 09:26-0500 Body weight 103.8 kg PHYSICIAN NO [facility] 05-28-2024 10:04-0500 Body mass index (BMI) [Ratio] 30.31 kg/m2 Ferdinand Daily APRN.CNP Work Phone: [facility] 05-28-2024 10:04-0500 Body temperature 98.91 [degF] Ferdinand Daily APRN.CNP Work Phone: [facility] 05-28-2024 10:04-0500 Body weight 104.2 kg Ferdinand Daily SALON COORDINATOR.DATA TECHNICAL LEAD Work Phone: [facility] 05-28-2024 10:04-0500 Diastolic blood pressure 58 mm[Hg] Ferdinand Daily SALON COORDINATOR.DATA TECHNICAL LEAD Work Phone: [facility] 05-28-2024 10:04-0500 Heart rate 92 /min Ferdinand Daily SALON COORDINATOR.DATA TECHNICAL LEAD Work Phone: [facility] 05-28-2024 10:04-0500 Respiratory rate 18 /min Ferdinand Daily SALON COORDINATOR.DATA TECHNICAL LEAD Work Phone: [facility] 05-28-2024 10:04-0500 SaO2% (BldA) [Mass fraction] 97 % Ferdinand Daily SALON COORDINATOR.DATA TECHNICAL LEAD Work Phone: [facility] 05-28-2024 10:04-0500 Systolic blood pressure 92 mm[Hg] Ferdinand Daily SALON COORDINATOR.DATA TECHNICAL LEAD Work Phone: [facility] 05-13-2024 10:52-0500 Diastolic blood pressure 77 mm[Hg] PHYSICIAN NO [facility] 05-13-2024 10:52-0500 Heart rate 81 /min PHYSICIAN NO [facility] 05-13-2024 10:52-0500 Respiratory rate 16 /min PHYSICIAN NO [facility] 05-13-2024 10:52-0500 SaO2% (BldA) [Mass fraction] 98 % PHYSICIAN NO [facility] 05-13-2024 10:52-0500 Systolic blood pressure 116 mm[Hg] PHYSICIAN NO [facility] 05-13-2024 10:49-0500 Body height 185.42 cm PHYSICIAN NO [facility] 05-13-2024 10:49-0500 Body weight 99.79 kg PHYSICIAN NO [facility] 05-06-2024 13:05-0500 Diastolic blood pressure 80 mm[Hg] PHYSICIAN NO [facility] 05-06-2024 13:05-0500 Heart rate 101 /min PHYSICIAN NO [facility] 05-06-2024 13:05-0500 SaO2% (BldA) [Mass fraction] 96 % PHYSICIAN NO [facility] 05-06-2024 13:05-0500 Systolic blood pressure 132 mm[Hg] PHYSICIAN NO [facility] 04-20-2024 11:07-0500 Body height 185.42 cm PHYSICIAN NO [facility] 04-20-2024 11:07-0500 Body mass index (BMI) [Ratio] 28.2 kg/m2 PHYSICIAN NO [facility] 04-20-2024 11:07-0500 Body weight 97 kg PHYSICIAN NO [facility] 04-02-2024 11:38-0500 Body mass index (BMI) [Ratio] 30.25 kg/m2 Jasvir Lisa APRN.DATA TECHNICAL LEAD Work Phone: [facility] 04-02-2024 11:38-0500 Body temperature 97.2 [degF] Jasvir Lisa APRN.DATA TECHNICAL LEAD Work Phone: [facility] 04-02-2024 11:38-0500 Body weight 104 kg Jasvir Lisa APRN.DATA TECHNICAL LEAD Work Phone: [facility] 04-02-2024 11:38-0500 Diastolic blood pressure 77 mm[Hg] Jasvir Lisa APRN.DATA TECHNICAL LEAD Work Phone: [facility] 04-02-2024 11:38-0500 Heart rate 70 /min Jasvir Lisa APRN.DATA TECHNICAL LEAD Work Phone: [facility] 04-02-2024 11:38-0500 Respiratory rate 20 /min Jasvir Lisa APRN.DATA TECHNICAL LEAD Work Phone: [facility] 04-02-2024 11:38-0500 SaO2% (BldA) [Mass fraction] 98 % Jasvir Lisa APRN.DATA TECHNICAL LEAD Work Phone: [facility] 04-02-2024 11:38-0500 Systolic blood pressure 123 mm[Hg] Jasvir Lisa APRN.DATA TECHNICAL LEAD Work Phone: [facility] 04-01-2024 10:33-0500 Diastolic blood pressure 72 mm[Hg] PHYSICIAN NO [facility] 04-01-2024 10:33-0500 Heart rate 74 /min PHYSICIAN NO [facility] 04-01-2024 10:33-0500 Respiratory rate 16 /min PHYSICIAN NO [facility] 04-01-2024 10:33-0500 SaO2% (BldA) [Mass fraction] 98 % PHYSICIAN NO [facility] 04-01-2024 10:33-0500 Systolic blood pressure 124 mm[Hg] PHYSICIAN NO [facility] 04-01-2024 10:32-0500 Body height 185.42 cm PHYSICIAN NO [facility] 04-01-2024 10:32-0500 Body weight 97.52 kg PHYSICIAN NO [facility] 02-18-2024 13:35-0400 Body height 185.42 cm PHYSICIAN NO [facility] 02-18-2024 13:35-0400 Diastolic blood pressure 78 mm[Hg] PHYSICIAN NO [facility] 02-18-2024 13:35-0400 Heart rate 70 /min PHYSICIAN NO [facility] 02-18-2024 13:35-0400 SaO2% (BldA) [Mass fraction] 98 % PHYSICIAN NO [facility] 02-18-2024 13:35-0400 Systolic blood pressure 156 mm[Hg] PHYSICIAN NO [facility] 02-11-2024 10:21-0400 Diastolic blood pressure 86 mm[Hg] PHYSICIAN NO [facility] 02-11-2024 10:21-0400 Heart rate 67 /min PHYSICIAN NO [facility] 02-11-2024 10:21-0400 Respiratory rate 16 /min PHYSICIAN NO [facility] 02-11-2024 10:21-0400 SaO2% (BldA) [Mass fraction] 100 % PHYSICIAN NO [facility] 02-11-2024 10:21-0400 Systolic blood pressure 156 mm[Hg] PHYSICIAN NO [facility] 02-11-2024 08:30-0400 Body height 185.42 cm PHYSICIAN NO [facility] 02-11-2024 08:30-0400 Body weight 97.52 kg PHYSICIAN NO [facility] 01-30-2024 09:33-0400 Body weight 99.33 kg PHYSICIAN NO [facility] 01-30-2024 09:33-0400 Diastolic blood pressure 70 mm[Hg] PHYSICIAN NO [facility] 01-30-2024 09:33-0400 Heart rate 68 /min PHYSICIAN NO [facility] 01-30-2024 09:33-0400 SaO2% (BldA) [Mass fraction] 99 % PHYSICIAN NO [facility] 01-30-2024 09:33-0400 Systolic blood pressure 110 mm[Hg] PHYSICIAN NO [facility] 12-18-2023 10:30-0400 Body weight 101.15 kg PHYSICIAN NO [facility] 10-09-2023 12:54-0400 Body height 184.15 cm PHYSICIAN NO [facility] 10-09-2023 12:54-0400 Body mass index (BMI) [Ratio] 29.2 kg/m2 PHYSICIAN NO [facility] 10-09-2023 12:54-0400 Body weight 99 kg PHYSICIAN NO [facility] 10-01-2023 13:05-0400 Body weight 101.37 kg [facility] 10-01-2023 13:05-0400 Diastolic blood pressure 80 mm[Hg] [facility] 10-01-2023 13:05-0400 Heart rate 62 /min [facility] 10-01-2023 13:05-0400 SaO2% (BldA) [Mass fraction] 97 % [facility] 10-01-2023 13:05-0400 Systolic blood pressure 142 mm[Hg] [facility] 09-17-2023 13:24-0400 Body weight 102.73 kg [facility] 09-17-2023 13:24-0400 Diastolic blood pressure 80 mm[Hg] [facility] 09-17-2023 13:24-0400 Heart rate 74 /min [facility] 09-17-2023 13:24-0400 SaO2% (BldA) [Mass fraction] 99 % [facility] 09-17-2023 13:24-0400 Systolic blood pressure 140 mm[Hg] [facility] 09-09-2023 08:20-0400 Body height 184.15 cm [facility] 09-09-2023 08:20-0400 Body mass index (BMI) [Ratio] 30.3 kg/m2 [facility] 09-09-2023 08:20-0400 Body weight 102.96 kg [facility] 07-22-2023 08:24-0500 Body height 184.15 cm [facility] 07-22-2023 08:24-0500 Body mass index (BMI) [Ratio] 31 kg/m2 [facility] 07-22-2023 08:24-0500 Body weight 105.23 kg [facility] 02-11-2023 09:00-0400 Body height 184.15 cm Jaqueline Shoemaker Other [employer] Other 02-11-2023 09:00-0400 Body mass index (BMI) [Ratio] 31.16 kg/m2 Jaqueline Shoemaker Other [employer] Other 02-11-2023 09:00-0400 Body weight 105.69 kg Jaqueline Shoemaker Other [employer] Other 02-11-2023 09:00-0400 Diastolic blood pressure 82 mm[Hg] Jaqueline Shoemaker Other [employer] Other 02-11-2023 09:00-0400 Systolic blood pressure 140 mm[Hg] Jaqueline Shoemaker Other [employer] Other Encounters Encounter Date Encounter Type Care Provider Facility Start: 12-22-2024 ambulatory Fabiana Webb y:[facility] Start: 11-29-2024 End: 11-29-[address] Fabiana Sharma MD Work Phone: -Ultrasound [facility] Start: 11-29-2024 End: 11-29-[address] Fabiana Sharma MD -Ultrasound [facility] Work Phone: Start: 11-29-2024 End: 11-29-2024 ambulatory Fabiana Sharma Facility:[facility] Start: 11-23-2024 End: 11-23-[address] Fabiana Sharma MD Work Phone: -Cat Scan [facility] Start: 11-23-2024 End: 11-23-[address] Fabiana Sharma MD -[facility] [facility] Work Phone: Start: 11-23-2024 End: 11-23-2024 ambulatory Fabiana Sharma Facility:[facility] Start: 11-16-2024 End: 11-16-2024 ambulatory Bruno Cruz Facility:[facility] Start: 10-07-2024 End: 10-07-[address] Fabiana Sharma MD Work Phone: [facility] Work Phone: Start: 10-07-2024 End: 10-07-[address] Fab[facility] -[facility] Start: 10-07-2024 End: 10-07-2024 ambulatory Fabiana Sharma Facility:[facility] Start: 10-05-2024 End: 10-05-2024 ambulatory NON STAFF [facility] Work Phone: Start: 10-05-2024 End: 10-05-2024 Patient encounter procedure Bruno Cruz MD Work Phone: [facility] Work Phone: Start: 10-05-2024 End: 10-05-2024 Patient encounter procedure Bruno Cruz MD Work Phone: [facility] Work Phone: Start: 10-05-2024 End: 10-05-2024 ambulatory NON STAFF [facility] Work Phone: Start: 09-20-2024 End: 09-20-2024 Subsequent hospital visit by physician Xr [facility] Work Phone: Radiology Comment on above: Acute cough [R05.1] Start: 09-20-2024 End: 09-20-2024 ambulatory HORTENCIA Liane GILBERT Facility:[facility] Start: 09-01-2024 End: 09-01-[address] Fabiana Sharma MD Work Phone: [facility] Work Phone: Start: 09-01-2024 End: 09-01-[address] Fabiana Sharma MD -Radiology, [place] Work Phone: Start: 09-01-2024 End: 09-01-2024 ambulatory Fabiana Sharma Facility:[facility] Start: 08-26-2024 End: 08-26-2024 ambulatory PHYSICIAN NO [facility] Work Phone: Start: 08-26-2024 End: 08-26-2024 Patient encounter procedure PHYSICIAN NO [facility] Physician [facility] Work Phone: Start: 08-12-2024 Non-patient / Non-visit PHYSICIAN NO [facility] Physician [facility] Work Phone: Start: 08-11-2024 Non-patient / Non-visit PHYSICIAN NO [facility] Physician [facility] Work Phone: Start: 08-11-2024 End: 08-13-2024 Evaluation and management of inpatient PHYSICIAN NO [facility] Work Phone: Start: 07-28-2024 End: 07-28-2024 Patient encounter procedure PHYSICIAN NO [facility]-Lab [facility] [place] Work Phone: Start: 07-28-2024 End: 07-28-2024 ambulatory PHYSICIAN NO [facility] Work Phone: Start: 07-22-2024 End: 07-22-2024 ambulatory PHYSICIAN NO [facility] Work Phone: Start: 07-22-2024 End: 07-22-2024 Patient encounter procedure PHYSICIAN NO [facility] Work Phone: Start: 07-21-2024 End: 07-21-2024 Patient encounter procedure PHYSICIAN NO [facility] Work Phone: Start: 07-21-2024 End: 07-21-2024 ambulatory PHYSICIAN NO [facility] Work Phone: Start: 07-21-2024 Encounter for preprocedural laboratory examination [facility] Start: 06-22-2024 End: 06-22-2024 Patient encounter procedure PHYSICIAN NO [facility] Work Phone: Start: 06-19-2024 End: 06-19-[address] Fabiana Sharma MD -Ultrasound, [facility] Work Phone: Start: 06-19-2024 End: 06-19-2024 ambulatory Fabiana Sharma Facility:[facility] Start: 06-10-2024 End: 06-10-[address] Fab[facility] Sh[facility] MD -[facility] Start: 06-10-2024 End: 06-10-2024 Patient encounter procedure PHYSICIAN NO [facility] Work Phone: Start: 06-10-2024 End: 06-10-2024 ambulatory PHYSICIAN NO [facility] Work Phone: Start: 06-10-2024 End: 06-10-2024 ambulatory Fabiana Sharma Facility:[facility] Start: 05-28-2024 End: 05-28-2024 ambulatory HORTENCIAGERONIMO PARRISHDUBA Facility:[facility] Start: 05-28-2024 End: 05-28-2024 Patient encounter procedure Ferdinand Daily APRN.DATA TECHNICAL LEAD Work Phone: [facility] Comment on above: Lower resp. tract in fection (Primary Dx); Pneumonia exposure Start: 05-15-2024 End: 05-15-2024 ambulatory [facility] Start: 05-15-2024 End: 05-15-2024 [facility] Start: 05-13-2024 End: 05-13-2024 Patient encounter procedure PHYSICIAN NO [facility]-MRI [facility] [place] Work Phone: Start: 05-13-2024 End: 05-13-2024 ambulatory Bruno Cruz Facility:[facility] Start: 05-06-2024 End: 05-06-2024 Patient encounter procedure PHYSICIAN NO [facility] Work Phone: Start: 04-20-2024 End: 04-20-2024 Patient encounter procedure PHYSICIAN NO [facility] Work Phone: Start: 04-20-2024 End: 04-20-2024 ambulatory Bruno E Cruz Facility:[facility] Start: 04-02-2024 End: 04-02-2024 ambulatory HORTENCIA KORDUBA Facility:[facility] Start: 04-02-2024 End: 04-02-2024 Patient encounter procedure Jasvir Lisa APRN.DATA TECHNICAL LEAD Work Phone: [facility] Comment on above: Puncture wound (Prim dennys Dx) Start: 04-01-2024 End: 04-01-2024 Patient encounter procedure PHYSICIAN NO [facility] [place] Work Phone: Start: 04-01-2024 End: 04-01-2024 ambulatory PHYSICIAN NO [facility] Work Phone: Start: 02-24-2024 End: 02-24-2024 Patient encounter procedure PHYSICIAN NO [facility] Work Phone: Start: 02-24-2024 Non-patient / Non-visit PHYSICIAN NO [facility] Work Phone: Start: 02-18-2024 End: 02-18-2024 Patient encounter procedure PHYSICIAN NO [facility] Work Phone: Start: 02-11-2024 End: 02-11-2024 Admission to same day surgery center PHYSICIAN NO [facility] Work Phone: Start: 02-11-2024 End: 02-11-2024 ambulatory PHYSICIAN NO [facility] Work Phone: Start: 01-30-2024 End: 01-30-2024 Patient encounter procedure PHYSICIAN NO [facility]-XRay [facility] [place] Work Phone: Start: 01-30-2024 End: 01-30-2024 ambulatory PHYSICIAN NO [facility] Work Phone: Start: 01-30-2024 End: 01-30-2024 ambulatory PHYSICIAN NO [facility] Work Phone: Start: 01-30-2024 End: 01-30-2024 Patient encounter procedure PHYSICIAN NO [facility] [place] Work Phone: Start: 12-18-2023 End: 12-18-2023 ambulatory PHYSICIAN NO [facility] Work Phone: Start: 12-18-2023 End: 12-18-2023 Patient encounter procedure PHYSICIAN NO [facility] Work Phone: Start: 12-18-2023 End: 12-18-2023 Patient encounter procedure PHYSICIAN NO [facility]-XRay [facility] [place] Work Phone: Start: 12-18-2023 End: 12-18-2023 ambulatory PHYSICIAN NO [facility] Work Phone: Start: 10-09-2023 End: 10-09-2023 Patient encounter procedure PHYSICIAN NO [facility] Work Phone: Start: 10-01-2023 End: 10-01-2023 ambulatory [facility] Work Phone: Start: 10-01-2023 End: 10-01-2023 Patient encounter procedure [facility] Phys[facility] Work Phone: Start: 09-23-2023 Non-patient / Non-visit [facility] Phys[facility] Work Phone: Start: 09-17-2023 End: 09-17-2023 ambulatory [facility] Work Phone: Start: 09-17-2023 End: 09-17-2023 Patient encounter procedure [facility] Work Phone: Start: 09-09-2023 End: 09-09-2023 ambulatory [facility] Work Phone: Start: 09-09-2023 End: 09-09-2023 Patient encounter procedure [facility] Phys[facility] Work Phone: Start: 07-22-2023 End: 07-22-2023 Patient encounter procedure [facility] Work Phone: Start: 06-12-2023 End: 06-12-2023 ambulatory Jaqueline Shoemaker Other [facility] [employer] Other Start: 06-12-2023 Telephone encounter Jaqueline Shoemaker [facility] Start: 02-11-2023 Office outpatient ne w 45 minutes Jaqueline Shoemaker [facility] Start: 02-11-2023 End: 02-11-2023 ambulatory NON STAFF [facility] Work Phone: Start: 02-11-2023 End: 02-11-2023 Patient encounter procedure [facility]-XRay [facility] Work Phone: Procedures Date Procedure Procedure Detail Performing Clinician Start: 11-29-[address] Fabiana Sharma MD Work Phone: Start: 11-23-[address] Fabiana ventura MD Work Phone: Start: 10-07-2024 Prostate specific an tigen measurement Dr. Fabiana Sharma MD Work Phone: Comment on above: This test was perfor med using the [employer] tPSA method. Measured values of a patient sample can vary depending on the testing procedure used. PSA values determined on patient samples by different testing procedures cannot be used interchangeably. If there is a change in PSA assays while monitoring therapy, sequential testing should be performed to confirm baseline values. Start: 10-05-2024 X-ray of lumbar spin e, two or three views Bruno Cruz MD Work Phone: Start: 09-20-2024 Radiologic exam ches t 2 views Hortencia Gilbert PA-C Work Phone: Start: 09-01-2024 XR knee, [address] Lidia Sharma MD Work Phone: Start: 08-12-2024 X-ray of lumbar spin e, two or three views PHYSICIAN NO FAMILY Start: 08-11-2024 OR Lumbar Laminectom y w/Fix Implants (Not Applicable) PHYSICIAN NO FAMILY Start: 08-11-2024 X-ray of lumbar spin e, two or three views PHYSICIAN NO FAMILY Start: 07-21-2024 Antibody screen Bruno renee Comment on above: Order Comment: Date of Surgery: [id number] Result Comment: PERF ORMED BY: [facility] [address] [place] [address] PATHOLOGIST MOWER SHARPENER GEO WELCH M.D. Start: 06-19-2024 US scan of thyroid Dr. Fabiana Sharma MD Work Phone: Start: 06-10-[address] Fabiana Sharma MD Work Phone: Start: 06-10-2024 Dual energy X-ray absorptiometry PHYSICIAN NO FAMILY Start: 05-15-2024 Lipid 1996 panel - S stephanie or Plasma Ferdinand Daily APRN.DATA TECHNICAL LEAD Work Phone: Start: 05-13-2024 MR lumbar spine wo con PHYSICIAN NO FAMILY Start: 04-20-2024 X-ray of lumbar spin e, six views including bending views PHYSICIAN NO FAMILY Start: 04-01-2024 MRI of left hip PHYSICI AN NO FAMILY Start: 02-11-2024 Procedure on hip PHYSIC KRISH NO FAMILY Start: 01-30-2024 Plain X-ray of left hip PHYSICIAN NO FAMILY Start: 01-30-2024 Plain X-ray of right shoulder PHYSICIAN NO FAMILY Start: 12-18-2023 X-ray of lumbar spin e, six views including bending views PHYSICIAN NO FAMILY Start: 02-11-2023 X-ray of lumbar spin e, six views including bending views Start: 02-05-2013 Jose Lisa APRN.CNP Work Phone: Start: 12-04-2012 Lipid 1996 panel - S stephanie or Plasma Jasvir Lisa APRN.CNP Work Phone: Plan of Treatment Date Care Activity Detail Author Start: 09-22-2031 RSV Vaccine (1 - 1-dose 75+ series) RSV Vaccine (1 - 1-dose 75+ series) [facility] Start: 05-15-2029 Lipid panel Lipid Screening [facility] Start: 05-15-2027 Diabetes Screening Diabetes Screening [facility] Start: 10-05-2024 Patient referral [facility] Work Phone: Start: 08-13-2024 End: 08-13-2024 [facility] Start: 08-11-2024 Hospital admission [facility] Start: 08-11-2024 Computer Assisted Procedure of Trunk Region Computer Assisted Procedure of Trunk Region [facility] Start: 08-11-2024 Fusion of 2 or more Lumbar Vertebral Joints with Interbody Fusion Device, Posterior Approach, Anterior Column, Open Approach Fusion of 2 or more Lumbar Vertebral Joints with Interbody Fusion Device, Posterior Approach, Anterior Column, Open Approach [facility] Start: 08-11-2024 Introduction of Recombinant Bone Morphogenetic Protein into Joints, Open Approach Introduction of Recombinant Bone Morphogenetic Protein into Joints, Open Approach [facility] Start: 08-11-2024 Release Lumbar Nerve, Open Approach Release Lumbar Nerve, Open Approach [facility] Start: 08-11-2024 Removal of Internal Fixation Device from Lumbar Vertebra, Open Approach Removal of Internal Fixation Device from Lumbar Vertebra, Open Approach [facility] Start: 05-26-2024 Advance Directive Discussion Advance Directive Discussion [facility] Start: 02-11-2024 [facility] Start: 01-25-2024 Covid-19 Vaccine ( season) Covid-19 Vaccine ( season) [facility] Start: 01-25-2024 Influenza vaccination Influenza Vaccine (#1) [facility] Start: 12-18-2023 X-ray of lumbar spine, six views including bending views XR lumbar spine 6V w bending [facility] Start: 09-09-2023 Patient referral [facility] Work Phone: Start: 05-26-2023 Advance Directive Discussion Advance Directive Discussion [facility] Start: 12-04-2017 Lipid panel Lipid Screening [facility] Start: 12-05-2015 Diabetes Screening Diabetes Screening [facility] Start: 02-05-2014 Screening for malignant neoplasm of colon [facility] Start: 09-22-2011 Prostate specific antigen measurement Prostate Cancer Screening Discussion [facility] Start: 2006 Shingrix Vaccine (1 of 2) Shingrix Vaccine (1 of 2) [facility] Start: 2001 Screening for malignant neoplasm of colon [facility] Start: 09-22-1975 Pneumococcal Vaccine: 50+ (1 of 2 - PCV) Pneumococcal Vaccine: 50+ (1 of 2 - PCV) [facility] Start: 09-22-1975 Urine microalbumin profile DTaP,Tdap,Td Vaccine (1 - Tdap) [facility] Start: 1974 Anxiety Screening Anxiety Screening [facility] Start: 1974 Depression Screening Depression Screening [facility] Start: 1962 Pneumococcal Vaccine: 65+ (1 of 2 - PCV) Pneumococcal Vaccine: 65+ (1 of 2 - PCV) [facility] Start: 1956 Abdominal aortic aneurysm screening Abdominal Aortic Aneurysm Screening [facility] Anion gap measurement [facility] Basophils [#/volume] in Blood by Automated count [facility] Basophils/100 leukoc ytes in Blood by Automated count [facility] Cotinine [Mass/volum e] in Serum or Plasma [facility] Eosinophils/100 leukocytes in Blood by Automated count [facility] Erythrocyte distribu tion width [Ratio] by Automated count [facility] Erythrocytes [#/volu me] in Blood [facility] Hematocrit [Volume Fraction] of Blood [facility] Hemoglobin [Mass/vol ume] in Blood [facility] Leukocytes [#/volume ] corrected for nucleated erythrocytes in Blood by Automated coun [facility] Leukocytes [#/volume ] in Blood [facility] Lymphocytes [#/volum e] in Blood by Automated count [facility] Lymphocytes/100 leukocytes in Blood by Automated count [facility] MCH [Entitic mass] b y Automated count [facility] MCHC [Mass/volume] b y Automated count [facility] MCV [Entitic volume] by Automated count [facility] Monocytes [#/volume] in Blood by Automated count [facility] Monocytes/100 leukoc ytes in Blood by Automated count [facility] Neutrophils [#/volum e] in Blood by Automated count [facility] Neutrophils/100 leukocytes in Blood by Automated count [facility] Nicotine [Mass/volum e] in Serum or Plasma [facility] Nucleated erythrocyt es [Presence] in Blood by Automated count [facility] Patient Education [facility] Work Phone: Patient referral [facility] Work Phone: Platelet mean volume [Entitic volume] in Blood by Automated count [facility] Platelets [#/volume] in Blood [facility] XR Hip - left 2 Views [facility] XR Lumbar spine 2 or 3 Views [facility] XR Shoulder - right Views [facility] Payers Date Payer Category Payer Medicare [id number] 2024 Medicare (Managed Care) [employer] D[employer]ARE [id number] 2024 Private Health Insurance [facility] [id number] 2023 Self-pay 2023 Medicare [id number] 2023 Private Health Insurance [id number] 1955 Unknown [id number] 2.16.840.1.352210.3.579.2. 903 1955 Unknown [id number] 2.16.840.1.209375.3.579.2. 902 Private Health Insurance [employer] [id number] Unknown [id number] 2.16.840.1.014116.3.579.2. 531 Unknown [id number] 2.16.840.1.755776.3.579.2. 531 Unknown [id number] 2.16.840.1.190256.3.579.2. 531 Unknown [id number] 2.16.840.1.318377.3.579.2. 531 Unknown [id number] 2.16.840.1.553153.3.579.2. 531 Unknown [id number] 2.16.840.1.422117.3.579.2. 531 Unknown [id number] 2.16.840.1.878669.3.579.2. 531 Unknown [id number] 2.16.840.1.149290.3.579.2. 531 Unknown [id number] 2.16.840.1.677350.3.579.2. 531 Unknown [id number] 2.16.840.1.752870.3.579.2. 531 Unknown [id number] 2.16.840.1.543682.3.579.2. 531 Unknown [id number] 2.16.840.1.703268.3.579.2. 531 Unknown [id number] 2.16.840.1.134438.3.579.2. 462 Unknown [id number] 2.16.840.1.638261.3.579.2. 462 Unknown [id number] 2.16.840.1.334576.3.579.2. 462 Unknown [id number] 2.16.840.1.941255.3.579.2. 462 Unknown [id number] 2.16.840.1.117858.3.579.2. 462 Unknown [id number] 2.16.840.1.216332.3.579.2. 462 Unknown [id number] 2.16.840.1.027456.3.579.2. 462 Social History Date Type Detail Facility Start: 04-02-2024 End: 05-28-2024 Sex Assigned At [facility] Work Phone: Start: 1955 Sex Assigned At Male F [facility] Start: 07-22-2023 End: 08-11-2024 Tobacco smoking status NHIS Smoker (finding) [facility] Start: 04-02-2024 Tobacco smoking stat us IAIS Smokes tobacco daily [facility] Start: 04-02-2024 End: 05-28-2024 Alcoholic beverage intake Not Asked [facility] Start: 04-02-2024 End: 05-28-2024 History of Social function [facility] Start: 04-02-2024 Tobacco Comment On e-cig now [facility] Start: 1955 Sex assigned at Not on file C [facility] Start: 04-02-2024 End: 06-11-2024 Sex Patient sex unknown (finding) [facility] Start: 07-22-2024 End: 10-06-2024 Sex Male (finding) [facility] Work Phone: Medical Equipment Procedure Code Equipment Code Equipment Origin al Text Equipment Identifier Dates Spinal fusion gr aft kit [id number] FDA Start: 08-11-2024 Bone-screw inter nal spinal fixation system, non-sterile [id number] FDA Start: 08-11-2024 Bone-screw inter nal spinal fixation system, non-sterile [id number] FDA Start: 08-11-2024 Bone-screw inter nal spinal fixation system, non-sterile [id number] FDA Start: 08-11-2024 Bone-screw inter nal spinal fixation system, non-sterile [id number] FDA Start: 08-11-2024 Polymeric spinal fusion cage, non-sterile ()[id number] FDA Start: 08-11-2024 Polymeric spinal fusion cage, non-sterile ()[id number] FDA Start: 08-11-2024 Bone-screw inter nal spinal fixation system, non-sterile [id number] FDA Start: 08-11-2024 Goals Date Patient Goal Desired Activity /State Functional Status Date Assessment Result Facility 08-13-2024 Functional status Patient is Pro gressing Toward Baseline [facility] Work Phone: 07-18-2014 Are you deaf, or do you have serious difficulty hearing No 07/18/2014 8:45 AM Princess Gabriel LPN No [facility] 07-18-2014 Are you blind, or do you have serious difficulty seeing, even when wearing glasses No 07/18/2014 8:45 AM Princess Gabriel LPN No [facility] 07-18-2014 Do you have serious difficulty walking or climbing stairs Yes 07/18/2014 8:45 AM Princess Gabriel LPN Yes [facility] 07-18-2014 Do you have difficul ty dressing or bathing Yes 07/18/2014 8:45 AM Princess Gabriel LPN Yes [facility] 07-18-2014 Because of a physica l, mental, or emotional condition, do you have difficulty doing errands alone such as visiting a physician's office or shopping No 07/18/2014 8:45 AM Princess Gabriel LPN No [facility] Mental Status Date Assessment Result Facility 08-13-2024 Cognitive function Cognitive Sta tus Patient at Baseline [facility] Work Phone: 07-18-2014 Because of a physica l, mental, or emotional condition, do you have serious difficulty concentrating, remembering, or making decisions No 07/18/2014 8:45 AM Princess Gabriel LPN No [facility] Clinical Notes 02-11-2023 to 11-29-2024 Mylene Kwan [facility] 09/20/2024 9:50 AM EDT Note Date & Type Note Facility 11-29-2024 Radiology Diagnostic study note [facility] Imaging Services [address] [place] [address] [id number] Abdomen Limited MR#: [id number] Acct: [id number] Name: SOFIA CALVIN Rep #: [id number] : 1955 M 69 From: Wei Carranza MD PCP: Dr. Fabiana Sharma MD Status: RE G CLI Study:Abdomen Limited Date of Exam: 12/17 Exam# [id number] Ordering Dr: Fabiana Sharma MD PROCEDURE: ABDOMEN LIMITED 11/29/2024 REASON FOR EXAM: DIAGNOSIS OF LIVER CYST COMPARISON: None FINDINGS: Liver: Grossly normal size and echotexture. There is a 2.1 cm 2.1 cm 2.7 cm septated cyst in the right lobe of the liver. Gallbladder: Surgically absent. Common bile duct: Normal measuring 3.8 mm. . Pancreas: Visualized portions are unremarkable. The distal body and tail are obscured by bowel gas. Other: Visualized portions of the right kidney are unremarkable. No right upperquadrant ascites. US/Abdomen Limited IMPRESSION: Septated cyst in the right lobe of the liver. Status post cholecystectomy. Reading Location: [place] [address] CC: Dr. Fabiana Sharma MD ~ Senior Medical Director: Signed [facility] 11-23-2024 Radiology Diagnostic study note [facility] Imaging Services [address] [place], [place] [id number] Low Dose CT Lung Screening MR#: [id number] Acct: [id number] Name: SOFIA CALVIN Rep #: [id number] : 1955 M 69 From: Demarco Wu MD PCP: Dr. Fabiana Sharma MD Status: RE G CLI Study:Low Dose CT Lung Screening Date of Exam : 11/23/24 Exam# [id number] Ordering Dr: Fabiana Sharma MD PROCEDURE: LOW DOSE CT LUNG SCREENING 11/23/2024 REASON FOR EXAM: SMOKER 1 pack per day smoker times 55 years, quit 3 years ago TECHNIQUE: LOW DOSE CT LUNG SCREENING Coronal and Sagittal reconstruction series were provided. One or more dose reduction techniques were used (e.g., Automated exposure control, adjustment of the mA and/or kV according to patient size, use of iterative reconstruction technique). REFERENCE LINK: [facility] Lung-RADS RADIATION DOSE SUMMARY: CTDlvol: 3.18 mGy DLP: 109.20 mGycm COMPARISON: None FINDINGS: Lung windows show underlying emphysema with nonspecific pleural thickening in both apices in both hemithoraces. Emphysematous blebs noted throughout both lung hall, there is evidence of chronic bronchitisbut no organized infiltrate or effusion. No suspicious noncalcified mass or nodule. Soft tissue windows show a normal-appearing thyroid gland. No suspicious adenopathy. There are calcified coronary vessels. The thoracic aorta tapers normally. Bony structures show degenerative change. Limited cuts of the upper abdomen show a low-density lesion within the liver which is incompletely evaluated. CT/Low Dose CT Lung Screening IMPRESSION: Underlying emphysema without evidence of a superimposed process or suspicious noncalcified mass or nodule Coronary artery calcification (CAC) is is present Lung-RADS Category: 2 BENIGN (BASED ON IMAGING FEATURES OR INDOLENT BEHAVIOR). RECOMMEND 12-MONTH SCREENING LDCT. Other Significant Findings: Incompletely evaluated low-density lesion within theliver, likely a cyst but further evaluation of this is needed with either ultrasound or contrasted CT or MRI Reading Location: [facility] CC: Dr. Fabiana Sharma MD ~ Senior Medical Director: Signed [facility] 09-20-2024 History of Present illness Narrative Radiology Service Progress Note PATIENT NAME: Sofia Calvin DATE OF SERVICE: September 20, 2024 TIME: 9:47 AM PATIENT IDENTITY VERIFICATION COMPLETED USING TWO (2) IDENTIFIERS: Name and Date of confirmed by patient verbally. FALL SCREENING: Has the patient had 2 falls in the last year or 1 fall with injury or currently using an Ambulatory Assistive Device (Walker, Cane, Wheelchair, Crutches, etc.)? No PATIENT GENDER DATA: Assigned male at PATIENT RELEVANT IMPLANT DATA REVIEWED: Not Applicable PATIENT PRESENTS WITH AN IMPLANTABLE OR ATTACHED BRAND SALES MANAGER: No RADIOLOGY DEPARTMENT: General X-ray: Exam(s) Completed: Chest X-Ray PERIPHERAL IV DATA: Not applicable SIGNED BY: Oscar Merritt September 20, 2024 9:47 AM documented in this encounter [facility] 09-20-2024 Note HNO ID: [id number] Author: MYLENE KWAN Tech Service: ? Author Type: Technologist Type: Progress Notes Filed: 09/20/2024 09:54 Note Text: Radiology Service Progress Note PATIENT NAME: Sofia Calvin DATE OF SERVICE: September 20, 2024 TIME: 9:47 AM PATIENT IDENTITY VERIFICATION COMPLETED USING TWO (2) IDENTIFIERS: Name and Date of confirmed by patient verbally. FALL SCREENING: Has the patient had 2 falls in the last year or 1 fall with injury or currently using an Ambulatory Assistive Device (Walker, Cane, Wheelchair, Crutches, etc.)? No PATIENT GENDER DATA: Assigned male at PATIENT RELEVANT IMPLANT DATA REVIEWED: Not Applicable PATIENT PRESENTS WITH AN IMPLANTABLE OR ATTACHED BRAND SALES MANAGER: No RADIOLOGY DEPARTMENT: General X-ray: Exam(s) Completed: Chest X-Ray PERIPHERAL IV DATA: Not applicable SIGNED BY: Oscar Merritt September 20, 2024 9:47 AM [facility] 09-20-2024 Note HNO ID: [id number] Author: HORTENCIA GILBERT PA-C Service: ? Author Type: Physician Advertising Columnist Type: Progress Notes Filed: 09/20/2024 10:22 Note Text: SUBJECTIVE Sofia Calvin is a 68 year old male who presents with 1 week of symptoms that are stable. Symptoms include: Fever (>=100.4F): No or Chills: yes Cough: Yes Shortness of breath: No or Difficulty breathing: No Fatigue: Yes Muscle aches: Yes Headache: Yes New loss of smell or taste: No Sore throat: No Nasal congestion: Yes or Rhinorrhea: No Nausea: Yes or Vomiting: No Diarrhea: No PAST MEDICAL HISTORY Diagnosis Date Peripheral neuropathy No past surgical history on file. ALLERGIES Patient has no known allergies. MEDICATIONS gabapentin (NEURONTIN) 300 mg capsule Take 300 mg by mouth two times a day. No family history on file. Social History Tobacco Use Smoking status: Every Day Tobacco comments: On e-cig now OTC meds/remedies that patient has tried: Mucinex daily antihistamine. High risk category assessment He reports that he has been smoking. He does not have any smokeless tobacco history on file. OBJECTIVE BP 122/86 (BP Site: Left Arm, BP Position: Sitting, BP Cuff Size: Regular Adult) Pulse 95 Temp 36.7 ?C (98.1 ?F) (Tympanic) Resp 18 Wt 102.4 kg (225 lb 12 oz) SpO2 96% GENERAL: well appearing, alert, in no acute distress HEENT: no conjunctival injection, pupils equal, moist mucous membranes, oropharynx clear without erythema, and TMs clear bilaterally PULMONARY: breathing comfortably on room air , no coughing noted, no wheezing noted, and lungs CTA bilaterally Heart: RRR Last XR Chest - Impression Only XR CHEST 2V FRONTAL/LAT Exam End: 09/20/2024 9:54 AM (Final result) Impression: IMPRESSION: No acute radiographic abnormality. ... ASSESSMENT/PLAN: 1. Acute cough - ICD9: 786.2, ICD10: R05.1 (primary diagnosis) - XR CHEST 2V FRONTAL/LAT 2. Acute non-recurrent sinusitis, unspecified location - ICD9: 461.9, ICD10: J01.90 - Will begin treatment with Doxycycline - Supportive care with plenty of fluids, rest, and analgesia prn. - flonase nasal spray for congestion and daily antihistamine Patient declines COVID/flu and RSV testing here Hortencia Gilbert PA-C This note was partially generated using [employer] voice recognition system, any errors noted are unintentional and are due to this technology. Patient declines printed AVS. Prefers to look at AVS in [employer]. s History and Record Review External record(s) reviewed: prior outpatient record. Differential Diagnoses - uri/sinusitis is more likely for the following reason(s): suggested by HANDP - pneumonia is less likely for the following reason(s): no evidence on imaging Disposition The patient was discharged. OTC Medications were advised: Procedures [facility] 09-02-2024 Radiology Diagnostic study note [facility] Imaging Services [address] [place] [address] Knee 3 Views MR#: [id number] Acct: [id number] Name: SOFIA CALVIN Rep #: [id number] : 1955 M 68 From: Elsie Lamas MD PCP: Dr. Fabiana Sharma MD Status: RE G CLI Study:Knee 3 Views Date of Exam: 5 Exam# [id number] Ordering Dr: Fabiana Sharma MD PROCEDURE: KNEE 3 VIEWS 09/01/2024 REASON FOR EXAM: PAIN, FALL TECHNIQUE: 3 view(s) of the right knee COMPARISON: None available FINDINGS: Bones: No acute displaced fracture or dislocation. Joints: Joint spaces are preserved. Effusion: No joint effusion Soft tissues: No overlying soft tissue swelling Other: None RAD/Knee 3 Views IMPRESSION: No acute displaced fracture or dislocation. Reading Location: [id number] CC: Dr. Fabiana Sharma MD ~ Senior Medical Director: Signed [facility] 08-13-2024 Discharge summary Note Date/Time August 13, 2024 7:59am [facility] [address] [place] [address] Discharge Summary Signed Patient: Sofia Calvin MR#: [id number] : 1955 Acct:[id number] Age/Sex: 68 / M Adm Date: 5 Loc: Room: [address] [place] [address]: Bruno Cruz MD Copies to: Bruno Cruz MD NO FAMILY PHYSICIAN~ Providers Date of Admission: 08/11/24 Date of Discharge: 08/13/24 Discharging Provider: Bruno Cruz Primary Care Provider: PHYSICIAN NO FAMILY Consults: 08/11/24 17:06 Consult to Occupational Therapy Routine Comment: Physician Instructions: Consult to OT for:: Evaluation and Treat Consult to Physical Therapy Routine Comment: Physician Instructions: Consult to PT for:: Evaluation and Treat Discharge Diagnosis (1) Neurogenic claudication due to lumbar spinal stenosis: Final Diagnosis Final Discharge Diagnosis: Lumbar stenosis with neurogenic claudication Summary Hospital Course Hospital course: This is a gentleman with spondylolisthesis and stenosis at L2-3 and L3-4 above this level of L4-5 fusion. He had neurogenic claudication refractory to conservative care can no longer tolerate the symptoms and desired elective decompression. He underwent uncomplicated L2-3 L3-4 posterior lumbar interbody fusion with revision of L4-5 hardware. In immediate postoperative period he is noted to have some element of right quadricep weakness. It is improved a littlebit over a 24-hour. His back pain is under reasonable control he is definitely better with regard to neurogenic claudication. At this point he will be discharged to home. I would like him to start his prednisone taper on Friday. Full home-going instructions have been given he is aware of his limitations and has been urged to use a walker. Time Spent with Patient Time spent providing/coordinating discharge services (# min): 30 Surgeries and Procedures Operation Date: 08/11/24 10:45 Actual Procedures p OR L2-3 L3-4 PLIF Revision of Hardware Nerve Monitoring(Not Applicable) - Josefina Cruz MD Discharge Plan Discharge Plan Patient Disposition: Home Activity: Ambulate as Tolerated Additional Instructions: DISCHARGE INSTRUCTIONS FOR POSTERIOR LUMBAR INTERBODY FUSION OR POSTERIOR LUMBARFUSION DIET-regular home diet ACTIVITY - Wear brace when sitting and standing and out of bed - Activity as tolerated; No lifting over 15 pounds - Stairs as tolerated - Walk as much as possible -May drive when not taking narcotics -May shower Friday. When taking first shower leave dressing on complete shower remove dressing dry the wound and apply small amount of antibiotic ointment to the wound 1 time daily thereafter - Keep incision clean and dry -Start taking prednisone on Friday and complete the 12-day course OTHER - Call your provider's office for any fever, chills, nausea, vomiting, headache,numbness, or tingling. - Call your providers office and make an appointment to see your provider in 2 weeks. Use ice as needed for back spasm 20 minutes every 1-2 hours Use the prednisone provided if the leg pain returns to a significant degree after surgery. If it does not do not use the prednisone Instructions: Know your Meds Prescriptions: New cyclobenzaprine 10 mg tablet 10 mg PO TID PRN (Reason: back spasms) Qty: 40 0RF cephalexin 500 mg capsule 500 mg PO TID Qty: 15 0RF oxycodone 5 mg tablet 5 - 10 mg PO Q6H PRN (Reason: Pain) 8 Days Qty: 50 0RF prednisone 10 mg tablets,dose pack 1 dose pk PO PER PKG DIR Qty: 30 0RF Rx Instructions: take 4 tabs for 3 days then take 3 tabs for 3 days then take 2 tabs for 3 days then take 1 tab for 3 days Continued ibuprofen 800 mg tablet 800 mg PO Q8HR PRN (Reason: pain) Follow Up: Bruno Cruz MD [Active Staff] - 08/26/24 1:00 pm Exam Physical Exam Vital Signs: Temp Pulse Resp BP Pulse Ox O2 Del Method O2 Flow Rate 97.7 F 64 16 136/82 92 L Room Air 1 08/13/24 03:44 08/13/24 03:44 08/13/24 03:44 08/13/24 03:44 08/13/24 03:44 08/13/24 03:44 08/12/24 03:20 Narrative: Wound dry Not able to elicit quad weakness Alert and cooperative sitting comfortable in bed Patient is able to transfer to get up out of the chair and walk relatively well,since the quadriceps are asymmetric, right weaker wearing brace appropriately Diagnostic Studies Completed and Pending Studies Pending studies at discharge: 08/13/24 10:00 Basic Metabolic Panel [CHEM] IN AM Complete Blood Count Auto Diff IN AM Documented By: Bruno Cruz MD 08/13/24 075 Signed By: <Electronically signed by MD Bruno Crzu> 08/13/24 0759 [facility] Work Phone: 1(540) 728-120403-21-2025 Progress note Author Bruno Cruz [facility] Note Date/Time August 13, 2024 7:5 1am [facility] [address] [place] [address] Neurosurgery Progress Note Signed Patient: Sofia Calvin MR#: [id number] : 1955 Acct:[id number] Age/Sex: 68 / M Adm Date: 5 Loc: 4N Room: [address] [place] [address] Type: ADM IN Attending Dr: Bruno Cruz MD Copies to: ~ Date of Service: 08/13/2024 Subjective Subjective HPI: Patient has no leg pain today. He feels as though his right quad is a bit weak and will give out. Back is relatively uncomfortable Exam Physical Exam Vital Signs: Temp Pulse Resp BP Pulse Ox O2 Del Method O2 Flow Rate 97.7 F 64 16 136/82 92 L Room Air 1 08/13/24 03:44 08/13/24 03:44 08/13/24 03:44 08/13/24 03:44 08/13/24 03:44 08/13/24 03:44 08/12/24 03:20 Narrative: Wound dry Not able to elicit quad weakness Alert and cooperative sitting comfortable in bed Patient is able to transfer to get up out of the chair and walk relatively well,since the quadriceps are asymmetric, right weaker wearing brace appropriately Assessment/Plan Assessment/Plan (1) Neurogenic claudication due to lumbar spinal stenosis: Plan Postoperative day #2 the patient wants to go home and I think is able to. I have urged him to use a walker continuously for the next 7 or 10 days as he determines the strength in the right quad and how he functions with that. Following could be a big problem. Patient is happy with his overall result. Hewe will follow-up in 2 weeks in the office. Full home-going instructions have been given. Documented By: Bruno Cruz MD 08/13/24 0745 Signed By: <Electronically signed by MD rBuno Cruz> 08/13/24 0756 [facility] Work Phone: 1(973) 333-188003-21-[address] [address] Discharge Summary Signed Patient: Sofia Calvin MR#: [id number] : 1955 Acct:[id number] Age/Sex: 68 / M Adm Date: 5 Loc: 4 Room: [address] [place] [address]: Bruno Cruz MD Copies to: Bruno Cruz MD NO FAMILY PHYSICIAN~ Providers Date of Admission: 08/11/24 Date of Discharge: 08/13/24 Discharging Provider: Bruno Cruz Primary Care Provider: PHYSICIAN NO FAMILY Consults: 08/11/24 17:06 Consult to Occupational Therapy Routine Comment: Physician Instructions: Consult to OT for:: Evaluation and Treat Consult to Physical Therapy Routine Comment: Physician Instructions: Consult to PT for:: Evaluation and Treat Discharge Diagnosis (1) Neurogenic claudication due to lumbar spinal stenosis: Final Diagnosis Final Discharge Diagnosis: Lumbar stenosis with neurogenic claudication Summary Hospital Course Hospital course: This is a gentleman with spondylolisthesis and stenosis at L2-3 and L3-4 above this level of L4-5 fusion. He had neurogenic claudication refractory to conservative care can no longer tolerate the symptoms and desired elective decompression. He underwent uncomplicated L2-3 L3-4 posterior lumbar interbody fusion with revision of L4-5 hardware. In immediate postoperative period he is noted to have some element of right quadricep weakness. It is improved a littlebit over a 24-hour. His back pain isunder reasonable control he is definitely better with regard to neurogenic claudication. At this point he will be discharged to home. I would like him to start his prednisone taper on Friday. Full home-going instructions have been given he is aware of his limitations and has been urged to use a walker. Time Spent with Patient Time spent providing/coordinating discharge services (# min): 30 Surgeries and Procedures Operation Date: 08/11/24 10:45 Actual Procedures p OR L2-3 L3-4 PLIF Revision of Hardware Nerve Monitoring(Not Applicable) - Josefina Cruz MD Discharge Plan Discharge Plan Patient Disposition: Home Activity: Ambulate as Tolerated Additional Instructions: DISCHARGE INSTRUCTIONS FOR POSTERIOR LUMBAR INTERBODY FUSION OR POSTERIOR LUMBARFUSION DIET-regular home diet ACTIVITY - Wear brace when sitting and standing and out of bed - Activity as tolerated; No lifting over 15 pounds - Stairs as tolerated - Walk as much as possible -May drive when not taking narcotics -May shower Friday. When taking first shower leave dressing on complete shower remove dressing dry the wound and apply small amount of antibiotic ointment to the wound 1 time daily thereafter - Keep incision clean and dry -Start taking prednisone on Friday and complete the 12-day course OTHER - Call your provider's office for any fever, chills, nausea, vomiting, headache,numbness, or tingling. - Call your providers office and make an appointment to see your provider in 2 weeks. Use ice as needed for back spasm 20 minutes every 1-2 hours Use the prednisone provided if the leg pain returns to a significant degree after surgery. If it does not do not use the prednisone Instructions: Know your Meds Prescriptions: New cyclobenzaprine 10 mg tablet 10 mg PO TID PRN (Reason: back spasms) Qty: 40 0RF cephalexin 500 mg capsule 500 mg PO TID Qty: 15 0RF oxycodone 5 mg tablet 5 - 10 mg PO Q6H PRN (Reason: Pain) 8 Days Qty: 50 0RF prednisone 10 mg tablets,dose pack 1 dose pk PO PER PKG DIR Qty: 30 0RF Rx Instructions: take 4 tabs for 3 days then take 3 tabs for 3 days then take 2 tabs for 3 days then take 1 tab for 3 days Continued ibuprofen 800 mg tablet 800 mg PO Q8HR PRN (Reason: pain) Follow Up: Bruno Cruz MD [Active Staff] - 08/26/24 1:00 pm Exam Physical Exam Vital Signs: Temp Pulse Resp BP Pulse Ox O2 Del Method O2 Flow Rate 97.7 F 64 16 136/82 92 L Room Air 1 08/13/24 03:44 08/13/24 03:44 08/13/24 03:44 08/13/24 03:44 08/13/24 03:44 08/13/24 03:44 08/12/24 03:20 Narrative: Wound dry Not able to elicit quad weakness Alert and cooperative sitting comfortable in bed Patient is able to transfer to get up out of the chair and walk relatively well,since the quadriceps are asymmetric, right weaker wearing brace appropriately Diagnostic Studies Completed and Pending Studies Pending studies at discharge: 08/13/24 10:00 Basic Metabolic Panel [CHEM] IN AM Complete Blood Count Auto Diff IN AM Documented By: Bruno Cruz MD 08/13/24756 Signed By: 08/13/24 0759 [facility]03-21-[place] [address] Neurosurgery Progress Note Signed Patient: Sofia Calvin MR#: [id number] : 1955 Acct:[id number] Age/Sex: 68 / M Adm Date: 5 Loc: Room: [address] [place] [address] Type: ADM IN Attending Dr: Bruno Cruz MD Copies to: ~ Date of Service: 08/13/2024 Subjective Subjective HPI: Patient has no leg pain today. He feels as though his right quad is a bit weak and will give out. Back is relatively uncomfortable Exam Physical Exam Vital Signs: Temp Pulse Resp BP Pulse Ox O2 Del Method O2 Flow Rate 97.7 F 64 16 136/82 92 L Room Air 1 08/13/24 03:44 08/13/24 03:44 08/13/24 03:44 08/13/24 03:44 08/13/24 03:44 08/13/24 03:44 08/12/24 03:20 Narrative: Wound dry Not able to elicit quad weakness Alert and cooperative sitting comfortable in bed Patient is able to transfer to get up out of the chair and walk relatively well,since the quadriceps are asymmetric, right weaker wearing brace appropriately Assessment/Plan Assessment/Plan (1) Neurogenic claudication due to lumbar spinal stenosis: Plan Postoperative day #2 the patient wants to go home and I think is able to. I have urged him to use awalker continuously for the next 7 or 10 days as he determines the strength in the right quad and how he functions with that. Following could be a big problem. Patient is happy with his overall result. Hewe will follow-up in 2 weeks in the office. Full home-going instructions have been given. Documented By: Bruno Cruz MD 08/13/24 0745 Signed By: 08/13/24 0751 [facility]03-20-2025 Progress note Author Bruno Cruz [facility] Note Date/Time August 12, 2024 7:5 9am [facility] [address] [place] [address] Neurosurgery Progress Note Signed Patient: Sofia Calvin MR#: [id number] : 1955 Acct:[id number] Age/Sex: 68 / M Adm Date: 5 Loc: 4N Room: [address] [place] [address] Type: ADM IN Attending Dr: Bruno Cruz MD Copies to: ~ Date of Service: 08/12/2024 Subjective Subjective HPI: Patient has no leg pain today. He did have his leg give out when he tried to stand up yesterday. Back is relatively uncomfortable Exam Physical Exam Vital Signs: Temp Pulse Resp BP Pulse Ox O2 Del Method O2 Flow Rate 97.6 F 73 16 111/76 92 L Nasal Cannula 1 08/12/24 03:20 08/12/24 03:20 08/12/24 03:20 08/12/24 03:20 08/12/24 03:20 08/12/24 03:20 08/12/24 03:20 Narrative: Wound dry Lower extremity at baseline regarding strength Alert and cooperative sitting comfortable in bed Objective Lab Results Most Recent Labs: 08/12/24 05:29: Corrected WBC 18.0 H, Uncorrected WBC Count 18.0 H, RBC 4.87, Hgb 13.8, Hct 41.4, MCV 84.9, MCH 28.3, MCHC 33.4, RDW 14.4, Plt Count 266, MPV 8.1, Neut % (Auto) 83.0, Lymph % (Auto) 11.4, [place] % (Auto) 4.5, Eos % (Auto) 0.0, Baso % (Auto) 1.1, Nucleat RBC Rel Count 0.1, Neut # (Auto) 14.9 H, Lymph #(Auto) 2.1, [place] # (Auto) 0.8, Eos # (Auto) 0.0, Baso # (Auto) 0.2 08/12/24 05:27: PHA Creatinine Clear 101.55, Sodium 138, Potassium 4.3, [id number], Carbon Dioxide 25.0, Anion Gap 11.3, BUN 17, Creatinine 0.89, Est GFR (CKD-EPI) > 60.0, Glucose 155 H, Calcium 8.4 L Assessment/Plan Assessment/Plan (1) Neurogenic claudication due to lumbar spinal stenosis: Plan Postoperative day #1 we will increase activity. Because he has a smoking history I will start a nicotine patch. Patient is doing well day 1 Documented By: Bruno Cruz MD 08/12/24 0756 Signed By: <Electronically signed by MD Bruno Cruz> 08/12/24 0759 [facility] Work Phone: 1(122) 182-987103-20-2025 [place] [address] Neurosurgery Progress Note Signed Patient: Sofia Calvin MR#: [id number] : 1955 Acct:[id number] Age/Sex: 68 / M Adm Date: 5 Loc: 4 Room: [address] [place] [address] Type: ADM IN Attending Dr: Bruno Cruz MD Copies to: ~ Date of Service: 08/12/2024 Subjective Subjective HPI: Patient has no leg pain today. He did have his leg give out when he tried to stand up yesterday. Back is relatively uncomfortable Exam Physical Exam Vital Signs: Temp Pulse Resp BP Pulse Ox O2 Del Method O2 Flow Rate 97.6 F 73 16 111/76 92 L Nasal Cannula 1 08/12/24 03:20 08/12/24 03:20 08/12/24 03:20 08/12/24 03:20 08/12/24 03:20 08/12/24 03:20 08/12/24 03:20 Narrative: Wound dry Lower extremity at baseline regarding strength Alert and cooperative sitting comfortable in bed Objective Lab Results Most Recent Labs: 08/12/24 05:29: Corrected WBC 18.0 H, Uncorrected WBC Count 18.0 H, RBC 4.87, Hgb 13.8, Hct 41.4, MCV 84.9, MCH 28.3, MCHC 33.4, RDW 14.4, Plt Count 266, MPV 8.1, Neut % (Auto) 83.0, Lymph % (Auto) 11.4, [place] % (Auto) 4.5, Eos % (Auto) 0.0, Baso % (Auto) 1.1, Nucleat RBC Rel Count 0.1, Neut # (Auto) 14.9 H, Lymph #(Auto) 2.1, [place] # (Auto) 0.8, Eos # (Auto) 0.0, Baso # (Auto) 0.2 08/12/24 05:27: PHA Creatinine Clear 101.55, Sodium 138, Potassium 4.3, Agxbyrmz536, Carbon Ryfyjqn59.0, Anion Gap 11.3, BUN 17, Creatinine 0.89, Est GFR (CKD-EPI) > 60.0, Glucose 155 H, Calcium 8.4 L Assessment/Plan Assessment/Plan (1) Neurogenic claudication due to lumbar spinal stenosis: Plan Postoperative day #1 we will increase activity. Because he has a smoking history I will start a nicotine patch. Patient is doing well day 1 Documented By: Bruno Cruz MD 08/12/24 0756 Signed By: 08/12/24 0759 [facility]02-27-2025 Evaluation note* Diagnosis Onset Date Resolution Status Admit Date 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 acute July 22, 2024 11:00am Neurogenic claudication due to lumbar spinal stenosis acute July 22, 2024 11:00am Neurogenic claudication due to lumbar spinal stenosis acute July 8:36am 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 acute August 1:09pm Neurogenic claudication due to lumbar spinal stenosis acute August 1:09pm 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 acute October 05, 2024 12:56pm Neurogenic claudication due to lumbar spinal stenosis acute October 05, 2024 12:56pm [facility] Work Phone: 1(894) [phone] Evaluation note* Diagnosis Onset Date Resolution Status Admit Date 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 acute May 272024 9:18am Neurogenic claudication due to lumbar spinal stenosis acute May 272024 9:18am 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 acute July 22, 2024 11:00am Neurogenic claudication due to lumbar spinal stenosis acute July 22, 2024 11:00am Neurogenic claudication due to lumbar spinal stenosis acute July 8:36am [facility] Work Phone: 1([phone]) 615-916501-03-2025 NoteHNO ID: [id number] Author: FERDINAND DAILY APRN.DATA TECHNICAL LEAD Service: ? Author Type: Nurse Practitioner Type: Progress Notes Filed: 05/28/2024 10:29 Note Text: Subjective HPI HPI Sofia Calvin is a 68 year old male who presents today for CC of cough, chest congestion. This started 1 week ago. Has tried otc medication for relief. Symptoms are worsened by nothing. Risk factors with pneumonia currently. .Patient presents with: Cough: With chest congestion x 1 week PAST MEDICAL HISTORY Diagnosis Date Peripheral neuropathy No past surgical history on file. ALLERGIES Patient has no known allergies. MEDICATIONS gabapentin (NEURONTIN) 300 mg capsule Take 300 mg by mouth two times a day. No family history on file. Social History Tobacco Use Smoking status: Every Day Tobacco comments: On e-cig now Review of Systems Constitutional: Negative for fever. HENT: Positive for congestion. Negative for ear pain, nosebleeds and sore throat. Respiratory: Positive for cough. Negative for shortness of breath and wheezing. Musculoskeletal: Negative for neck pain. Objective Blood pressure 92/58, pulse 92, temperature 37.2 ?C (98.9 ?F), temperature source Left Tympanic, resp. rate 18, weight 104.2 kg (229 lb 11.5 oz), SpO2 97%. Physical Exam Constitutional: General: He is not in acute distress. Appearance: He is not toxic-appearing or diaphoretic. HENT: Head: Normocephalic and atraumatic. Cardiovascular: Rate and Rhythm: Normal rate and regular rhythm. Heart sounds: Normal heart sounds, S1 normal and S2 normal. Pulmonary: Effort: Pulmonary effort is normal. Breath sounds: Normal breath sounds. Lymphadenopathy: Cervical: No cervical adenopathy. Right cervical: No superficial cervical adenopathy. Left cervical: No superficial cervical adenopathy. Neurological: Mental Status: He is alert and oriented to person, place, and time. Gait: Gait is intact. ASSESSMENT/PLAN: 1. Lower resp. tract infection - ICD9: 519.8, ICD10: J22 (primary diagnosis) - Discussed supportive care - Limit exposure to smoke and other inhaled irritants - Discussed possible red flags and when to seek medical attention - Follow up in 3-5 days or sooner if no better or worse -If you experience chest pain/shortness of breath go to ER - DOXYCYCLINE MONOHYDRATE 100 MG TABLET 2. Pneumonia exposure - ICD9: V01.89, ICD10: Z20.89 - DOXYCYCLINE MONOHYDRATE 100 MG TABLET Ferdinand Daily APRN.[facility]01-03-2025 History of Present illness Narrative* Ferdinand Daily APRN.DATA TECHNICAL LEAD - 05/28/2024 10:09 AM EST Subjective HPI HPI Sofia Calvin is a 68 year old male who presents today for CC of cough, chest congestion. Thisstarted 1 week ago. Has tried otc medication for relief. Symptoms are worsened by nothing. Risk factors with pneumonia currently. .Patient presents with: Cough: With chest congestion x 1 week PAST MEDICAL HISTORY Diagnosis Date Peripheral neuropathy No past surgical history on file. ALLERGIES Patient has no known allergies. MEDICATIONS gabapentin (NEURONTIN) 300 mg capsule Take 300 mg by mouth two times a day. No family history on file. Social History Tobacco Use Smoking status: Every Day Tobacco comments: On e-cig now Review of Systems Constitutional: Negative for fever. HENT: Positive for congestion. Negative for ear pain, nosebleeds and sore throat. Respiratory: Positive for cough. Negative for shortness of breath and wheezing. Musculoskeletal: Negative for neck pain. Objective Blood pressure 92/58, pulse 92, temperature 37.2 C (98.9 F), temperature source Left Tympanic, resp. rate 18, weight 104.2 kg (229 lb 11.5 oz), SpO2 97%. Physical Exam Constitutional: General: He is not in acute distress. Appearance: He is not toxic-appearing or diaphoretic. HENT: Head: Normocephalic and atraumatic. Cardiovascular: Rate and Rhythm: Normal rate and regular rhythm. Heart sounds: Normal heart sounds, S1 normal and S2 normal. Pulmonary: Effort: Pulmonary effort is normal. Breath sounds: Normal breath sounds. Lymphadenopathy: Cervical: No cervical adenopathy. Right cervical: No superficial cervical adenopathy. Left cervical: No superficial cervical adenopathy. Neurological: Mental Status: He is alert and oriented to person, place, and time. Gait: Gait is intact. ASSESSMENT/PLAN: 1. Lower resp. tract infection - ICD9: 519.8, ICD10: J22 (primary diagnosis) - Discussed supportive care - Limit exposure to smoke and other inhaled irritants - Discussed possible red flags and when to seek medical attention - Follow up in 3-5 days or sooner if no better or worse -If you experience chest pain/shortness of breath go to ER - DOXYCYCLINE MONOHYDRATE 100 MG TABLET 2. Pneumonia exposure - ICD9: V01.89, ICD10: Z20.89 - DOXYCYCLINE MONOHYDRATE 100 MG TABLET Ferdinand Daily APRN.DATA TECHNICAL LEAD documented [facility] NoteHMS HISTORY AND PHYSICAL -- [facility] Patient Name: Sofia Calvin : 1955 MR #: [id number] Admit Date: 05/15/2024 Physicians: Pura, Physician (Family); Nancy Frausto,* (Referring) Sofia Calvin is a 68 y.o. male patient with history of chronic tobacco use disorder presented to [facility] on 05/15/2024 as a direct transfer from [place] ED where he presented with some chest pain and epigastric pain. Patient states he was in his usual state of health until this morning when he woke up with some epigastric pain radiating across his upper abdomen. Denies any nausea or vomiting. Assessment and plan Acute diverticulitis Leukocytosis CT imaging shows diffuse colonic diverticulosis with mild fat stranding around some of the proximal diverticula likely representing mild diverticulitis Start patient on IV ceftriaxone and IV Flagyl Start patient on clear liquid diet IV Toradol as needed for pain control IV Zofran for nausea Continue bowel regimen Chronic tobacco use disorder Advised patient against smoking. More than 5 minutes spent on talking about smoking cessation Patient declined nicotine Cough COPD Not on any inhalers at home CT imaging consistent with mild right mid and lower lung subsegmental atelectasis Mucinex for chest congestion Continue DuoNebs every 6 every 4 as needed Chest pain Pleuritic in nature Troponin x 4 negative and EKG unremarkable IV Toradol as needed for pain control Residence prior to admission: Was patient transferred from outlying hospital or ED Quality Measures DVT Prophylaxis: lovenox Garsia Catheter: absent Medication Reconciliation: Verified Admitted with these risk variables:None. Please see assessment and plan for further details. Estimated Date of Discharge less than 2 midnights Code Status Full Code; code status verified on 05/15/2024 with patient (capacity intact) Chief Complaint epigastric pain and pleuritic chest pain History of Present Illness this is a 68-year-old male with no significant past medical history other than history of chronic tobacco use disorder presents to [facility] as a direct transfer from [facility] where he presented with some chest pain and epigastric pain. Patient states he was in his usual state of health until this morning when he woke up with some epigastric pain radiating across his upper abdomen. Denies any nausea or vomiting. Patient does admit having pleuritic type chest pain that is worse with deep breathing and while sitting up. At [place] ED troponin and EKG changes were negative. CT imaging showed mild diverticulitis. Patient currently being admitted to [facility] for further evaluation of his epigastric pain and chest pain. Patient denies any fever or chills. Patient denies any urinary symptoms. Past Medical History Past Medical History: Diagnosis Date History of lumbar spinal fusion Past Surgical History No past surgical history on file. Family History No family history on file. Social History Social History Tobacco Use Smoking Status Not on file Smokeless Tobacco Not on file Social History Substance and Sexual Activity Alcohol Use Not on file Social History Substance and Sexual Activity Drug Use Not on file Allergy Information I have reviewed the patient's allergies. Patient has no known allergies. Home Medications Home medications were reviewed. Review Of Systems All relevant systems have been reviewed and are negative except as noted in HPI or below Physical Examination BP 103/68 Pulse 97 Temp 98.5 degrees F (36.9 degrees C) (Oral) Ht 6' 1 Wt 99.7 kg (219 lb 12.8 oz) BMI 29.00 kg/m General Appearance: alert; acutely ill appearing; in no acute distress HEENT: Head- normocephalic; Eyes- EOMI, sclera anicteric; Throat- mucous membranes moist Cardiovascular: regular rate and rhythm; normal S1, S2; no murmurs, rubs, clicks or gallops; peripheral edema absent Respiratory: lungs clear to auscultation; without wheezes, rales or rhonchi; on room air Abdomen: soft, tenderness present to palpation in the epigastric region and left upper and right upper quadrant, non-distended Neurological: oriented x 3; normal speech; no focal findings or movement disorder noted Musculoskeletal: no significant deformity or tenderness to palpation Skin: normal coloration Psych: normal mood and affect AUTHENTICATED BY MICHAEL ARNOLD ON 05/15/2024 13:18:07[facility] 05-06-2024 Evaluation note* Diagnosis Onset Date Resolution Status Admit Date Chronic pain acute April 12:53pm Lumbar radiculopathy acute Dece 2023 12:53pm Sacroiliitis acute April 12:53pm 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 acute May 272024 9:18am Neurogenic claudication due to lumbar spinal stenosis acute May 272024 9:18am [facility] Work Phone: 1(900) 451-393712-12-2024 Evaluation note* Diagnosis Onset Date Resolution Status Admit Date Chronic pain acute April 12:53pm Lumbar radiculopathy acute Dece 2023 12:53pm Sacroiliitis acute April 12:53pm 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 acute May 272024 9:18am Neurogenic claudication due to lumbar spinal stenosis acute May 272024 9:18am 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 acute July 22, 2024 11:00am Neurogenic claudication due to lumbar spinal stenosis acute July 22, 2024 11:00am [facility] Work Phone: 1(982) 903-397011-26-2024 Evaluation note* Diagnosis Onset Date Resolution Status Admit Date 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 acute April 20, 2024 10:01am Neurogenic claudication due to lumbar spinal stenosis acute April 20, 2024 10:01am Chronic pain acute April 12:53pm Lumbar radiculopathy acute Dece 2023 12:53pm Sacroiliitis acute April 12:53pm [facility] Work Phone: 1(717) 267-361511-08-2024 NoteHNO ID: [id number] Author: JASVIR LISA APRN.DATA TECHNICAL LEAD Service: ? Author Type: Nurse Practitioner Type: Progress Notes Filed: 04/02/2024 11:55 Note Text: Subjective Noticed a tick on him several days ago. Now he has a redness around the bite area he is concerned about. Patient is not having any other symptoms at this time. The history is provided by the patient. No foreign language instructor was used. Review of Systems Constitutional: Negative. Objective Physical Exam Constitutional: Appearance: Normal appearance. Pulmonary: Effort: Pulmonary effort is normal. Abdominal: Comments: Bite tuan in the area marked purple. Red area is redness around the bite tuan. Neurological: Mental Status: He is alert. PAST MEDICAL HISTORY Diagnosis Date Peripheral neuropathy No past surgical history on file. ALLERGIES Patient has no known allergies. MEDICATIONS No prescriptions on file. No family history on file. Social History Tobacco Use Smoking status: Every Day Tobacco comments: On e-cig now ASSESSMENT/PLAN: 1. Puncture wound - ICD9: 879.8, ICD10: T14.8XXA - DOXYCYCLINE HYCLATE 100 MG CAPSULE Patient is educated about proper use of medication and supportive therapy. Will monitor for signs and symptoms of red flags. Patient was agreeable to this care plan. Jasvir Lisa APRN.[facility] History of Present illness Narrative* Jasvir Lisa APRN.DANIEL - 04/02/2024 11:51 AM EST Images from the original note were not included. Subjective Noticed a tick on him several days ago. Now he has a redness around the bite area he is concerned about. Patient is not having any other symptoms at this time. The history is provided by the patient. No foreign language instructor was used. Review of Systems Constitutional: Negative. Objective Physical Exam Constitutional: Appearance: Normal appearance. Pulmonary: Effort: Pulmonary effort is normal. Abdominal: Comments: Bite tuan in the area marked purple. Red area is redness around the bite tuan. Neurological: Mental Status: He is alert. PAST MEDICAL HISTORY Diagnosis Date Peripheral neuropathy No past surgical history on file. ALLERGIES Patient has no known allergies. MEDICATIONS No prescriptions on file. No family history on file. Social History Tobacco Use Smoking status: Every Day Tobacco comments: On e-cig now ASSESSMENT/PLAN: 1. Puncture wound - ICD9: 879.8, ICD10: T14.8XXA - DOXYCYCLINE HYCLATE 100 MG CAPSULE Patient is educated about proper use of medication and supportive therapy. Will monitor for signs and symptoms of red flags. Patient was agreeable to this care plan. Jasvir Lisa APRN.DATA TECHNICAL LEAD documented in this encounterM[facility]09-06-2024 Evaluation note* Diagnosis Onset Date Resolution Status Admit Date Chronic pain acute January 8:47am Greater trochanteric bursiti s of left hip acute January 29 8:47am Primary osteoarthritis of le ft hip acute January 29 8:47am Right shoulder pain acute 2023 8:47am Chronic pain acute February 172023 1:19pm Greater trochanteric bursiti s of left hip acute February 18, 2024 1:19pm Lumbar radiculopathy acute Jan 1:19pm Primary osteoarthritis of le ft hip acute February 18, 2024 1:19pm Right shoulder pain acute 2023 1:19pm [facility] Work Phone: 1(666) 478-191409-19-2023 Evaluation note* Encounter Date Diagnosis Assessment Notes Treatment Notes Treatment Clinical Notes Jan, Other intervertebral disc degeneration, lumbar region (ICD-10 - M51.36) -Xray lumbar reviewed There is prior laminectomy and fusion with posterior rods, pedicle screws and interbody, fusion devices extending from L4 through S1. There is subtle angulation involving one of the S1 pedicle screws on the lateral images where fractured hardware is difficult to exclude. No developing compression deformities are noted. There is still stairstep retrolisthesis of L2 on L3 and L3 on L4. This does not change with extension though there is improvement at L2-3 with flexion. There is slight disc space narrowing at L2-3 and L3-4. There is endplates spurring. Lower lumbar facet hypertrophy is seen. The SI joints are intact. No paraspinal soft tissue abnormalities are present. -Will order MRI of lumbar spine. -Will order PT at [facility], [id number] [facility]. [id number] . Will follow up in 12 weeks. or once completed PT and imaging Medical decision making shows a new problem to me with further workup planned or suggested with the potential for extensive treatment options that were considered with the most applicable given this patient's situation as noted above. Treatment options considered include a combination of physical therapy approaches, pharmacologic management, and interventional procedures. Those most applicable to the patient were discussed at this time. Risk of complications and/or morbidity and mortality is high given that acute and chronic pain poses a threat to life and bodily function if undertreated, poorly treated or with failure to maintain adequate treatment and timely follow up. Given the serious and fluctuating nature of pain with extensive consideration for whenever pain changes, there always remains the possibility of prolonged functional impairment requiring constant patient reassessment and high-level medical decision making. The amount and complexity of data reviewed is moderate given that patient labs, radiology reports, and other test were obtained, reviewed and summarized as applicable from the physician portal and/or outside medical records. Pertinent positive and negative findings were considered in medical decision-making. Jan, Lumbar radiculopathy (ICD-10 - M54.16) Jan, BMI 31.0-31.9,adult (ICD-10 - Z68.31) Jan, Depression screening negative (ICD-10 - Z13.31) 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 acute Neurogenic claudication due to lumbar spinal stenosis acute [facility] Work Phone: Evaluation note* Diagnosis Onset Date Resolution Status Spondylolisthesis of lumbar region noneactive Lumbar stenosis with neurogenic claudication noneactive Greater trochanteric bursitis of left hip acute 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 acute Neurogenic claudication due to lumbar spinal stenosis acute Chronic pain acute Greater trochanteric bursitis of left hip acute Left hip pain acute Neurogenic claudication due to lumbar spinal stenosis acute Sacroiliitis acute [facility] Work Phone: Evaluation note* Diagnosis Onset Date Resolution Status Spondylolisthesis of lumbar region noneactive Lumbar stenosis with neurogenic claudication noneactive Greater trochanteric bursitis of left hip acute 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 acute Neurogenic claudication due to lumbar spinal stenosis acute Chronic pain acute Greater trochanteric bursitis of left hip acute Left hip pain acute Neurogenic claudication due to lumbar spinal stenosis acute Sacroiliitis acute Chronic pain acute Greater trochanteric bursitis of left hip acute Left hip pain acute Neurogenic claudication due to lumbar spinal stenosis acute Sacroiliitis acute [facility] Work Phone: Evaluation note* Diagnosis Onset Date Resolution Status Chronic pain acute Greater trochanteric bursitis of left hip acute Left hip pain acute Neurogenic claudication due to lumbar spinal stenosis acute Sacroiliitis acute Greater trochanteric bursitis of left hip acute Lumbar adjacent segment disease with spondylolisthesis acute [facility] Work Phone: Evaluation note* Diagnosis Onset Date Resolution Status Chronic pain acute Greater trochanteric bursitis of left hip acute Left hip pain acute Neurogenic claudication due to lumbar spinal stenosis acute Sacroiliitis acute Greater trochanteric bursitis of left hip acute Lumbar adjacent segment disease with spondylolisthesis acute Lumbar pain acute [facility] Work Phone: Evaluation note* Diagnosis Onset Date Resolution Status Lumbar pain acute Chronic pain acute Greater trochanteric bursitis of left hip acute Primary osteoarthritis of left hip acute Right shoulder pain acute [facility] Work Phone: Evaluation note* Diagnosis Puncture wound- Primary Open wound(s) (multiple) of unspecified site(s), without mention of complication documented in this encounter [facility]* Diagnosis Lower resp. tract infection- Primary Other diseases of respiratory system, not elsewhere classified Pneumonia exposure Contact with or exposure to other viral diseases documented in this encounter [facility] note* Diagnosis Acute cough documented in this encounter [facility] general Narrative - Reported* Type Description Date Medical History L Spine - DDD - Sees NeuroSurg Medical History Peripheral Neuropathy - Left Souza d Medical History COPD - mild Medical History Arthritis Medical History scarlet fever Surgical History Left Elbow - left wrist 07/2011 Surgical History Right Foot 1967 Surgical History Left ear T tube 2012 Surgical History Sinus Surgery 2000 Surgical History L spine surgery 10/2014 Surgical History cholecystectomy Hospitalization History Right Foot age [address] [facility] [employer] Other Hospital Discharge instructionsAmbulatory Orders* Referral to PT / OT / Speech (PT/OT/SP) Location: None [facility] Work Phone: Reason for referral (narrative)No reason for referral information availableWGerman Hospital Work Phone: Reason for visit NarrativePAIN MANAGEMENT REFERRAL UPDATENortEagleville Hospital [employer] Other Reason for Referral Reason Evaluate and treat - Lumbar pain Diagnosis 1 Other intervertebral disc degeneration, lumbar region (M51.36) Referral Organization [facility] urosurgery Referring Provider First Name Jaqueline Referring Provider Last Name Navid Referring Provider Specialty Nurse Pract itioner Referred Organization Unknown Facility Referred Provider Specialty Physical The rapist Referral Priority Stat General Notes Jose Pizano i 02/11/2023 10:47:53 AM > facility is out of state [facility] [id number] [facility], [id number] - [phone] Chief Complaint and Reason for Visit Chief Complaint m51.36 Chief Complaint surgical consult follow up surgical consult Reason for Visit Spondylolisthesis of lumbar region Lumbar stenosis with neurogenic claudication Greater trochanteric bursitis of left hip Lumbar adjacent segment disease with spondylolisthesis Neurogenic claudication due to lumbar spinal stenosis Chief Complaint surgical consult follow up surgical consult REFF BY DR NANCY CARR Reason for Visit Spondylolisthesis of lumbar region Lumbar stenosis with neurogenic claudication Greater trochanteric bursitis of left hip Lumbar adjacent segment disease with spondylolisthesis Neurogenic claudication due to lumbar spinal stenosis Chronic pain Greater trochanteric bursitis of left hip Left hip pain Neurogenic claudication due to lumbar spinal stenosis Sacroiliitis Chief Complaint surgical consult follow up surgical consult REFF BY DR CRUZ BRUNO FOLLOW UP AFTER LEFT HIP INJ Reason for Visit Spondylolisthesis of lumbar region Lumbar stenosis with neurogenic claudication Greater trochanteric bursitis of left hip Lumbar adjacent segment disease with spondylolisthesis Neurogenic claudication due to lumbar spinal stenosis Chronic pain Greater trochanteric bursitis of left hip Left hip pain Neurogenic claudication due to lumbar spinal stenosis Sacroiliitis Chronic pain Greater trochanteric bursitis of left hip Left hip pain Neurogenic claudication due to lumbar spinal stenosis Sacroiliitis Chief Complaint FOLLOW UP AFTER LEFT HIP INJ f/u after injections m48.062 Increased low back pain Reason for Visit Chronic pain Greater trochanteric bursitis of left hip Left hip pain Neurogenic claudication due to lumbar spinal stenosis Sacroiliitis Greater trochanteric bursitis of left hip Lumbar adjacent segment disease with spondylolisthesis Chief Complaint FOLLOW UP AFTER LEFT HIP INJ f/u after injections m48.062 Increased low back pain Reason for Visit Chronic pain Greater trochanteric bursitis of left hip Left hip pain Neurogenic claudication due to lumbar spinal stenosis Sacroiliitis Greater trochanteric bursitis of left hip Lumbar adjacent segment disease with spondylolisthesis Lumbar pain Chief Complaint m48.062 Increased low back pain increase L hip pain Reason for Visit Lumbar pain Chronic pain Greater trochanteric bursitis of left hip Primary osteoarthritis of left hip Right shoulder pain Chief Complaint m48.062 Increased low back pain increase L hip pain M25.511;M16.12 Reason for Visit Lumbar pain Chronic pain Greater trochanteric bursitis of left hip Primary osteoarthritis of left hip Right shoulder pain Chief Complaint m48.062 Increased low back pain increase L hip pain M25.511;M16.12 hip pain Reason for Visit Lumbar pain Chronic pain Greater trochanteric bursitis of left hip Primary osteoarthritis of left hip Right shoulder pain Chief Complaint Admit Date increase L hip pain January 30, 2024 8:47am M25.511;M16.12 January 30, 2024 10:37am hip pain February 11, 2024 8:23am follow up after hip inj February 18, 2024 1:19pm caudal epidural steroid injection Octobe r 2023 4:20pm m25.552 April 01, 2024 1 0:21am Reason for Visit Admit Date Chronic pain January 30, 2024 8:47am Greater trochanteric bursitis of left hi p January 30, 2024 8:47am Primary osteoarthritis of left hip Sept[facility] [place] 2023 8:47am Right shoulder pain January 30, 2024 8:47am Chronic pain February 18, 2024 1:19pm Greater trochanteric bursitis of left hi p February 18, 2024 1:19pm Lumbar radiculopathy February 17 1:19pm Primary osteoarthritis of left hip Sept[facility] 2023 1:19pm Right shoulder pain February 18, 2024 1:19pm Chief Complaint Admit Date m25.552 April 01, 2024 1 0:21am M54.50 April 20, 2024 9:10am follow up after ortho visit March 10:01am Discuss injection after neuro visit [facility] 2023 12:53pm M48.062 M51.36 M43.16 May 13 10:38am M81.0 June 10, 2024 1 0:21am Reason for Visit Admit Date Lumbar adjacent segment disease with spo ndylolisthesis April 20, 2024 10:01am Neurogenic claudication due to lumbar sp inal stenosis April 20, 2024 10:01am Chronic pain May 06, 2024 12:53pm Lumbar radiculopathy May 06, 2024 12:53pm Sacroiliitis May 06, 2024 12:53pm Chief Complaint Admit Date Discuss injection after neuro visit [facility] 2023 12:53pm M48.062 M51.36 M43.16 May 13 10:38am M81.0 June 10, 2024 1 0:21am dexa results June 22, 2024 9 :18am Spondylolisthesis July 21, 2024 8:47am Reason for Visit Admit Date Chronic pain May 06, 2024 12:53pm Lumbar radiculopathy May 06, 2024 12:53pm Sacroiliitis May 06, 2024 12:53pm Lumbar adjacent segment disease with spo ndylolisthesis June 22, 2024 9:18am Neurogenic claudication due to lumbar sp inal stenosis June 22, 2024 9:18am Chief Complaint Admit Date Discuss injection after neuro visit [facility] 2023 12:53pm M48.062 M51.36 M43.16 May 13 10:38am M81.0 June 10, 2024 1 0:21am dexa results June 22, 2024 9 :18am Spondylolisthesis July 21, 2024 8:47am sign consent July 22, 2024 11:00am Chief Complaint Admit Date Discuss injection after neuro visit Dece mber 2023 12:53pm M48.062 M51.36 M43.16 May 13 10:38am M81.0 June 10, 2024 1 0:21am dexa results June 22, 2024 9 :18am Spondylolisthesis July 21, 2024 8:47am sign consent July 22, 2024 11:00am F17.200 July 28, 2024 11:1 1am Reason for Visit Admit Date Chronic pain May 06, 2024 12:53pm Lumbar radiculopathy May 06, 2024 12:53pm Sacroiliitis May 06, 2024 12:53pm Lumbar adjacent segment disease with spo ndylolisthesis June 22, 2024 9:18am Neurogenic claudication due to lumbar sp inal stenosis June 22, 2024 9:18am Lumbar adjacent segment disease with spo ndylolisthesis July 22, 2024 11:00am Neurogenic claudication due to lumbar sp inal stenosis July 22, 2024 11:00am Chief Complaint Admit Date M81.0 June 10, 2024 1 0:21am dexa results June 22, 2024 9 :18am Spondylolisthesis July 21, 2024 8:47am sign consent July 22, 2024 11:00am F17.200 July 28, 2024 11:1 1am Spondylolisthesis August 11, 2024 8:3 6am Spondylolisthesis August 11, 2024 12: 59pm Spondylolisthesis August 12, 2024 7:5 6am Reason for Visit Admit Date Lumbar adjacent segment disease with spo ndylolisthesis June 22, 2024 9:18am Neurogenic claudication due to lumbar sp inal stenosis June 22, 2024 9:18am Lumbar adjacent segment disease with spo ndylolisthesis July 22, 2024 11:00am Neurogenic claudication due to lumbar sp inal stenosis July 22, 2024 11:00am Neurogenic claudication due to lumbar sp inal stenosis August 11, 2024 8:36am Chief Complaint Admit Date M81.0 June 10, 2024 1 0:21am dexa results June 22, 2024 9 :18am Spondylolisthesis July 21, 2024 8:47am sign consent July 22, 2024 11:00am F17.200 July 28, 2024 11:1 1am Spondylolisthesis August 11, 2024 8:3 6am Spondylolisthesis August 11, 2024 12: 59pm Spondylolisthesis August 12, 2024 7:5 6am 2 wk po PLIF jaqueline August 26, 2024 1:0 9pm Chief Complaint Admit Date THYROMEGALY June 19, 2024 1 1:10am pain, fall- RIGHT KNEE September 01, 2024 4 :09pm Chief Complaint Admit Date Spondylolisthesis July 21, 2024 8:47am sign consent July 22, 2024 11:00am F17.200 July 28, 2024 11:1 1am Spondylolisthesis August 11, 2024 8:3 6am Spondylolisthesis August 11, 2024 12: 59pm Spondylolisthesis August 12, 2024 7:5 6am 2 wk po PLIF jaqueline August 26, 2024 1:0 9pm M54.16 October 05, 2024 10:55 am 6 week po PLIF w/xray October 05, 2024 12: 56pm Reason for Visit Admit Date Lumbar adjacent segment disease with spo ndylolisthesis July 22, 2024 11:00am Neurogenic claudication due to lumbar sp inal stenosis July 22, 2024 11:00am Neurogenic claudication due to lumbar sp inal stenosis August 11, 2024 8:36am Lumbar adjacent segment disease with spo ndylolisthesis August 26, 2024 1:09pm Neurogenic claudication due to lumbar sp inal stenosis August 26, 2024 1:09pm Lumbar adjacent segment disease with spo ndylolisthesis October 05, 2024 12:56pm Neurogenic claudication due to lumbar sp inal stenosis October 05, 2024 12:56pm Chief Complaint Admit Date pain, fall- RIGHT KNEE September 01, 2024 4 :09pm NICOTINE DEPENDENCE November 23, 2024 8:01a m Chief Complaint Admit Date pain, fall- RIGHT KNEE September 01, 2024 4 :09pm NICOTINE DEPENDENCE November 23, 2024 8:01a m DIAGNOSIS OF LIVER CYST November 29, 2024 8 :14am Advance Directives No Advanced Directives Records Found Advance Directive Response Recorded Date/ Time Advance Directives No January 9:47am Advance Directive Response Recorded Date/ Time Advance Directives No January 8:47am Family History No Family History Records Found Relationship Condition Age at Onset Recorded Date/T tristin brother Hypertension Unknown Heart disease Unknown Diabetes mellitus Unknown father Unknown Relationship Condition Age at Onset Recorded Date/T tristin brother Diabetes mellitus Unknown Heart disease Unknown Hypertension Unknown father Heart disease Unknown Unknown mother Unknown Dementia Unknown Summary Purpose Additional Source Comments REASON FOR VISIT (unrecogniz ed section and content) Reason Comments Tick Bite Middle of back, and Left side area, 4-5 days tick removed, redness, swelling Reason Comments Cough With chest congestio n x 1 week Care Teams (unrecognized sec tion and content) Team Status: Active Member Role Status Dates PHYSICIAN NO FAMILY Primary Care Provider Active Team Status: Inactive Member Role Status Dates PHYSICIAN NO FAMILY Primary Care Provider Active Start: December 18, 2023 End: December 18, 2023 Nisreen Flores APRN Attending Provider Active Start: December 18, 2023 End: December 18, 2023 Team Status: Inactive Member Role Status Dates Nisreen Flores APRN Attending Provider Active Start: December 18, 2023 End: December 18, 2023 PHYSICIAN NO FAMILY Primary Care Provider Active Start: December 18, 2023 End: December 18, 2023 Team Status: Inactive Member Role Status Dates PHYSICIAN NO FAMILY Primary Care Provider Active Start: January 30, 2024 End: January 30, 2024 Adiel Sandoval MD Attending Provider Active Sta rt: January 30, 2024 End: January 30, 2024 Team Status: Active Member Role Status Dates Bruno Cruz MD Primary Care Provider Active S tart: September 23, 2023 Adiel Sandoval MD Attending Provider Active Sta rt: September 23, 2023 Team Status: Inactive Member Role Status Dates Bruno Cruz MD Primary Care Provider Active S tart: October 01, 2023 End: October 01, 2023 Adiel Sandoval MD Attending Provider Active Sta rt: October 01, 2023 End: October 01, 2023 Team Status: Inactive Member Role Status Dates Bruno Cruz MD Primary Care Provide r, Attending Provider Active Start: October 09, 2023 End: October 09, 2023 Team Status: Active Member Role Status Dates PHYSICIAN NO FAMILY Primary Care Provider Active Start: December 18, 2023 Nisreen Flores APRN Attending Provider Active Start: December 18, 2023 Team Status: Active Member Role Status Dates NON STAFF Primary Care Provider Active Team Status: Inactive Member Role Status Dates NON STAFF Primary Care Provider Active CARLEY Gray Attending Provider Active Team Status: Inactive Member Role Status Dates NON STAFF Primary Care Provider Active Start: July 22, 2023 End: July 22, 2023 Bruno Curz MD Attending Provider Active Star t: July 22, 2023 End: July 22, 2023 Team Status: Inactive Member Role Status Dates NON STAFF Primary Care Provider Active Start: September 09, 2023 End: September 09, 2023 Bruno Cruz MD Attending Provider Active Star t: September 09, 2023 End: September 09, 2023 Team Status: Active Member Role Status Dates Bruno Cruz MD Primary Care Provider Active Team Status: Inactive Member Role Status Dates Adiel Sandoval MD Attending Provider Active Sta rt: September 17, 2023 End: September 17, 2023 Bruno Cruz MD Primary Care Provide r, Referring Provider Active Start: September 17, 2023 End: September 17, 2023 Team Status: Inactive Member Role Status Dates PHYSICIAN NO FAMILY Primary Care Provider Active Start: February 11, 2024 End: February 11, 2024 Adiel Sandoval MD Attending Provider Active Sta rt: February 11, 2024 End: February 11, 2024 Team Status: Inactive Member Role Status Dates PHYSICIAN NO FAMILY Primary Care Provider Active Start: February 18, 2024 End: February 18, 2024 Adiel Sandoval MD Attending Provider Active Sta rt: February 18, 2024 End: February 18, 2024 Team Status: Active Member Role Status Dates PHYSICIAN NO FAMILY Primary Care Provider Active Start: February 24, 2024 Adiel Sandoval MD Attending Provider Active Sta rt: February 24, 2024 Team Status: Inactive Member Role Status Dates PHYSICIAN NO FAMILY Primary Care Provider Active Start: February 24, 2024 End: February 24, 2024 Adiel Sandoval MD Attending Provider Active Sta rt: February 24, 2024 End: February 24, 2024 Team Status: Inactive Member Role Status Dates PHYSICIAN NO FAMILY Primary Care Provider Active Start: April 01, 2024 End: April 01, 2024 Lukas Tolliver PA-C Attending Provider Active S tart: April 01, 2024 End: April 01, 2024 Team Status: Inactive Member Role Status Dates PHYSICIAN NO FAMILY Primary Care Provider Active Start: April 20, 2024 End: April 20, 2024 Bruno Cruz MD Attending Provider Active Star t: April 20, 2024 End: April 20, 2024 Team Status: Inactive Member Role Status Dates PHYSICIAN NO FAMILY Primary Care Provider Active Start: May 06, 2024 End: May 06, 2024 Adiel Sandoval MD Attending Provider Active Sta rt: May 06, 2024 End: May 06, 2024 Team Status: Inactive Member Role Status Dates PHYSICIAN NO FAMILY Primary Care Provider Active Start: May 13, 2024 End: May 13, 2024 Bruno Cruz MD Attending Provider Active Star t: May 13, 2024 End: May 13, 2024 Team Status: Inactive Member Role Status Dates PHYSICIAN NO FAMILY Primary Care Provider Active Start: June 10, 2024 End: June 10, 2024 Bruno Cruz MD Attending Provider Active Star t: June 10, 2024 End: June 10, 2024 Team Status: Inactive Member Role Status Dates PHYSICIAN NO FAMILY Primary Care Provider Active Start: June 22, 2024 End: June 22, 2024 Bruno Cruz MD Attending Provider Active Star t: June 22, 2024 End: June 22, 2024 Team Status: Inactive Member Role Status Dates Bruno Cruz MD Attending Provider Active Star t: July 21, 2024 End: July 21, 2024 NON STAFF Primary Care Provider Active Start: July 21, 2024 End: July 21, 2024 Team Status: Inactive Member Role Status Bruce Cruz MD Attending Provider Active Star t: July 22, 2024 End: July 22, 2024 NON STAFF Primary Care Provider Active Start: July 22, 2024 End: July 22, 2024 Team Status: Inactive Member Role Status Dates NON STAFF Primary Care Provider Active Start: July 28, 2024 End: July 28, 2024 Bruno Cruz MD Attending Provider Active Star t: July 28, 2024 End: July 28, 2024 Team Status: Inactive Member Role Status Dates PHYSICIAN NO FAMILY Primary Care Provider Active Start: August 11, 2024 End: August 13, 2024 Bruno Cruz MD Admit Provider, Atte nding Provider Active Start: August 11, 2024 End: August 13, 2024 Team Status: Active Member Role Status Dates PHYSICIAN NO FAMILY Primary Care Provider Active Start: August 11, 2024 Bruno Cruz MD Admit Provider, Atte nding Provider, Other Provider Active Start: August 11, 2024 Team Status: Active Member Role Status Dates PHYSICIAN NO FAMILY Primary Care Provider Active Start: August 12, 2024 Bruno Cruz MD Admit Provider, Atte nding Provider, Other Provider Active Start: August 12, 2024 Team Status: Inactive Member Role Status Dates PHYSICIAN NO FAMILY Primary Care Provider Active Start: August 26, 2024 End: August 26, 2024 Bruno Cruz MD Attending Provider Active Star t: August 26, 2024 End: August 26, 2024 Team Status: Active Member Role Status Dates Dr. Fabiana Sharma MD Primary Care Provider Active Team Status: Inactive Member Role Status Dates Dr. Fabiana Sharma MD Primary Care Provider Active Start: June 10, 2024 End: June 10, 2024 Dr. Fabiana Sharma MD Attending Provider Active Start: June 10, 2024 End: June 10, 2024 Dr. Fabiana Sharma MD Referring Provider Active Start: June 10, 2024 End: June 10, 2024 Team Status: Inactive Member Role Status Dates Dr. Fabiana Sharma MD Primary Care Provider Active Start: June 19, 2024 End: June 19, 2024 Dr. Fabiana Sharma MD Attending Provider Active Start: June 19, 2024 End: June 19, 2024 Dr. Fabiana Sharma MD Referring Provider Active Start: June 19, 2024 End: June 19, 2024 Team Status: Inactive Member Role Status Dates Dr. Fabiana Sharma MD Primary Care Provider Active Start: September 01, 2024 End: September 01, 2024 Dr. Fabiana Sharma MD Attending Provider Active Start: September 01, 2024 End: September 01, 2024 Dr. Fabiana Sharma MD Referring Provider Active Start: September 01, 2024 End: September 01, 2024 Keg Header Relationship Specialty Start Date End Date Fabiana Sharma MD [address] [facility] [address] [place] [address] PCP - General Family Medicine 09/20/24 Team Status: Active Member Role Status Dates PHYSICIAN NO FAMILY Primary Care Provider Active Start: October 05, 2024 Bruno Cruz MD Attending Provider Active Star t: October 05, 2024 Team Status: Inactive Member Role Status Dates PHYSICIAN NO FAMILY Primary Care Provider Active Start: October 05, 2024 End: October 05, 2024 Bruno Cruz MD Attending Provider Active Star t: October 05, 2024 End: October 05, 2024 Team Status: Inactive Member Role Status Dates Dr. Fabiana Sharma MD Primary Care Provider Active Start: October 07, 2024 End: October 07, 2024 Dr. Fabiana Sharma MD Attending Provider Active Start: October 07, 2024 End: October 07, 2024 Dr. Fabiana Sharma MD Referring Provider Active Start: October 07, 2024 End: October 07, 2024 Team Status: Active Member Role/Relationship Status Dates Dr. Fabiana Sharma MD Primary Care Provider Active Team Status: Inactive Member Role/Relationship Status Dates Dr. Fabiana Sharma MD Primary Care Provider Active Start: September 01, 2024 End: September 01, 2024 Dr. Fabiana Sharma MD Attending Provider Active Start: September 01, 2024 End: September 01, 2024 Dr. Fabiana Sharma MD Referring Provider Active Start: September 01, 2024 End: September 01, 2024 Team Status: Inactive Member Role/Relationship Status Dates Dr. Fabiana Sharma MD Primary Care Provider Active Start: October 07, 2024 End: October 07, 2024 Dr. Fabiana Sharma MD Attending Provider Active Start: October 07, 2024 End: October 07, 2024 Dr. Fabiana Sharma MD Referring Provider Active Start: October 07, 2024 End: October 07, 2024 Team Status: Inactive Member Role/Relationship Status Dates Dr. Fabiana Sharma MD Primary Care Provider Active Start: November 23, 2024 End: November 23, 2024 Dr. Fabiana Sharma MD Attending Provider Active Start: November 23, 2024 End: November 23, 2024 Dr. Fabiana Sharma MD Referring Provider Active Start: November 23, 2024 End: November 23, 2024 Team Status: Inactive Member Role/Relationship Status Dates Dr. Fabiana Sharma MD Primary Care Provider Active Start: November 29, 2024 End: November 29, 2024 Dr. Fabiana Sharma MD Attending Provider Active Start: November 29, 2024 End: November 29, 2024 Dr. Fabiana Sharma MD Referring Provider Active Start: November 29, 2024 End: November 29, 2024 Goals (unrecognized section and content) Goals may be documented in a n alternate section Source Comments (unrecognize d section and content) In the event this informatio n is protected by the Federal Confidentiality of Alcohol and Drug Abuse Patient Records regulations: The Federal rules restrict any use of the information to criminally investigate or prosecute any alcohol or drug abuse patient.[facility] the event this information is protected by the Federal Confidentiality of Alcohol and Drug Abuse Patient Records regulations: The Federal rules restrict any use of the information to criminally investigate or prosecute any alcohol or drug abuse patient.[facility] the event this information is protected by the Federal Confidentiality of Alcohol and Drug Abuse Patient Records regulations: The Federal rules restrict any use of the information to criminally investigate or prosecute any alcohol or drug abuse patient.[facility] (unrecognized sect ion and content) No Status Records FoundNo Status Records FoundNo Status Records FoundNo Status Records FoundNo Status Records Found INFORMATION SOURCE (unrecogn ized section and content) DATE CREATED AUTHOR 05/18/2024 [facility] DATE CREATED AUTHOR AUTHOR'S ORGANIZ ATION 06/06/2024 [facility] DATE CREATED AUTHOR AUTHOR'S ORGANIZ ATION 09/29/2024 [facility] DATE CREATED AUTHOR AUTHOR'S ORGANIZ ATION 12/06/2024 [facility] DATE CREATED AUTHOR AUTHOR'S ORGANIZ ATION 12/15/2024 [facility] FOR RECORDS PERTAINING TO PATIENTS WHO ARE OR HAVE BEEN ENROLLED IN A CHEMICAL DEPENDENCY/SUBSTANCEABUSE PROGRAM, SOME INFORMATION MAY BE OMITTED. This clinical summary was aggregated from multiple sources. Caution should be exercised in using it in the provision of clinical care. This summary normalizes information from multiple sources, and as a consequence, information in this document may materially change the coding, format and clinical context of patient data. In addition, data may be omitted in some cases. CLINICAL DECISIONS SHOULD BE BASED ON THE PRIMARY CLINICAL RECORDS. [employer] [facility]. provides no warranty or guarantee of the accuracy or completeness of information in this document.
== END | disposition home or self-care (01) ==
LOC: CT 06:05
PROVIDERS: PCP Family Medicine; Referring Provider Family Medicine; Visit Provider Family Medicine
DX: K76.89 Other specified diseases of liver (principal)
CPT/HCPCS: 74170; Q9967